=== PATIENT | female | born 1990 | race Caucasian/White ===

== ENCOUNTER 2016-06-27 00:11 | Emergency (ER) | payer OTHER ==
[2016-06-27] MEDS ORDERED: Ketorolac INJ* 30 MG/ML 1 ML VIAL IV ONE (00:33)
[2016-06-27] MEDS ORDERED: Ondansetron INJ* 2 MG/ML VIAL IV ONE (00:33)
[2016-06-27] MEDS ORDERED: NS 0.9% 1000 ML* 2,000 ML IV ONE (00:33)
[2016-06-27 00:55] LABS: ALT 14 U/L (7-52); AST 35 U/L (13-39); Albumin 4.4 g/dL (3.2-5.2); Alkaline Phosphatase 30 U/L (34-104); Anion Gap 7 mmol/L (2-11); BUN/Creatinine Ratio 13.5 (8-20); Blood Urea Nitrogen 12 mg/dL (6-24); C Reactive Protein 19.38 mg/L (< 5.00); CO2 Carbon Dioxide 27 mmol/L (22-32); Calcium 9.4 mg/dL (8.6-10.3); Chloride 103 mmol/L (101-111); EGFR African American 98.6 (>60); EGFR Non-African American 76.7 (>60); Globulin 2.8 g/dL (2-4); Glucose 92 mg/dL (70-100); Potassium 3.6 mmol/L (3.5-5.0); Sodium 137 mmol/L (133-145); Total Protein 7.2 g/dL (6.4-8.9)
[2016-06-27 01:03] LABS: Hematocrit 42 % (35-47); Hemoglobin 14.4 g/dl (12.0-16.0); Mean Corpuscular HGB Conc 34 g/dl (31-36); Mean Corpuscular Hemoglobin 32 pg (27-31); Mean Corpuscular Volume 93 fL (80-97); Mean Platelet Volume 9 um3 (7.4-10.4); Red Blood Count 4.51 10^6/ul (4.0-5.4); Red Cell Distribution Width 13 % (10.5-15); White Blood Count 3.3 10^3/ul (3.5-10.8)
[2016-06-27 01:05] LABS: Comments Flag Yes
[2016-06-27 01:06] LABS: Add Diff/Slide Review? Slide Review Added
[2016-06-27 01:10] LABS: Urine Bacteria Absent (Absent); Urine Bilirubin Negative (Negative); Urine Glucose Negative (Negative); Urine Nitrite Negative (Negative)
[2016-06-27] MEDS ORDERED: Iohexol 300* (CONTRAST) 10 ML SDV IV ONE (01:18)
[2016-06-27] MEDS ORDERED: Ondansetron ODT TAB* 4 MG PO ONE (03:42)
--- NOTE | 2016-06-27 03:48 | ED ---
Tom Montes SooYoung, scribed for Andrea Melchor MD on 06/27/16 at 0040 . Complex/Multi-Sys Presentation - HPI Summary HPI Summary: A 26 y/o F presents to ED with c/o rectal bleeding (5x) onset three hours ago. Associated sx onset a few days include vomiting, fever, midline abd pain described as bloating, melena. She rates the pain as 8 out of 10. Rectal bleeding was "dark red, clotty" and occurred even when she was not having a BM. She is unsure of the amount of blood passed, but says "maybe a teaspoon." Denies dysuria, vaginal bleeding or discharge. She says she has a friend who is also sick currently with vomiting. LNMP: around 06/02/2016. - History Of Current Complaint Chief Complaint: EDNauseaVomitDiarrh Time Seen by Provider: 06/27/16 00:23 Hx Obtained From: Patient Onset/Duration: Lasting Hours, Lasting Days, Still Present Timing: Constant Severity Currently: Moderate Severity Initially: Moderate Associated Signs And Symptoms: Positive: Other - see HPI - Allergies/Home Medications Allergies/Adverse Reactions: Allergies Allergy/AdvReac Type Severity Reaction Status Date / Time Diphenhydramine Allergy Hallucinati Verified 04/20/16 15:18 [From Benadryl] ons PMH/Surg Hx/FS Hx/Imm Hx Previously Healthy: Yes Endocrine/Hematology History: Denies: Hx Diabetes, Hx Thyroid Disease Cardiovascular History: Reports: Other Cardiovascular Problems/Disorders - SVT Denies: Hx Congestive Heart Failure, Hx Hypertension, Hx Pacemaker/ICD Respiratory History: Denies: Hx Asthma, Hx Chronic Obstructive Pulmonary Disease (COPD) GI History: Denies: Hx Ulcer History: Denies: Hx Dialysis, Hx Renal Disease Musculoskeletal History: Reports: Hx Scoliosis Sensory History: Reports: Hx Contacts or Glasses Denies: Hx Hearing Aid Opthamlomology History: Reports: Hx Contacts or Glasses Psychiatric History: Denies: Hx Panic Disorder - Surgical History Surgery Procedure, Year, and Place: tubes in ears - childhood; Infectious Disease History: No Infectious Disease History: Denies: Hx Clostridium Difficile, Hx Hepatitis, Hx Human Immunodeficiency Virus (HIV), Hx of Known/Suspected MRSA, Hx Shingles, Hx Tuberculosis, Hx Known/ Suspected VRE, Hx Known/Suspected VRSA, History Other Infectious Disease, Traveled Outside the [place] in Last 30 Days - Family History Known Family History: Positive: Blood Disorder - Anemia, Other - A Fib, murmur - Social History Occupation: Employed Full-time Lives: With Family Alcohol Use: Weekly Hx Substance Use: No Substance Use Type: Reports: None Hx Tobacco Use: No Smoking Status (MU): Never Smoked Tobacco Review of Systems Positive: Fever Positive: Abdominal Pain, Vomiting, Nausea Positive: other - melena, rectal bleeding without BM. Negative: dysuria, discharge - neg: vag bleeding and discharge All Other Systems Reviewed And Are Negative: Yes Physical Exam Triage Information Reviewed: Yes Vital Signs On Initial Exam: Initial Vitals Temp Pulse Resp BP Pulse Ox 98.8 F 80 18 115/73 100 06/27/16 00:32 06/27/16 00:32 06/27/16 00:32 06/27/16 00:32 06/27/16 00:32 Vital Signs Reviewed: Yes Appearance: Positive: Well-Appearing, Pain Distress - MILD Skin: Positive: Warm, Skin Color Reflects Adequate Perfusion, Dry Head/Face: Positive: Normal Head/Face Inspection Eyes: Positive: EOMI, ESA ENT: Positive: Normal ENT inspection, Other - ORAL MUCOSA MOIST Neck: Positive: Supple, Nontender Respiratory/Lung Sounds: Positive: Clear to Auscultation, Breath Sounds Present Cardiovascular: Positive: RRR Abdomen Description: Positive: Soft, Other: - TENDER IN PERUMBILICAL REGION Bowel Sounds: Positive: Hypoactive Musculoskeletal: Positive: Normal, Strength/ROM Intact Neurological: Positive: Normal, Sensory/Motor Intact, Alert, Oriented to Person Place, Time Psychiatric: Positive: Affect/Mood Appropriate Diagnostics - Vital Signs Vital Signs Temp Pulse Resp BP Pulse Ox 06/27/16 00:32 98.8 F 80 18 115/73 100 - Laboratory Lab Results: Lab Results 06/27/16 06/27/16 06/27/16 Range/Units 00:22 00:22 00:22 WBC 3.3 L (3.5-10.8) 10^3/ul RBC 4.51 (4.0-5.4) 10^6/ul Hgb 14.4 (12.0-16.0) g/dl Hct 42 (35-47) % MCV 93 (80-97) fL MCH 32 H (27-31) pg MCHC 34 (31-36) g/dl RDW 13 (10.5-15) % Plt Count 136 L (150-450) 10^3/ul MPV 9 (7.4-10.4) um3 Neut % (Auto) 58.4 (38-83) % Lymph % (Auto) 26.7 (25-47) % [place] % (Auto) 13.6 H (1-9) % Eos % (Auto) 0.7 (0-6) % Baso % (Auto) 0.6 (0-2) % Absolute Neuts (auto) 1.9 (1.5-7.7) 10^3/ul Absolute Lymphs (auto) 0.9 L (1.0-4.8) 10^3/ul Absolute Monos (auto) 0.4 (0-0.8) 10^3/ul Absolute Eos (auto) 0 (0-0.6) 10^3/ul Absolute Basos (auto) 0 (0-0.2) 10^3/ul Absolute Nucleated RBC 0.01 10^3/ul Nucleated RBC % 0.3 INR (Anticoag Therapy) 1.05 (0.89-1.11) APTT 25.8 L (26.0-36.3) seconds Sodium 137 (133-145) mmol/L Potassium 3.6 (3.5-5.0) mmol/L Chloride 103 (101-111) mmol/L Carbon Dioxide 27 (22-32) mmol/L Anion Gap 7 (2-11) mmol/L BUN 12 (6-24) mg/dL Creatinine 0.89 (0.51-0.95) mg/dL Est GFR ( Amer) 98.6 (>60) Est GFR (Non-Af Amer) 76.7 (>60) BUN/Creatinine Ratio 13.5 (8-20) Glucose 92 (70-100) mg/dL Lactic Acid (0.5-2.0) mmol/L Calcium 9.4 (8.6-10.3) mg/dL Total Bilirubin 0.70 (0.2-1.0) mg/dL AST 35 (13-39) U/L ALT 14 (7-52) U/L Alkaline Phosphatase 30 L (34-104) U/L C-Reactive Protein 19.38 H (< 5.00) mg/L Total Protein 7.2 (6.4-8.9) g/dL Albumin 4.4 (3.2-5.2) g/dL Globulin 2.8 (2-4) g/dL Albumin/Globulin Ratio 1.6 (1-3) Beta HCG, Quant < 0.60 mIU/mL Urine Color Urine Appearance Urine pH (5-9) Ur Specific [place] (1.010-1.030) Urine Protein (Negative) Urine Ketones (Negative) Urine Blood (Negative) Urine Nitrate (Negative) Urine Bilirubin (Negative) Urine Urobilinogen (Negative) Ur Leukocyte Esterase (Negative) Urine WBC (Auto) (Absent) Urine RBC (Auto) (Absent) Ur Squamous Epith Cells (Absent) Urine Bacteria (Absent) Hyaline Casts (Absent) Urine Glucose (Negative) 06/27/16 06/27/16 Range/Units 00:22 00:51 WBC (3.5-10.8) 10^3/ul RBC (4.0-5.4) 10^6/ul Hgb (12.0-16.0) g/dl Hct (35-47) % MCV (80-97) fL MCH (27-31) pg MCHC (31-36) g/dl RDW (10.5-15) % Plt Count (150-450) 10^3/ul MPV (7.4-10.4) um3 Neut % (Auto) (38-83) % Lymph % (Auto) (25-47) % Dickey % (Auto) (1-9) % Eos % (Auto) (0-6) % Baso % (Auto) (0-2) % Absolute Neuts (auto) (1.5-7.7) 10^3/ul Absolute Lymphs (auto) (1.0-4.8) 10^3/ul Absolute Monos (auto) (0-0.8) 10^3/ul Absolute Eos (auto) (0-0.6) 10^3/ul Absolute Basos (auto) (0-0.2) 10^3/ul Absolute Nucleated RBC 10^3/ul Nucleated RBC % INR (Anticoag Therapy) (0.89-1.11) APTT (26.0-36.3) seconds Sodium (133-145) mmol/L Potassium (3.5-5.0) mmol/L Chloride (101-111) mmol/L Carbon Dioxide (22-32) mmol/L Anion Gap (2-11) mmol/L BUN (6-24) mg/dL Creatinine (0.51-0.95) mg/dL Est GFR ( Amer) (>60) Est GFR (Non-Af Amer) (>60) BUN/Creatinine Ratio (8-20) Glucose (70-100) mg/dL Lactic Acid 0.7 (0.5-2.0) mmol/L Calcium (8.6-10.3) mg/dL Total Bilirubin (0.2-1.0) mg/dL AST (13-39) U/L ALT (7-52) U/L Alkaline Phosphatase (34-104) U/L C-Reactive Protein (< 5.00) mg/L Total Protein (6.4-8.9) g/dL Albumin (3.2-5.2) g/dL Globulin (2-4) g/dL Albumin/Globulin Ratio (1-3) Beta HCG, Quant mIU/mL Urine Color Yellow Urine Appearance Cloudy Urine pH 5.0 (5-9) Ur Specific [place] 1.016 (1.010-1.030) Urine Protein Negative (Negative) Urine Ketones Negative (Negative) Urine Blood 2+ H (Negative) Urine Nitrate Negative (Negative) Urine Bilirubin Negative (Negative) Urine Urobilinogen Negative (Negative) Ur Leukocyte Esterase Negative (Negative) Urine WBC (Auto) Trace(0-5/hpf) (Absent) Urine RBC (Auto) 1+(3-5/hpf) H (Absent) Ur Squamous Epith Cells Present H (Absent) Urine Bacteria Absent (Absent) Hyaline Casts Present H (Absent) Urine Glucose Negative (Negative) Result Diagrams: 06/27/16 00:22 06/27/16 00:22 Lab Statement: Any lab studies that have been ordered have been reviewed, and results considered in the medical decision making process. - CT A/P CT with ct CT Interpretation: No Acute Changes - IMPRESSION: No bowel obstructions, colitis , diverticulitis, or free air. Nml appendix. Unremarkable pancreas, kidneys, and gallbladder. Small physiologic free fluid cul-de-sac. CT Interpretation Completed By: Radiologist Re-Evaluation - Re-Evaluation 1 Re-Evaluation Time: 03:42 Change: Improved Comment: Discussing results with pt. Pt states feeling better and desire to go home. Complex Multi-Symp Course/Dx Assessment/Plan: NO STOOL/BRBPR IN ED. FEELS IMPROVED IN ED, WISHES TO GO HOME. DISCHARGE HOME STABLE. - Diagnoses Provider Diagnoses: Dehydration, Vomiting, Abdominal pain, GI bleed Discharge - Discharge Plan Condition: Stable Disposition: HOME Patient Education Materials: Dehydration (ED), Acute Nausea and Vomiting (ED), Acute Abdominal Pain (ED), Gastrointestinal Bleeding (ED) Referrals: Kim Babcock MD [Primary Care Provider] - Additional Instructions: FOLLOW UP WITH YOUR DOCTOR FOR THE BLOOD IN YOUR STOOL. RETURN TO THE EMERGENCY DEPARTMENT FOR ANY WORSENING OF YOUR CONDITION; CONTINUED OR WORSENING RECTAL BLEEDING, DEHYDRATION, YOU FEEL ILL OR QUESTIONS OR CONCERNS. The documentation as recorded by the Tom steen SooYoung accurately reflects the service I personally performed and the decisions made by me, Andrea Melchor MD.
[2016-06-27 04:02] VITALS: BP 148/72
--- NOTE | 2016-06-27 07:58 | RAD ---
INDICATION: Mid abdominal pain and vomiting. COMPARISON: Comparison is made with a prior CT of the abdomen and pelvis from February 06, 2015. TECHNIQUE: A CT scan of the abdomen and pelvis was performed with intravenous and oral contrast following intravenous injection of 81 ml of Omnipaque 300 nonionic contrast. Contiguous axial sections were obtained from the lung bases through the symphysis pubis. Images were reconstructed in the coronal and sagittal planes. FINDINGS: The lung bases are clear. No pleural effusion is present. The liver and spleen are within normal limits in size without significant focal abnormality. No calcified gallstones are seen. The pancreas appears to be within normal limits in size. The kidneys and adrenal glands are normal in size. No hydronephrosis is seen. No significant focal renal abnormality is seen. The aorta is normal in caliber and demonstrates homogeneous contrast opacification. No significant enlarged retroperitoneal lymph nodes are seen. The stomach, small and large bowel appear nondistended. The appendix is within normal limits. There is no evidence for diverticulitis or colitis. The uterus is anteverted and normal in size. There is a trace amount of free intraperitoneal fluid in the cul-de-sac. No free intraperitoneal air is seen. No significant focal osseous abnormality is seen. IMPRESSION: NO EVIDENCE FOR ACUTE FINDING OR CAUSE FOR THE PATIENT'S ABDOMINAL PAIN IS SEEN.
== END 2016-06-27 04:01 | disposition home or self-care (01) ==
LOC: ED 00:11
DX: E86.0 Dehydration (principal); R11.10 Vomiting, unspecified; R10.9 Unspecified abdominal pain; K92.2 Gastrointestinal hemorrhage, unspecified; I47.1 Supraventricular tachycardia
CPT/HCPCS: 36415; 74177; 80053; 81003; 81015; 83605; 84702; 85025; 85610; 85730; 86140; 96360; 96365; 96374; 96375; 99282; A9270-GY; J1885; J2405; Q9967

== ENCOUNTER 2016-08-13 17:07 | Emergency (ER) | payer OTHER ==
--- NOTE | 2016-08-13 18:11 | ED ---
Throat Pain/Nasal Congestion - HPI Summary HPI Summary: 26F presents for pain management of sinus cysts. She states the cyst were found a CT for the brain and recently they have started to cause her symptoms. She can not get into an ENT for a month and a half. She has been using tyenlol, ibuprofen, flonase, migraine medication, amoxicillin without relief. She states the pain has gotten worst and now radiates to her ears especially on the left side. She admits to blurry vision due to pain. - History of Current Complaint Chief Complaint: EDGeneral Time Seen by Provider: 08/13/16 17:18 - Allergies/Home Medications Allergies/Adverse Reactions: Allergies Allergy/AdvReac Type Severity Reaction Status Date / Time Diphenhydramine Allergy Hallucinati Verified 04/20/16 15:18 [From Benadryl] ons PMH/Surg Hx/FS Hx/Imm Hx Endocrine/Hematology History: Denies: Hx Diabetes, Hx Thyroid Disease Cardiovascular History: Reports: Other Cardiovascular Problems/Disorders - SVT Denies: Hx Congestive Heart Failure, Hx Hypertension, Hx Pacemaker/ICD Respiratory History: Denies: Hx Asthma, Hx Chronic Obstructive Pulmonary Disease (COPD) GI History: Denies: Hx Ulcer History: Denies: Hx Dialysis, Hx Renal Disease Musculoskeletal History: Reports: Hx Scoliosis Sensory History: Reports: Hx Contacts or Glasses Denies: Hx Hearing Aid Opthamlomology History: Reports: Hx Contacts or Glasses Psychiatric History: Denies: Hx Panic Disorder - Surgical History Surgery Procedure, Year, and Place: tubes in ears - childhood; Infectious Disease History: No Infectious Disease History: Denies: Hx Clostridium Difficile, Hx Hepatitis, Hx Human Immunodeficiency Virus (HIV), Hx of Known/Suspected MRSA, Hx Shingles, Hx Tuberculosis, Hx Known/ Suspected VRE, Hx Known/Suspected VRSA, History Other Infectious Disease, Traveled Outside the [place] in Last 30 Days - Family History Known Family History: Positive: None, Blood Disorder - Anemia, Other - A Fib, murmur Family History: R & n/C - Social History Alcohol Use: Weekly Hx Substance Use: No Substance Use Type: Reports: None Hx Tobacco Use: No Smoking Status (MU): Never Smoked Tobacco Review of Systems Negative: Fever Positive: Other - sinus pain Negative: Chest Pain Negative: Shortness Of Breath Positive: Headache All Other Systems Reviewed And Are Negative: Yes Physical Exam Triage Information Reviewed: Yes Vital Signs On Initial Exam: Initial Vitals Temp Pulse Resp BP Pulse Ox 99.4 F 92 20 126/85 100 08/13/16 17:10 08/13/16 17:10 08/13/16 17:10 08/13/16 17:10 08/13/16 17:10 Vital Signs Reviewed: Yes Appearance: Positive: Well-Appearing Skin: Positive: Warm, Dry Head/Face: Positive: Normal Head/Face Inspection Eyes: Positive: Normal, Conjunctiva Clear ENT: Positive: Normal ENT inspection, Pharynx normal, TMs normal, Other - nontender over sinuses Respiratory/Lung Sounds: Positive: Clear to Auscultation, Breath Sounds Present Cardiovascular: Positive: Normal, RRR Diagnostics - Vital Signs Vital Signs Temp Pulse Resp BP Pulse Ox 08/13/16 17:10 99.4 F 92 20 126/85 100 - Laboratory Lab Statement: Any lab studies that have been ordered have been reviewed, and results considered in the medical decision making process. EENT Course/Dx - Course Course Of Treatment: 26F presents for pain control of sinus cyst. has tried flonase, antibiotics, sudafed, and different pain medication without relief. does not have a ENT for over a month. normal PE. discussed options could try afrin, narcoctic pain medication, ibuprofen. patient said will try narcoctics for at night to get through pain until sees ENT. patient asked if a repeat CT would be of benefit but discussed that surgery for this is not urgent so it will not change anything. patient understands and agrees with plan - Differential Diagnoses Differential Diagnoses: Allergic Rhinitis, Sinusitis, Other - sinus cyst - Diagnoses Provider Diagnoses: Nasal sinus cyst Discharge - Discharge Plan Condition: Good Disposition: HOME Prescriptions: Ibuprofen TAB* [Motrin TAB* 800 MG] 800 mg PO Q6H #40 tab oxyCODONE/Acetamin 5/325 MG* [Percocet 5/325 TAB*] 1 tab PO Q6H PRN #12 tab MDD 4 PRN Reason: Pain Referrals: Kim Babcock MD [Primary Care Provider] - Additional Instructions: Follow up with ENT Continue Flonase Take ibuprofen every 6 hours for pain and use narcotic for break through pain Increase fiber intake with narcotic use Return to ED if develop any new or worsening symptoms
[2016-08-13 18:27] VITALS: BP 128/76
== END 2016-08-13 18:29 | disposition home or self-care (01) ==
LOC: ED 17:07
DX: J34.1 Cyst and mucocele of nose and nasal sinus (principal); R51 Headache
CPT/HCPCS: 99281

== ENCOUNTER 2016-09-07 20:45 | Emergency (ER) | payer OTHER ==
[2016-09-07 21:04] VITALS: BP 130/73
--- NOTE | 2016-09-07 22:22 | UC ---
Complaint Female HPI - HPI Summary HPI Summary: co mplaint of lower back pain /right flank discomfort white cloudy urine that started today inceased frequency and urgency of urination some mild discomfort with urintion denies fever,chills, abdominal pain LMP menses has been irregular - History Of Current Complaint Chief Complaint: UCBackPain Stated Complaint: BACK PAIN CLOUDY URINE Time Seen by Provider: 09/07/16 22:15 Hx Obtained From: Patient Hx Last Menstrual Period: 3 wks ago - Allergies/Home Medications Allergies/Adverse Reactions: Allergies Allergy/AdvReac Type Severity Reaction Status Date / Time Diphenhydramine Allergy Hallucinati Verified 09/07/16 21:05 [From Benadryl] ons PMH/Surg Hx/FS Hx/Imm Hx Previously Healthy: Yes Endocrine History Of: Denies: Diabetes, Thyroid Disease Cardiovascular History Of: Denies: Cardiac Disorders, Hypertension, Pacemaker/ICD, Congestive Heart Failure Respiratory History Of: Denies: COPD, Asthma GI/ History Of: Denies: Ulcer, Renal Disease - Surgical History Surgical History: Yes Surgery Procedure, Year, and Place: tubes in ears - childhood; - Family History Known Family History: Positive: None, Blood Disorder - Anemia, Other - A Fib, murmur Negative: Hypertension, Diabetes Family History: R & n/C - Social History Occupation: Employed Full-time Lives: With Family Alcohol Use: Occasionally Substance Use Type: None Smoking Status (MU): Never Smoked Tobacco - Immunization History Most Recent Influenza Vaccination: No Most Recent Tetanus Shot: unknown Most Recent Pneumonia Vaccination: never Review of Systems Constitutional: Negative Skin: Negative Eyes: Negative ENT: Negative Respiratory: Negative Cardiovascular: Negative Gastrointestinal: Negative Genitourinary: Dysuria, Hematuria, Frequency, Urgency Motor: Negative Neurovascular: Negative Musculoskeletal: Negative Neurological: Negative Psychological: Negative All Other Systems Reviewed And Are Negative: Yes Physical Exam Triage Information Reviewed: Yes Appearance: No Pain Distress, Well-Nourished Vital Signs: Initial Vital Signs Temp 98.2 F 09/07/16 21:00 Pulse 100 09/07/16 21:00 Resp 18 09/07/16 21:00 BP 130/73 09/07/16 21:00 Pulse Ox 100 09/07/16 21:00 Vital Signs Reviewed: Yes Eyes: Positive: Conjunctiva Clear ENT: Positive: Pharynx normal, TMs normal Neck: Positive: No Lymphadenopathy Respiratory: Positive: Lungs clear, Normal breath sounds, No respiratory distress Cardiovascular: Positive: RRR, No Murmur, Pulses Normal Abdomen Description: Positive: Nontender, Soft. Negative: CVA Tenderness (R), CVA Tenderness (L) Bowel Sounds: Positive: Present Musculoskeletal: Positive: No Edema Neurological: Positive: Alert Psychological Exam: Normal Skin Exam: Normal Complaint Female Dx - Course Course Of Treatment: exam completed. will treat for UTI and discussed possibility of possible kidney stone and when to sek further care - Differential Dx/Diagnosis Differential Diagnosis/HQI/PQRI: Ureteral Stone, Urinary Tract Infection Provider Diagnoses: UTI Discharge - Discharge Plan Condition: Stable Disposition: HOME Prescriptions: Sulfamethox/Trimethoprim DS* [Bactrim DS 800/160 TAB*] 1 tab PO BID #9 tab Patient Education Materials: Urinary Tract Infection in Women (ED), Kidney Stones (ED) Referrals: Kim Babcock MD [Primary Care Provider] - Additional Instructions: Your blood pressure is pre-hypertensive reading. Please contact your primary care provider within 1 day -4 weeks for further evaluation. Please take antibiotic as directed Increase fluids and rest Take acetaminophen or ibuprofen for fever or pain Please review your discharge instructions. If you have an increase in pain please seek care in the Emergency Room for possible kidney stone If your symptoms do not improve please call your primary care provider or return to urgent care.
[2016-09-07] MEDS ORDERED: Sulfamethox/Trimethoprim DS 800/160* TAB PO ONE (22:28)
== END 2016-09-07 22:43 | disposition home or self-care (01) ==
LOC: UCEAST 20:45
DX: N39.0 Urinary tract infection, site not specified (principal); R31.9 Hematuria, unspecified; Z32.02 Encounter for pregnancy test, result negative
CPT/HCPCS: 81003; 84702; 87086; 99212; A9270-GY; G0463

== ENCOUNTER 2016-09-16 11:34 | Emergency (ER) | payer OTHER ==
[2016-09-16 12:35] VITALS: BP 117/72
== END 2016-09-16 13:36 | disposition left against medical advice (07) ==
LOC: ED 11:34
DX: R10.9 Unspecified abdominal pain (principal); R06.02 Shortness of breath; Z53.21 Procedure and treatment not carried out due to patient leaving prior to being seen by health care provider

== ENCOUNTER 2016-10-26 18:46 | Emergency (ER) | payer OTHER ==
[2016-10-26 19:48] VITALS: BP 138/76
--- NOTE | 2016-10-26 19:51 | UC ---
Throat Pain/Nasal [place] HPI - HPI Summary HPI Summary: Sore throat and vomiting today took a nap and awoke with a red and draining left eye---has not had contacts in for over 24 hours - History of Current Complaint Hx Obtained From: Patient Hx Last Menstrual Period: 3 wks ago ?: No Onset/Duration: Sudden Onset, Lasting Days - 1, Still Present Severity: Moderate Pain Intensity: 4 Pain Scale Used: 0-10 Numeric Cough: None <Kaur Navarro - Last Filed: 10/26/16 21:06> <Carol Nuñez - Last Filed: 10/27/16 07:28> - History of Current Complaint Chief Complaint: UCRespiratory Stated Complaint: SORE THROAT, VOMITING, AND EYE IRRIATION Time Seen by Provider: 10/26/16 19:50 - Allergies/Home Medications Allergies/Adverse Reactions: Allergies Allergy/AdvReac Type Severity Reaction Status Date / Time Diphenhydramine Allergy Hallucinati Verified 09/07/16 21:05 [From [place]] ons PMH/Surg Hx/FS Hx/Imm Hx Previously Healthy: Yes Endocrine History Of: Denies: Diabetes, Thyroid Disease Cardiovascular History Of: Denies: Cardiac Disorders, Hypertension, Pacemaker/ICD, Congestive Heart Failure Respiratory History Of: Denies: COPD, Asthma GI/ History Of: Denies: Ulcer, Renal Disease - Surgical History Surgical History: Yes Surgery Procedure, Year, and Place: tubes in ears - childhood; - Family History Known Family History: Positive: None, Blood Disorder - Anemia, Other - A Fib, murmur Negative: Hypertension, Diabetes Family History: R & n/C - Social History 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 Lives: With Family Alcohol Use: Occasionally Substance Use Type: None Smoking Status (MU): Never Smoked Tobacco - Immunization History Most Recent Influenza Vaccination: No Most Recent Tetanus Shot: unknown Most Recent Pneumonia Vaccination: never <Kaur Navarro - Last Filed: 10/26/16 21:06> Review of Systems Constitutional: Fatigue Skin: Negative Eyes: Drainage - left, Eye Redness - left ENT: Sore Throat Respiratory: Negative Cardiovascular: Negative Gastrointestinal: Negative Genitourinary: Negative Motor: Negative Neurovascular: Negative Musculoskeletal: Negative Neurological: Negative Psychological: Negative All Other Systems Reviewed And Are Negative: Yes <Kaur Navarro - Last Filed: 10/26/16 21:06> Physical Exam Triage Information Reviewed: Yes Appearance: Well-Appearing, No Pain Distress, Well-Nourished Vital Signs: Initial Vital Signs Temp 98.5 F 10/26/16 19:44 Pulse 70 10/26/16 19:44 Resp 18 10/26/16 19:44 BP 138/76 10/26/16 19:44 Pulse Ox 100 10/26/16 19:44 Vital Signs Reviewed: Yes Eye Exam: Normal Eyes: Positive: Conjunctiva Inflamed - left, Discharge - left ENT Exam: Normal ENT: Positive: Normal ENT inspection, Hearing grossly normal, Pharynx normal, TMs normal. Negative: Nasal congestion, Nasal drainage, Tonsillar swelling, Tonsillar exudate, Trismus, Muffled/hoarse voice Dental Exam: Normal Neck exam: Normal Neck: Positive: Supple, Nontender, No Lymphadenopathy Respiratory Exam: Normal Respiratory: Positive: Chest non-tender, Lungs clear, Normal breath sounds, No respiratory distress, No accessory muscle use Cardiovascular Exam: Normal Cardiovascular: Positive: RRR, No Murmur, Pulses Normal, Brisk Capillary Refill Abdominal Exam: Normal Abdomen Description: Positive: Nontender, No Organomegaly, Soft Bowel Sounds: Positive: Present Musculoskeletal Exam: Normal Musculoskeletal: Positive: Strength Intact, ROM Intact Neurological Exam: Normal Neurological: Positive: Alert, Muscle Tone Normal Psychological Exam: Normal Psychological: Positive: Normal Response To Family Skin Exam: Normal <Kaur Navarro - Last Filed: 10/26/16 21:06> Vital Signs: Initial Vital Signs Temp 98.5 F 10/26/16 19:44 Pulse 70 10/26/16 19:44 Resp 18 10/26/16 19:44 BP 138/76 10/26/16 19:44 Pulse Ox 100 10/26/16 19:44 <Carol Nuñez - Last Filed: 10/27/16 07:28> Diagnostics - Laboratory Diagnostic Studies Completed/Ordered: RST (-), Upreg (-), Ua WNL <Kaur Navarro - Last Filed: 10/26/16 21:06> Throat Pain/Nasal Course/Dx - Course Assessment/Plan: polytrim opthalmic drops, rest clear liquids and advance diet slowly follow with pcp - Differential Dx/Diagnosis Differential Diagnosis/HQI/PQRI: Laryngitis, Otitis Media, Pharyngitis, URI Provider Diagnoses: OS Conjuctivitis, Acute nausea and vomiting <Kaur Navarro - Last Filed: 10/26/16 21:06> Discharge <Kaur Navarro - Last Filed: 10/26/16 21:06> <Carol Nuñez - Last Filed: 10/27/16 07:28> - Discharge Plan Condition: Stable Disposition: HOME Patient Education Materials: Clear Liquid Diet (ED), How to Use Eye Drops (ED) , Acute Nausea and Vomiting (ED), Conjunctivitis (ED) Forms: *Work Release Referrals: Kim Babcock MD [Primary Care Provider] - If Needed Attestation Statement User Type: Provider - I was available for consult. This patient was seen by the [facility]. The patient was not presented to, seen by, or examined by me. -Juan Daniel <Carol Nuñez - Last Filed: 10/27/16 07:28>
[2016-10-26] MEDS ORDERED: Polymyx/Trimethoprim OPTH* 10 ML BTL LEFT EYE ONE (20:23)
== END 2016-10-26 21:10 | disposition home or self-care (01) ==
LOC: UCEAST 18:46
DX: H10.32 Unspecified acute conjunctivitis, left eye (principal); R11.2 Nausea with vomiting, unspecified; Z32.02 Encounter for pregnancy test, result negative; Z88.8 Allergy status to other drugs, medicaments and biological substances
CPT/HCPCS: 81003; 84702; 87651; 99212; G0463

== ENCOUNTER 2016-11-09 11:13 | Emergency (ER) | payer OTHER ==
[2016-11-09 11:35] VITALS: BP 127/69
[2016-11-09] MEDS ORDERED: Fluorescein Sodium TOPICAL* 1 MG TEST OPHTHALMIC ONE (12:21)
[2016-11-09] MEDS ORDERED: Fluorescein Sodium TOPICAL* 1 MG TEST ONE (12:22)
--- NOTE | 2016-11-09 12:49 | UC ---
Eye Complaint HPI - HPI Summary HPI Summary: L eye red and burning irritation with crusting in the morning starting about 2 days ago. Had R eye conjunctivitis a couple weeks ago that she treated with abx drops and it got better in a week or so. Denies nasal congestion, itching, allergies, or injury. Uses contacts but never sleeps in them and always changes them monthly like she is supposed to. No visual changes. - History of Current Complaint Chief Complaint: UCEye Stated Complaint: EYE ISSUE Time Seen by Provider: 11/09/16 12:20 Hx Obtained From: Patient Hx Last Menstrual Period: 10/31/16 ?: No Onset/Duration: Gradual Onset, Lasting Days Timing: Constant Severity Initially: Mild Severity Currently: Mild Pain Intensity: 1 Pain Scale Used: 0-10 Numeric Location of Injury: Conjunctiva Character: Dull Aggravating Factor(s): Light Alleviating Factor(s): Darkness Associated Signs And Symptoms: Positive: Drainage (Clear) - Risk Factors Penetrating Injury Risk Factor: Negative Globe Rupture Risk Factors: Negative Acute Glaucoma Risk Factors: Negative - Allergies/Home Medications Allergies/Adverse Reactions: Allergies Allergy/AdvReac Type Severity Reaction Status Date / Time Diphenhydramine Allergy Hallucinati Verified 11/09/16 11:17 [From Johnny] ons PMH/Surg Hx/FS Hx/Imm Hx Previously Healthy: Yes - Surgical History Surgical History: Yes Surgery Procedure, Year, and Place: tubes in ears - childhood; - Family History Known Family History: Positive: None, Blood Disorder - Anemia, Other - A Fib, murmur Negative: Hypertension, Diabetes Family History: R & n/C - Social History Alcohol Use: Occasionally Substance Use Type: None Smoking Status (MU): Never Smoked Tobacco - Immunization History Most Recent Influenza Vaccination: No Most Recent Tetanus Shot: unknown Most Recent Pneumonia Vaccination: never Review of Systems Constitutional: Negative Skin: Negative Eyes: Eye Redness ENT: Negative Respiratory: Negative Cardiovascular: Negative Gastrointestinal: Negative Genitourinary: Negative Motor: Negative Neurovascular: Negative Musculoskeletal: Negative Neurological: Negative Psychological: Negative All Other Systems Reviewed And Are Negative: Yes Physical Exam Triage Information Reviewed: Yes Appearance: Well-Appearing, No Pain Distress, Well-Nourished Vital Signs: Initial Vital Signs Temp 98.9 F 11/09/16 11:20 Pulse 87 11/09/16 11:20 Resp 16 11/09/16 11:20 BP 127/69 11/09/16 11:20 Pulse Ox 100 11/09/16 11:20 Vital Signs Reviewed: Yes Eye Exam: Other - PERRL, EOM-I Eyes: Positive: Conjunctiva Inflamed - L, Other: - fluorescein test negative ENT Exam: Normal ENT: Positive: Normal ENT inspection, Hearing grossly normal, Pharynx normal, TMs normal Dental Exam: Normal Neck exam: Normal Respiratory Exam: Normal Respiratory: Positive: Chest non-tender, Lungs clear, Normal breath sounds, No respiratory distress, No accessory muscle use Cardiovascular Exam: Normal Cardiovascular: Positive: RRR, No Murmur Musculoskeletal Exam: Normal Neurological Exam: Normal Neurological: Positive: Alert Psychological Exam: Normal Skin Exam: Normal Eye Complaint Course/Dx - Differential Dx/Diagnosis Provider Diagnoses: L eye conjunctivitis Discharge - Discharge Plan Condition: Stable Disposition: HOME Prescriptions: Ciprofloxacin 0.3% OPTH.SHIRA* [Cipro 0.3% Opth*] 2 drop LEFT EYE QID #5 ml Patient Education Materials: Conjunctivitis (ED) Referrals: Kim Babcock MD [Primary Care Provider] - Alec Beltran MD [Medical Doctor] - Additional Instructions: If you do not have clear improvement over the next [address] Beltran for a follow-up exam.
== END 2016-11-09 12:42 | disposition home or self-care (01) ==
LOC: UCEAST 11:13
DX: H10.9 Unspecified conjunctivitis (principal)
CPT/HCPCS: 99212; A9270-GY; G0463

== ENCOUNTER 2016-11-29 21:31 | Emergency (ER) | payer OTHER ==
[2016-11-29 21:35] VITALS: BP 135/84
--- NOTE | 2016-11-29 23:21 | ED ---
Skin Complaint - HPI Summary HPI Summary: 26 female presents with complaints of a sore throat that began yesterday and rash that has been intermittent over the past 2-3 weeks. Patient states the rash is red on her arms and legs and comes and goes on its own. She also states she has been tired. States she had labwork recently showing that she has an autoimmune disorder however the lab value was really low. Denies known fever/ chills. Denies nausea/vomiting, headache and abdominal pain. Has not tried any medications and denies pruritis. It is non tender. No discharge. No new soaps, lotions, or detergents. No new medications. Has not been in the [place]. No other complaints. No PMHx. - History of Current Complaint Chief Complaint: EDRashSkinAbscess Time Seen by Provider: 11/29/16 22:25 Stated Complaint: LT ARM RASH/THROAT PAIN Hx Obtained From: Patient Hx Last Menstrual Period: 3 wks ago Onset/Duration: Started Weeks Ago, Still Present Skin Exposure Onset/Duration: Weeks Ago Timing: Intermittent Onset Severity: Mild Current Severity: Mild Pain Intensity: 6 Pain Scale Used: 0-10 Numeric - throat Skin Location: Arm, Leg Character: Redness Aggravating Symptom(s): Nothing Alleviating Symptom(s): Nothing Associated Signs & Symptoms: Rash - Additional Pertinent History Primary Care Physician: GERARDO - Allergy/Home Medications Allergies/Adverse Reactions: Allergies Allergy/AdvReac Type Severity Reaction Status Date / Time Diphenhydramine Allergy Hallucinati Verified 11/09/16 11:17 [From Benadryl] ons PMH/Surg Hx/FS Hx/Imm Hx Endocrine/Hematology History: Denies: Hx Diabetes, Hx Thyroid Disease Cardiovascular History: Reports: Other Cardiovascular Problems/Disorders - SVT Denies: Hx Congestive Heart Failure, Hx Hypertension, Hx Pacemaker/ICD Respiratory History: Denies: Hx Asthma, Hx Chronic Obstructive Pulmonary Disease (COPD) GI History: Denies: Hx Ulcer History: Denies: Hx Dialysis, Hx Renal Disease Musculoskeletal History: Reports: Hx Scoliosis Sensory History: Reports: Hx Contacts or Glasses Denies: Hx Hearing Aid Opthamlomology History: Reports: Hx Contacts or Glasses Psychiatric History: Denies: Hx Panic Disorder - Surgical History Surgery Procedure, Year, and Place: tubes in ears - childhood; - Immunization History Immunizations Up to Date: Yes Infectious Disease History: No Infectious Disease History: Denies: Hx Clostridium Difficile, Hx Hepatitis, Hx Human Immunodeficiency Virus (HIV), Hx of Known/Suspected MRSA, Hx Shingles, Hx Tuberculosis, Hx Known/ Suspected VRE, Hx Known/Suspected VRSA, History Other Infectious Disease, Traveled Outside the [place] in Last 30 Days - Family History Known Family History: Positive: None, Blood Disorder - Anemia, Other - A Fib, murmur Negative: Hypertension, Diabetes Family History: R & n/C - Social History Alcohol Use: None Hx Substance Use: No Substance Use Type: Reports: None Hx Tobacco Use: No Smoking Status (MU): Never Smoked Tobacco Review of Systems Positive: Fatigue Eyes: Negative Positive: Sore Throat Cardiovascular: Negative Respiratory: Negative Gastrointestinal: Negative Musculoskeletal: Negative Positive: Rash Neurological: Negative All Other Systems Reviewed And Are Negative: Yes Physical Exam Triage Information Reviewed: Yes Vital Signs On Initial Exam: Initial Vitals Temp Pulse Resp BP Pulse Ox 98.2 F 67 16 135/84 100 11/29/16 21:32 11/29/16 21:32 11/29/16 21:32 11/29/16 21:32 11/29/16 21:32 Vital Signs Reviewed: Yes Appearance: Positive: Well-Appearing - sleeping on bed on arrival, No Pain Distress, Well-Nourished Skin: Positive: Warm, Skin Color Reflects Adequate Perfusion, Dry, Erythema @ - non raised, non tender, no discharge areas over anterior thighs and right forearm. Multiple presentations some on forearm appearing in linear formation like scratches. Anterior thigh red papules, not raised. No specific presentation or pattern. Rest of skin exam normal. Head/Face: Positive: Normal Head/Face Inspection Eyes: Positive: Normal, Conjunctiva Clear ENT: Positive: Hearing grossly normal, Pharynx normal, TMs normal, Tonsillar swelling, Tonsillar exudate. Negative: Trismus, Muffled/hoarse voice Dental: Negative: Cervical Lymphadenopathy Neck: Positive: Supple, Nontender Respiratory/Lung Sounds: Positive: Clear to Auscultation, Breath Sounds Present. Negative: Rales, Rhonchi, Wheezes Cardiovascular: Positive: Normal, RRR, Pulses are Symmetrical in both Upper and Lower Extremities. Negative: Murmur, Rub Abdomen Description: Positive: Nontender, No Organomegaly, Soft Bowel Sounds: Positive: Present Musculoskeletal: Positive: Normal, Strength/ROM Intact Neurological: Positive: Normal, Sensory/Motor Intact, Alert, Oriented to Person Place, Time, NV Bundle Intact Distally, Normal Gait Psychiatric: Positive: Affect/Mood Appropriate AVPU Assessment: Alert Diagnostics - Vital Signs Vital Signs Temp Pulse Resp BP Pulse Ox 11/29/16 21:55 98.2 F 67 16 135/84 98 11/29/16 21:32 98.2 F 67 16 135/84 100 - Laboratory Lab Statement: Any lab studies that have been ordered have been reviewed, and results considered in the medical decision making process. Course/Dx - Course Course Of Treatment: strep culture and mono spot obtained. strep negative. monospot positive however patient has had mono in the past. pending mono EBV results to determine acute infection due to symptoms. told to try hydrocortisone cream and follow up with PCP for further work up as it may also be autoimmune. Does not appear graham, tinea, bacterial, posion melba, eczema, dermatitis or folliculitis like. Aware of worsening signs and symptoms to watch out for. - Differential Diagnoses - Skin Complaint Differential Diagnoses: Cellulitis, Contact Dermatitis, Eczema, Impetigo, Poison Melba, Tinea, Urticaria, Varicella Zoster, Other - mono, scarlet fever, strep - Diagnoses Provider Diagnoses: Rash and nonspecific skin eruption Discharge - Discharge Plan Condition: Stable Disposition: HOME Patient Education Materials: Acute Rash (ED) Referrals: Kim Babcock MD [Primary Care Provider] - Additional Instructions: Try using hydrocortisone to see if it helps with the rash. If worsens or does not improve please seek medical attention. Follow up with PCP for further work up.
[2016-11-29 23:55] LABS: Manual Entry Verification ROB0080; Mono Internal Control QC Line Present
[2016-12-02 14:14] LABS: EBV Capsid Ag IgG Ab Positive (Negative); EBV Capsid Ag IgM Ab Positive (Negative)
== END 2016-11-30 00:33 | disposition home or self-care (01) ==
LOC: ED 21:31
DX: R21 Rash and other nonspecific skin eruption (principal); M41.9 Scoliosis, unspecified
CPT/HCPCS: 36415; 86308; 86664; 86665; 87651; 99282

== ENCOUNTER 2016-12-25 10:14 | Emergency (ER) | payer OTHER ==
--- NOTE | 2016-12-25 11:02 | RAD ---
INDICATION: Chest pain COMPARISON: April 20, 2016 TECHNIQUE: An AP portable view obtained at 1040 hours is submitted. FINDINGS: Bones/Soft Tissues: There are no acute bony findings. Cardiomediastinal: The cardiomediastinal silhouette is normal. Lungs: There are no infiltrates. Pleura: There are no pleural effusions. Other: None IMPRESSION: NO ACTIVE DISEASE.
[2016-12-25 11:09] LABS: Hematocrit 40 % (35-47); Hemoglobin 13.3 g/dl (12.0-16.0); Mean Corpuscular HGB Conc 33 g/dl (31-36); Mean Corpuscular Hemoglobin 31 pg (27-31); Mean Corpuscular Volume 94 fL (80-97); Mean Platelet Volume 8 um3 (7.4-10.4); Red Blood Count 4.28 10^6/ul (4.0-5.4); Red Cell Distribution Width 13 % (10.5-15); White Blood Count 3.6 10^3/ul (3.5-10.8)
[2016-12-25] MEDS ORDERED: Ketorolac INJ* 30 MG/ML 1 ML VIAL IV PUSH ONE (11:15)
[2016-12-25 11:22] LABS: ALT 8 U/L (7-52); AST 14 U/L (13-39); Alkaline Phosphatase 23 U/L (34-104); Anion Gap 4 mmol/L (2-11); BUN/Creatinine Ratio 19.3 (8-20); Blood Urea Nitrogen 17 mg/dL (6-24); CO2 Carbon Dioxide 26 mmol/L (22-32); Calcium 9.1 mg/dL (8.6-10.3); Chloride 108 mmol/L (101-111); EGFR African American 99.9 (>60); EGFR Non-African American 77.7 (>60); Globulin 2.5 g/dL (2-4); Glucose 81 mg/dL (70-100); Sodium 138 mmol/L (133-145); Total Protein 6.5 g/dL (6.4-8.9)
[2016-12-25 11:47] LABS: TSH (Thyroid Stimulating Horm) 1.08 mcIU/mL (0.34-5.60)
[2016-12-25 12:34] VITALS: BP 112/77
--- NOTE | 2016-12-25 13:04 | ED ---
Camilo Montes Alfonso, scribed for Satnam Rice MD on 12/25/16 at 1033 . HPI Chest Pain - HPI Summary HPI Summary: This patient is a 26 year old F presenting to [facility] with a chief complaint of left-sided CP since 399 today. The pain awoke her from sleep. The pain radiates to her upper back and shoulder. The CC is described as a pressure. Pt rates the pain 8/10 in severity. Symptoms aggravated by deep breathing and alleviated by nothing. Pt reports nausea, and SOB. Pt denies vomiting and recent URI. Pt is taking BCP daily. She denies any PMHx and PSHx. FHx of CAD. - History of Current Complaint Chief Complaint: EDChestPainROMI Time Seen by Provider: 12/25/16 10:29 Hx Obtained From: Patient Onset/Duration: Started Hours Ago - 399 today, Still Present Timing: Constant Initial Severity: Severe Current Severity: Severe Pain Intensity: 8 Pain Scale Used: 0-10 Numeric Chest Pain Location: Discrete at: - Left sided chest Chest Pain Radiates: Yes Chest Pain Radiates To:: Back - Upper, Shoulder Character: Pressure/Squeezing Aggravating Factor(s): Deep Breaths Alleviating Factor(s): Nothing Associated Signs and Symptoms: Positive: Other: - Positive nausea, and SOB; negative vomiting and recent URI - Additional Pertinent History Primary Care Physician: GERARDO - Allergy/Home Medications Allergies/Adverse Reactions: Allergies Allergy/AdvReac Type Severity Reaction Status Date / Time Diphenhydramine Allergy Hallucinati Verified 11/09/16 11:17 [From Benadryl] ons PMH/Surg Hx/FS Hx/Imm Hx Endocrine/Hematology History: Denies: Hx Diabetes, Hx Thyroid Disease Cardiovascular History: Reports: Other Cardiovascular Problems/Disorders - SVT Denies: Hx Congestive Heart Failure, Hx Hypertension, Hx Pacemaker/ICD Respiratory History: Denies: Hx Asthma, Hx Chronic Obstructive Pulmonary Disease (COPD) GI History: Denies: Hx Ulcer History: Denies: Hx Dialysis, Hx Renal Disease Musculoskeletal History: Reports: Hx Scoliosis Sensory History: Reports: Hx Contacts or Glasses Denies: Hx Hearing Aid Opthamlomology History: Reports: Hx Contacts or Glasses Psychiatric History: Denies: Hx Panic Disorder - Surgical History Surgery Procedure, Year, and Place: tubes in ears - childhood; Infectious Disease History: Denies: Hx Clostridium Difficile, Hx Hepatitis, Hx Human Immunodeficiency Virus (HIV), Hx of Known/Suspected MRSA, Hx Shingles, Hx Tuberculosis, Hx Known/ Suspected VRE, Hx Known/Suspected VRSA, History Other Infectious Disease, Traveled Outside the [place] in Last 30 Days - Family History Known Family History: Positive: Cardiac Disease, Blood Disorder - Anemia, Other - A Fib, murmur Negative: Hypertension, Diabetes Family History: R & n/C - Social History Alcohol Use: None Hx Substance Use: No Substance Use Type: Reports: None Hx Tobacco Use: No Smoking Status (MU): Never Smoked Tobacco Review of Systems Positive: Other - Negative recent URI Positive: Chest Pain - Left-sided pressure Positive: Shortness Of Breath Positive: Nausea. Negative: Vomiting All Other Systems Reviewed And Are Negative: Yes Physical Exam - Summary Physical Exam Summary: VITAL SIGNS: Reviewed. GENERAL: Patient is a well-developed and nourished female who is lying comfortable in the stretcher. Patient is not in any acute respiratory distress. HEAD AND FACE: No signs of trauma. No ecchymosis, hematomas or skull depressions. No sinus tenderness. EYES: PERRLA, EOMI x 2, No injected conjunctiva, no nystagmus. EARS: Hearing grossly intact. Ear canals and tympanic membranes are within normal limits. MOUTH: Oropharynx within normal limits. NECK: Supple, trachea is midline, no adenopathy, no JVD, no carotid bruit, no c- spine tenderness, neck with full ROM. CHEST: Symmetric. Reproducible CP in left side of the chest. LUNGS: Clear to auscultation bilaterally. No wheezing or crackles. CVS: Regular rate and rhythm, S1 and S2 present, no murmurs or gallops appreciated. ABDOMEN: Soft, non-tender. No signs of distention. No rebound no guarding, and no masses palpated. Bowel sounds are normal. EXTREMITIES: FROM in all major joints, no edema, no cyanosis or clubbing. NEURO: Alert and oriented x 3. No acute neurological deficits. Speech is normal and follows commands. SKIN: Dry and warm Triage Information Reviewed: Yes Vital Signs On Initial Exam: Initial Vitals Temp Pulse Resp BP Pulse Ox 98.6 F 85 20 139/66 99 12/25/16 10:17 12/25/16 10:17 12/25/16 10:17 12/25/16 10:17 12/25/16 10:17 Vital Signs Reviewed: Yes Diagnostics - Vital Signs Vital Signs Temp Pulse Resp BP Pulse Ox 12/25/16 10:17 98.6 F 85 20 139/66 99 - Laboratory Lab Results: Lab Results 12/25/16 12/25/16 12/25/16 Range/Units 10:50 10:50 10:50 WBC 3.6 (3.5-10.8) 10^3/ul RBC 4.28 (4.0-5.4) 10^6/ul Hgb 13.3 (12.0-16.0) g/dl Hct 40 (35-47) % MCV 94 (80-97) fL MCH 31 (27-31) pg MCHC 33 (31-36) g/dl RDW 13 (10.5-15) % Plt Count 160 (150-450) 10^3/ul MPV 8 (7.4-10.4) um3 Neut % (Auto) 58.2 (38-83) % Lymph % (Auto) 30.1 (25-47) % Craig % (Auto) 9.6 H (1-9) % Eos % (Auto) 0.9 (0-6) % Baso % (Auto) 1.2 (0-2) % Absolute Neuts (auto) 2.1 (1.5-7.7) 10^3/ul Absolute Lymphs (auto) 1.1 (1.0-4.8) 10^3/ul Absolute Monos (auto) 0.4 (0-0.8) 10^3/ul Absolute Eos (auto) 0 (0-0.6) 10^3/ul Absolute Basos (auto) 0 (0-0.2) 10^3/ul Absolute Nucleated RBC 0 10^3/ul Nucleated RBC % 0.1 D-Dimer, Quantitative (Less Than 230) ng/mL Sodium 138 (133-145) mmol/L Potassium 4.0 (3.5-5.0) mmol/L Chloride 108 (101-111) mmol/L Carbon Dioxide 26 (22-32) mmol/L Anion Gap 4 (2-11) mmol/L BUN 17 (6-24) mg/dL Creatinine 0.88 (0.51-0.95) mg/dL Est GFR ( Amer) 99.9 (>60) Est GFR (Non-Af Amer) 77.7 (>60) BUN/Creatinine Ratio 19.3 (8-20) Glucose 81 (70-100) mg/dL Lactic Acid 0.9 (0.5-2.0) mmol/L Calcium 9.1 (8.6-10.3) mg/dL Total Bilirubin 0.60 (0.2-1.0) mg/dL AST 14 (13-39) U/L ALT 8 (7-52) U/L Alkaline Phosphatase 23 L (34-104) U/L CK-MB (CK-2) 1.1 (0.6-6.3) ng/mL Troponin I 0.00 (<0.04) ng/mL Total Protein 6.5 (6.4-8.9) g/dL Albumin 4.0 (3.2-5.2) g/dL Globulin 2.5 (2-4) g/dL Albumin/Globulin Ratio 1.6 (1-3) TSH 1.08 (0.34-5.60) mcIU/mL Beta HCG, Quant < 0.60 mIU/mL 12/25/16 Range/Units 10:50 WBC (3.5-10.8) 10^3/ul RBC (4.0-5.4) 10^6/ul Hgb (12.0-16.0) g/dl Hct (35-47) % MCV (80-97) fL MCH (27-31) pg MCHC (31-36) g/dl RDW (10.5-15) % Plt Count (150-450) 10^3/ul MPV (7.4-10.4) um3 Neut % (Auto) (38-83) % Lymph % (Auto) (25-47) % Craig % (Auto) (1-9) % Eos % (Auto) (0-6) % Baso % (Auto) (0-2) % Absolute Neuts (auto) (1.5-7.7) 10^3/ul Absolute Lymphs (auto) (1.0-4.8) 10^3/ul Absolute Monos (auto) (0-0.8) 10^3/ul Absolute Eos (auto) (0-0.6) 10^3/ul Absolute Basos (auto) (0-0.2) 10^3/ul Absolute Nucleated RBC 10^3/ul Nucleated RBC % D-Dimer, Quantitative < 200 (Less Than 230) ng/mL Sodium (133-145) mmol/L Potassium (3.5-5.0) mmol/L Chloride (101-111) mmol/L Carbon Dioxide (22-32) mmol/L Anion Gap (2-11) mmol/L BUN (6-24) mg/dL Creatinine (0.51-0.95) mg/dL Est GFR ( Amer) (>60) Est GFR (Non-Af Amer) (>60) BUN/Creatinine Ratio (8-20) Glucose (70-100) mg/dL Lactic Acid (0.5-2.0) mmol/L Calcium (8.6-10.3) mg/dL Total Bilirubin (0.2-1.0) mg/dL AST (13-39) U/L ALT (7-52) U/L Alkaline Phosphatase (34-104) U/L CK-MB (CK-2) (0.6-6.3) ng/mL Troponin I (<0.04) ng/mL Total Protein (6.4-8.9) g/dL Albumin (3.2-5.2) g/dL Globulin (2-4) g/dL Albumin/Globulin Ratio (1-3) TSH (0.34-5.60) mcIU/mL Beta HCG, Quant mIU/mL Result Diagrams: 12/25/16 10:50 12/25/16 10:50 Lab Statement: Any lab studies that have been ordered have been reviewed, and results considered in the medical decision making process. - Radiology CXR Radiology Interpretation Completed By: Radiologist - No active disease - EKG 1057 Cardiac Rate: NL - BPM 60 EKG Rhythm: Sinus Rhythm EKG Interpretation: No ST elevation. Re-Evaluation - Re-Evaluation 1250 Change: Improved Comment: Pt reports symptoms improved. She is not in any pain. Discussed labs and plan for discharge. She understands and agrees. Chest Pain Course/Dx - Course Course Of Treatment: This patient is a 26 year old F presenting to [facility] with a chief complaint of left-sided CP since 0400 today. The pain awoke her from sleep. The pain radiates to her upper back and shoulder. The CC is described as a pressure. Pt rates the pain 8/10 in severity. Symptoms aggravated by deep breathing and alleviated by nothing. Pt reports nausea, and SOB. Pt denies vomiting and recent URI. Pt is taking BCP daily. She denies any PMHx and PSHx. FHx of CAD. Assessment/Plan: Test without any significant abnormalities. D-dimmer <200. Troponin is 0.00. CXR is read as negative for acute disease. In the ED course patient was given Toradol and her symptoms improved. Therefore, I believe the symptoms are secondary to musculoskeletal pain. I have no suspicion for ACS or PE. At this point, I discussed the findings and results with the patient. She understands and agrees with the discharge plan. Patient is hemodynamically stable and A&Ox3. All questions were answered at patient satisfaction. There were no further complaints or concerns. Lung exam before discharge: CTA B/L. Good air exchange. No wheezing or crackles heard. CVS: S1 and S2 present. No murmurs appreciated. Patient is alert and oriented x 3. Patient is hemodynamically stable. Patient will be discharged home with follow up office support associate in the next 2-3 days - Chest Pain Differential Diagnosis/HQI/PQRI: ACS, Chest Wall, Lower Respiratory Infection - Diagnoses Provider Diagnoses: Atypical chest pain Discharge - Discharge Plan Condition: Stable Disposition: HOME Patient Education Materials: Chest Pain (ED) Referrals: Kim Babcock MD [Primary Care Provider] - 2 Days The documentation as recorded by the Camilo steen Alfonso accurately reflects the service I personally performed and the decisions made by me, Satnam Rice MD.
== END 2016-12-25 13:07 | disposition home or self-care (01) ==
LOC: ED 10:14
DX: R07.89 Other chest pain (principal); R11.0 Nausea; R06.02 Shortness of breath; Z32.02 Encounter for pregnancy test, result negative; M41.9 Scoliosis, unspecified; Z88.8 Allergy status to other drugs, medicaments and biological substances
CPT/HCPCS: 36415; 71010; 80053; 82553; 83605; 84443; 84484; 84702; 85025; 85379; 93005; 96374; 99282; J1885

== ENCOUNTER 2017-03-13 12:00 | Emergency (ER) | payer OTHER ==
[2017-03-13 12:58] VITALS: BP 119/78
--- NOTE | 2017-03-13 14:41 | UC ---
Corky Montes Angela, scribed for Radha Higgins MD on 03/13/17 at 1343 . Eye Complaint HPI - HPI Summary HPI Summary: This pt is a 26 y/o female presenting to [facility] c/o left eye drainage and redness for the past 2 weeks. She describes a yellow-green discharge but denies watery eye. Pt notes a pain in the middle of her eye and change of acuity in her left eye compared to the right. She uses contacts that are disposable every 2 weeks and states she has been using solution all the time. Pt is currently wearing glasses due to left eye redness. Pt was diagnosed with conjunctivitis (at Dr. Beltran's office) in November and was given Ciprofloxacin. Pt notes her conjunctivitis resolved but has returned 2 other times since November. She has used Ciprofloxacin all three times. For this current episode of left eye redness she has used Ciprofloxacin for 1 week, the last time she used it was 2 days ago. She denies STIs, vaginal discharge, vaginal bleeding. Pt was tested for STIs within the last 6 months and all were negative. She has had the same sexual partner for the past 3 years. Pt occasionally gets a sore throat due to enlarged tonsils. She went to [place] and was suggested she should get a tonsillectomy. Pt also c/o tingling in left toes and left side of head x1 week. She additionally notes tenderness in the back of her neck, left sided shoulder blade pain, left sided rib pain, mild left arm pain. Pt notes she loses balance but has one leg shorter than the other. Sometimes her pain will radiate to her chest. Pt has seen Dr. Babcock and was told it was muscular. Pt tried not to eat gluten or dairy. Pt reports she had blood work done by Dr. Babcock that suggested an autoimmune disease. This blood work was done due to rash in arm and fatigue. Lab work was done twice, the last time was 6 months ago and it didn't show progression. PMHx: scoliosis. She has not had an XR of her back in years. Pt was in physical therapy for a while but states it didn't help much. Pt is currently on control. No PMHx of environmental allergies. Allergy: Benadryl (reaction of fast heart beat). Has had several rounds of lab testing with Dr. Babcock and does not want to have more done today. - History of Current Complaint Chief Complaint: UCBackPain Stated Complaint: EYE COMPLAINT Time Seen by Provider: 03/13/17 13:33 Hx Obtained From: Patient Hx Last Menstrual Period: 03/06/17 Onset/Duration: Lasting Weeks Timing: Weeks Aggravating Factor(s): Contact Lens Alleviating Factor(s): Eye Drops - cipro Associated Signs And Symptoms: Positive: Vision Impairment Left. Negative: Fever, Swelling Related History: Diagnosed As: - conjunctivitis in November, Meds/Drops Used: - cipro - Allergies/Home Medications Allergies/Adverse Reactions: Allergies Allergy/AdvReac Type Severity Reaction Status Date / Time Diphenhydramine Allergy Hallucinati Verified 11/09/16 11:17 [From Benadryl] ons PMH/Surg Hx/FS Hx/Imm Hx - Additional Past Medical History Additional PMH: PMHx: conjunctivitis, scoliosis commonly has respiratory illness and has been advised tonsillectomy. 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 Alcohol Use: Occasionally Substance Use Type: Marijuana Substance Use Comment - Amount & Last Used: couple times per week Smoking Status (MU): Never Smoked Tobacco - Immunization History Most Recent Influenza Vaccination: No Most Recent Tetanus Shot: unknown Most Recent Pneumonia Vaccination: never Review of Systems Constitutional: Negative Skin: Negative Eyes: Drainage - left eye, Eye Redness - left, Other - change of acuity in left eye compared to right eye ENT: Sore Throat - occasionally Respiratory: Negative Cardiovascular: Negative Gastrointestinal: Negative Genitourinary: Negative Motor: Negative Neurovascular: Negative Musculoskeletal: Other: - left shoulder blade pain, left rib pain, left arm pain , neck pain Tests positive for autoimmune disease but does not know which testing was positive. Neurological: Paresthesia - left toes/foot and left side of head All Other Systems Reviewed And Are Negative: Yes Physical Exam Triage Information Reviewed: Yes Appearance: Well-Appearing, Thin Vital Signs: Initial Vital Signs Temp 99.1 F 03/13/17 12:47 Pulse 70 03/13/17 12:47 Resp 14 03/13/17 12:47 BP 119/78 03/13/17 12:47 Pulse Ox 100 03/13/17 12:47 Eyes: Positive: Other: - mild left injection without photophobia. No purulent discharge. Lids normal MANISH, normal EOM ENT: Positive: Pharynx normal - tonsils not significantly enlarged. Neck: Positive: Supple, Nontender, No Lymphadenopathy Respiratory: Positive: Lungs clear, Normal breath sounds Cardiovascular: Positive: RRR, No Murmur Abdomen Description: Positive: Nontender, No Organomegaly, Soft Musculoskeletal Exam: Other - upper thoracic scoliosis, with unequal shoulders. Musculoskeletal: Positive: Strength Intact, ROM Limited @ - left SLR limited by hamstring tightness. Neurological: Positive: Alert, Muscle Tone Normal, Other: - DTR's normal. Normal resisted strength in legs. Psychological Exam: Normal Skin Exam: Normal Eye Complaint Course/Dx - Course Course Of Treatment: Pt medications reviewed this visit. Discussed numerous symptoms. Could have allergic conjunctivitis. Patient thinks unlikely sexually related given history and recent negative STI screens. Advised opthalomology. Follow up chronic issues with Dr. Babcock. - Differential Dx/Diagnosis Provider Diagnoses: allergic conjunctivitis. scoliosos. paresthesias NYD Discharge - Discharge Plan Condition: Stable Disposition: HOME Patient Education Materials: Allergies (ED) Referrals: Alec Beltran MD [Medical Doctor] - Kim Babcock MD [Primary Care Provider] - Additional Instructions: Your recurrent eye symptoms could be allergic, or could be chronic inflammation. for the short term, I suggest a trial of loratidine 10mg once daily for possible allergies (this is not sedating), and use of ketorolac eye drops for relief of discomfort. These can be purchased over the counter, the dose is 2 drops twice daily. I suggest follow up withDr. Babcock regarding the tingling, double checking that your last thyroid and B12 checks were normal. I have given you a referral to opthalmology, and suggest [facility], for evaluation of your spine. [facility] There are several sites--gest to call them and work through who does adult scoliosis. The documentation as recorded by the Corky steen Angela accurately reflects the service I personally performed and the decisions made by me, Radha Higgins MD.
== END 2017-03-13 14:22 | disposition home or self-care (01) ==
LOC: UCEAST 12:00
DX: H10.10 Acute atopic conjunctivitis, unspecified eye (principal); Z88.8 Allergy status to other drugs, medicaments and biological substances; M41.9 Scoliosis, unspecified; R20.2 Paresthesia of skin
CPT/HCPCS: 99212; G0463

== ENCOUNTER 2017-05-10 20:38 | Emergency (ER) | payer OTHER ==
[2017-05-10] MEDS ORDERED: Ketorolac INJ* 30 MG/ML 1 ML VIAL IV PUSH ONE (23:59)
[2017-05-10] MEDS ORDERED: Ondansetron INJ* 2 MG/ML VIAL IV ONE (23:59)
--- NOTE | 2017-05-11 00:01 | ED ---
Abdominal Pain/Female - HPI Summary HPI Summary: 26 female presents to ED with complaints of umbilicus/RLQ abdominal pain that began this morning. Patient states over the past few days she has had some nausea and loss of appetite. Denies vomiting, diarrhea, fever/chills, urinary symptoms, vaginal discharge/bleeding, concern for STDs and radiation of pain. Admits to being constipated with LBM a few days ago, states this sometimes is normal for her. States pushing on the area and walking makes pain worse. Describes it as a dull ache that is sometimes sharp and shooting. Admits to having ovarian cysts in the past however states this feels differently. Denies any family history of appendicitis. Has had similar pains in the past but nothing this bad or in the RLQ. Did try taking ibuprofen earlier today however did not have any relief. Denies any other complaints. No PMHx. LMP was Apr 22. Currently takes OCP. Is sexually active with same partner for years. - History of Current Complaint Chief Complaint: EDAbdPain Stated Complaint: ABDOMINAL PAIN Time Seen by Provider: 05/10/17 23:34 Hx Obtained From: Patient Hx Last Menstrual Period: 03/06/17 Onset/Duration: Sudden Onset, Lasting Hours, Still Present Timing: Constant Severity Initially: Mild Severity Currently: Moderate Pain Intensity: 7 Pain Scale Used: 0-10 Numeric Location: Discrete At: RLQ, Umbilical Radiates: No Character: Sharp, Dull Aggravating Factor(s): Other: - pushing on it, walking Alleviating Factor(s): Nothing Associated Signs and Symptoms: Positive: Constipation, Nausea. Negative: Fever , Urinary Symptoms, Vaginal Bleeding Allergies/Adverse Reactions: Allergies Allergy/AdvReac Type Severity Reaction Status Date / Time Diphenhydramine Allergy Hallucinati Verified 04/15/17 15:06 [From Benadryl] ons PMH/Surg Hx/FS Hx/Imm Hx Endocrine/Hematology History: Denies: Hx Diabetes, Hx Thyroid Disease Cardiovascular History: Reports: Other Cardiovascular Problems/Disorders - SVT Denies: Hx Congestive Heart Failure, Hx Hypertension, Hx Pacemaker/ICD Respiratory History: Denies: Hx Asthma, Hx Chronic Obstructive Pulmonary Disease (COPD) GI History: Denies: Hx Ulcer History: Denies: Hx Dialysis, Hx Renal Disease Musculoskeletal History: Reports: Hx Scoliosis Sensory History: Reports: Hx Contacts or Glasses Denies: Hx Hearing Aid Opthamlomology History: Reports: Hx Contacts or Glasses Psychiatric History: Denies: Hx Panic Disorder - Surgical History Surgery Procedure, Year, and Place: tubes in ears - childhood; - Immunization History Immunizations Up to Date: Yes Infectious Disease History: No Infectious Disease History: Denies: Hx Clostridium Difficile, Hx Hepatitis, Hx Human Immunodeficiency Virus (HIV), Hx of Known/Suspected MRSA, Hx Shingles, Hx Tuberculosis, Hx Known/ Suspected VRE, Hx Known/Suspected VRSA, History Other Infectious Disease, Traveled Outside the [place] in Last 30 Days - Family History Known Family History: Positive: None, Cardiac Disease - maternal grandfather, Diabetes - maternal grandfather, Blood Disorder - Anemia, Other - A Fib, murmur mother B12 deficient , possibly secondary to vegan diet Negative: Hypertension Family History: Both parents are living and healthy - Social History Alcohol Use: Occasionally Hx Substance Use: No Substance Use Type: Reports: Marijuana Substance Use Comment - Amount & Last Used: couple times per week Hx Tobacco Use: No Smoking Status (MU): Never Smoked Tobacco Review of Systems Constitutional: Negative Cardiovascular: Negative Respiratory: Negative Positive: Abdominal Pain, Nausea All Other Systems Reviewed And Are Negative: Yes Physical Exam Triage Information Reviewed: Yes Vital Signs On Initial Exam: Initial Vitals Temp Pulse Resp BP Pulse Ox 98.3 F 88 20 133/85 100 05/10/17 20:41 05/10/17 20:41 05/10/17 20:41 05/10/17 20:41 05/10/17 20:41 Vital Signs Reviewed: Yes Appearance: Positive: Well-Appearing, Well-Nourished, Pain Distress - mild Skin: Positive: Warm, Skin Color Reflects Adequate Perfusion, Dry. Negative: Cold, Cyanosis @, Jaundiced, Pale, Erythema @ Head/Face: Positive: Normal Head/Face Inspection Eyes: Positive: Conjunctiva Clear ENT: Positive: Hearing grossly normal, Pharynx normal Neck: Positive: Supple, Nontender Respiratory/Lung Sounds: Positive: Clear to Auscultation, Breath Sounds Present. Negative: Rales, Rhonchi, Wheezes Cardiovascular: Positive: Normal, RRR, Pulses are Symmetrical in both Upper and Lower Extremities. Negative: Murmur, Rub Abdomen Description: Positive: No Organomegaly, Soft, Guarding, McBurney's Point Tenderness, Other: - tender on palpation of RLQ and umbilical region. positive rebound. negative rovsings, psoas and murphys.. Negative: Bruit, CVA Tenderness (R), CVA Tenderness (L), Distended Bowel Sounds: Positive: Present Pelvic Exam: Positive: external exam normal, speculum exam normal, bimanual exam normal, no cerv. motion tender, no masses. Negative: active bleeding, blood, cervicitis, discharge, tender adnexa, tender uterus Musculoskeletal: Positive: Normal, Strength/ROM Intact Neurological: Positive: Normal, Sensory/Motor Intact, Alert, Oriented to Person Place, Time Diagnostics - Vital Signs Vital Signs Temp Pulse Resp BP Pulse Ox 05/10/17 20:41 98.3 F 88 20 133/85 100 - Laboratory Result Diagrams: 05/11/17 00:45 05/11/17 00:45 Lab Statement: Any lab studies that have been ordered have been reviewed, and results considered in the medical decision making process. Abdominal Pain Fem Course/Dx - Course Course Of Treatment: labs otained. negative HCG. given fluids, toradol and zofran, had relief. CT abd/pelvis obtained to rule out ovarian cysts, appey and other etiology due to patient PE findings and symptoms, also no US available. Normal vitals. Did have RLQ tenderness with + rebound tenderness. Vaginal cultures obtained, pending results however normal pelvic exam. Unremarkable urinalysis and labs. patient was signed out to Dr Salmon pending CT results at shift change. - Diagnoses Differential Diagnosis: Positive: Appendicitis, Constipation, Diverticulitis, Ovarian Cyst, Pelvic Inflammatory Disease Provider Diagnoses: RLQ abdominal pain Discharge - Discharge Plan Condition: Stable Disposition: OTHER Discharge Disposition Comment: signed out to Dr Salmon at shift change pending CT results Forms: *Work Release Referrals: Kim Babcock MD [Primary Care Provider] -
[2017-05-11 00:51] LABS: Urine Bilirubin Negative (Negative); Urine Glucose Negative (Negative); Urine Nitrite Negative (Negative)
[2017-05-11 00:59] LABS: Hematocrit 39 % (35-47); Hemoglobin 13.6 g/dl (12.0-16.0); Mean Corpuscular HGB Conc 35 g/dl (31-36); Mean Corpuscular Hemoglobin 32 pg (27-31); Mean Corpuscular Volume 92 fL (80-97); Mean Platelet Volume 8 um3 (7.4-10.4); Red Blood Count 4.26 10^6/ul (4.0-5.4); Red Cell Distribution Width 13 % (10.5-15); White Blood Count 5.9 10^3/ul (3.5-10.8)
[2017-05-11 01:14] LABS: Anion Gap 8 mmol/L (2-11); BUN/Creatinine Ratio 17.5 (8-20); Blood Urea Nitrogen 17 mg/dL (6-24); CO2 Carbon Dioxide 25 mmol/L (22-32); Chloride 104 mmol/L (101-111); EGFR Non-African American 69.4 (>60); Glucose 74 mg/dL (70-100); Potassium 3.4 mmol/L (3.5-5.0); Sodium 137 mmol/L (133-145)
[2017-05-11 01:15] LABS: ALT 10 U/L (7-52); AST 17 U/L (13-39); Albumin 4.2 g/dL (3.2-5.2); Alkaline Phosphatase 27 U/L (34-104); C Reactive Protein < 1.00 mg/L (< 5.00); Calcium 9.5 mg/dL (8.6-10.3); EGFR African American 89.3 (>60); Globulin 2.7 g/dL (2-4); Lipase 10 U/L (11.0-82.0); Total Protein 6.9 g/dL (6.4-8.9)
[2017-05-11] MEDS ORDERED: Iohexol 300* (CONTRAST) 10 ML SDV IV ONE (03:06)
[2017-05-11 04:40] VITALS: BP 112/78
[2017-05-11 07:13] LABS: Trichomonas Source Endocervical (Negative)
--- NOTE | 2017-05-11 08:36 | RAD ---
CLINICAL HISTORY: Right lower quadrant pain with nausea. COMPARISON: Most recent CT examination is dated June 27, 2016 TECHNIQUE: Contrast enhanced CT examination of the abdomen and pelvis from the lung bases through the initial tuberosities. The patient received 85 mL Omnipaque 300 intravenously prior to imaging.The patient received oral contrast as well prior to imaging. FINDINGS: VISUALIZED LUNG BASES: The visualized lung bases are grossly clear. There is no pleural effusion. ABDOMEN AND PELVIS: The liver, spleen, pancreas and adrenal glands are grossly normal in appearance. The gallbladder is normal. The kidneys are normal in appearance without focal mass, calcification or signs of hydronephrosis. The oral contrast as progressed as far as the splenic flexure. The small and large bowel are not distended. The patient's normal appendix is identified in the right lower quadrant with gas and stool in the lumen measuring 4 mm in diameter (axial image 55). There is no gross retroperitoneal or mesenteric lymphadenopathy. The pelvic viscera is normal in appearance. The abdominal aorta and iliac arteries are normal in course and diameter. There are no sinister bone lesions. IMPRESSION: Normal CT examination.
== END 2017-05-11 04:39 | disposition home or self-care (01) ==
LOC: ED 20:38
DX: R10.31 Right lower quadrant pain (principal); K59.00 Constipation, unspecified
CPT/HCPCS: 36415; 74177; 80053; 81003; 83605; 83690; 84702; 85025; 86140; 87480; 87491; 87510; 87591; 87661; 99284; J1885; J2405; Q9967

== ENCOUNTER 2017-05-25 23:12 | Emergency (ER) | payer OTHER ==
[2017-05-26] MEDS ORDERED: Sulfamethox/Trimethoprim DS 800/160* TAB PO ONE (01:02)
--- NOTE | 2017-05-26 01:04 | ED ---
Skin Complaint - HPI Summary HPI Summary: 26F presents with lesion on perineum for 5 days. She states the area whalen. She denies any history of STDs or chances of STD. She denies any anal sex. She denies any diarrhea or constipation. She denies any abdominal pain. She denies any vaginal discharge. She denies any bleeding or discharge from the site. She denies any history of MRSA. She has never had this before. She denies any fever or feeling ill. She denies any spreading redness. She tried heat on the area and it hurts more. she was seen by her primary for this. - History of Current Complaint Chief Complaint: EDRashSkinAbscess Stated Complaint: RASH Hx Last Menstrual Period: 03/06/17 Pain Intensity: 7 - Additional Pertinent History Primary Care Physician: GERARDO - Allergy/Home Medications Allergies/Adverse Reactions: Allergies Allergy/AdvReac Type Severity Reaction Status Date / Time Diphenhydramine Allergy Hallucinati Verified 04/15/17 15:06 [From Benadryl] ons PMH/Surg Hx/FS Hx/Imm Hx Endocrine/Hematology History: Denies: Hx Diabetes, Hx Thyroid Disease Cardiovascular History: Reports: Other Cardiovascular Problems/Disorders - SVT Denies: Hx Congestive Heart Failure, Hx Hypertension, Hx Pacemaker/ICD Respiratory History: Denies: Hx Asthma, Hx Chronic Obstructive Pulmonary Disease (COPD) GI History: Denies: Hx Ulcer History: Denies: Hx Dialysis, Hx Renal Disease Musculoskeletal History: Reports: Hx Scoliosis Sensory History: Reports: Hx Contacts or Glasses Denies: Hx Hearing Aid Opthamlomology History: Reports: Hx Contacts or Glasses Psychiatric History: Denies: Hx Panic Disorder - Surgical History Surgery Procedure, Year, and Place: tubes in ears - childhood; Infectious Disease History: No Infectious Disease History: Denies: Hx Clostridium Difficile, Hx Hepatitis, Hx Human Immunodeficiency Virus (HIV), Hx of Known/Suspected MRSA, Hx Shingles, Hx Tuberculosis, Hx Known/ Suspected VRE, Hx Known/Suspected VRSA, History Other Infectious Disease, Traveled Outside the [place] in Last 30 Days - Family History Known Family History: Positive: None, Cardiac Disease - maternal grandfather, Diabetes - maternal grandfather, Blood Disorder - Anemia, Other - A Fib, murmur mother B12 deficient , possibly secondary to vegan diet Negative: Hypertension Family History: Both parents are living and healthy - Social History Alcohol Use: Occasionally Hx Substance Use: No Substance Use Type: Reports: Marijuana Substance Use Comment - Amount & Last Used: couple times per week Hx Tobacco Use: No Smoking Status (MU): Never Smoked Tobacco Review of Systems Negative: Fever Negative: Chest Pain Negative: Shortness Of Breath Positive: Other - lesion on perineum All Other Systems Reviewed And Are Negative: Yes Physical Exam Triage Information Reviewed: Yes Vital Signs On Initial Exam: Initial Vitals Temp Pulse Resp BP Pulse Ox 98.1 F 84 16 136/82 98 05/25/17 23:21 05/25/17 23:21 05/25/17 23:21 05/25/17 23:21 05/25/17 23:21 Vital Signs Reviewed: Yes Appearance: Positive: Well-Appearing Skin: Positive: Warm, Dry, Other - small loculated lesion between vaginal and anus that is next to anus, no erythema Head/Face: Positive: Normal Head/Face Inspection Eyes: Positive: Normal, Conjunctiva Clear Respiratory/Lung Sounds: Positive: Clear to Auscultation, Breath Sounds Present Cardiovascular: Positive: Normal, RRR Musculoskeletal: Positive: Normal Neurological: Positive: Normal Psychiatric: Positive: Normal - Ryan Coma Scale Coma Scale Total: 15 Diagnostics - Vital Signs Vital Signs Temp Pulse Resp BP Pulse Ox 05/25/17 23:21 98.1 F 84 16 136/82 98 - Laboratory Lab Statement: Any lab studies that have been ordered have been reviewed, and results considered in the medical decision making process. Course/Dx - Course Course Of Treatment: 26F presents with lesion on perineum for 5 days. She states the area whalen. She denies any history of STDs or chances of STD. She denies any anal sex. She denies any diarrhea or constipation. She denies any abdominal pain. She denies any vaginal discharge. She denies any bleeding or discharge from the site. She denies any history of MRSA. She has never had this before. She denies any fever or feeling ill. She denies any spreading redness. She tried heat on the area and it hurts more. she was seen by her primary for this. on exam has lesion on anterior portion of anus towards the vagina. area is tender. no erythema. area on palipation feels like loculated abscess. will place on antibiotics and follow up with surgery if does not improve on antibiotics as is too early to drain at this point. warned of signs to return to ED. patient understand and agrees with plan. - Differential Diagnoses - Skin Complaint Differential Diagnoses: Abscess, Cellulitis, Contact Dermatitis - Diagnoses Provider Diagnoses: Abscess of perineum Discharge - Discharge Plan Condition: Good Disposition: HOME Prescriptions: Benzocaine (Topical) [Anacaine] 10 % TOPICAL TID #1 oin Sulfamethox/Trimethoprim DS* [Bactrim DS 800/160 TAB*] 1 tab PO BID #19 tab Patient Education Materials: Abscess (ED) Referrals: Amanda Wright MD [Medical Doctor] - Kim Babcock MD [Primary Care Provider] - Additional Instructions: Believe that have early abscess there but too early to drain Continue warm soaks on area Take antibiotic twice a day for 10 days, first dose given in ED Take ibuprofen or Tylenol for pain every 6 hours Follow up with surgery if no improvement Return to ED if develop fever, area of redness spreads, or any new or worsening symptoms
[2017-05-26 02:17] VITALS: BP 153/92
== END 2017-05-26 01:50 | disposition home or self-care (01) ==
LOC: ED 23:12
DX: R21 Rash and other nonspecific skin eruption (principal); L02.215 Cutaneous abscess of perineum
CPT/HCPCS: 99282; A9270-GY

== ENCOUNTER 2017-06-15 15:38 | Emergency (ER) | payer BC, OTHER ==
[2017-06-15] MEDS ORDERED: NS 0.9% 1000 ML* 2,000 ML IV ONE (17:48)
[2017-06-15] MEDS ORDERED: Ketorolac INJ* 30 MG/ML 1 ML VIAL IV ONE (17:50)
[2017-06-15 18:23] LABS: Urine Appearance Clear; Urine Blood Negative (Negative); Urine Color Yellow; Urine Ketones Negative (Negative); Urine Protein Negative (Negative); Urine Specific Gravity 1.013 (1.010-1.030); Urine Urobilinogen Negative (Negative)
[2017-06-15 18:25] LABS: ABS Basophils 0 10^3/ul (0-0.2); ABS Eosinophils 0 10^3/ul (0-0.6); ABS Lymphocytes 1.6 10^3/ul (1.0-4.8); ABS Monocytes 0.4 10^3/ul (0-0.8); ABS Neutrophils 2.9 10^3/ul (1.5-7.7); ABS Nucleated RBC 0 10^3/ul; Eosinophil % 0.5 % (0-6); Hematocrit 41 % (35-47); Hemoglobin 14.3 g/dl (12.0-16.0); Lymphocyte % 31.9 % (25-47); Mean Corpuscular HGB Conc 35 g/dl (31-36); Mean Corpuscular Hemoglobin 32 pg (27-31); Mean Corpuscular Volume 92 fL (80-97); Mean Platelet Volume 8 um3 (7.4-10.4); Nucleated Red Blood Cells % 0.1; Platelet Count 171 10^3/ul (150-450); Red Blood Count 4.48 10^6/ul (4.0-5.4); Red Cell Distribution Width 12 % (10.5-15)
[2017-06-15 18:36] LABS: EGFR Non-African American 68.1 (>60)
--- NOTE | 2017-06-15 18:48 | RAD ---
INDICATION: Right upper quadrant pain. COMPARISON: Comparison is made with a prior CT of the abdomen and pelvis from May 11, 2017. TECHNIQUE: Multiple real-time images of the right upper quadrant were obtained. FINDINGS: No gallstones are seen. There is a 6 mm gallbladder wall polyp. No gallbladder wall thickening or pericholecystic fluid is seen. No positive sonographic were resected is present. No intra or extrahepatic ductal distention is present. The common bile duct measured 0.5 cm in diameter. The liver is normal in size without significant focal abnormality. The pancreas is partially obscured by overlying bowel gas. The right kidney is normal in size without evidence for hydronephrosis. IMPRESSION: 1. NO EVIDENCE FOR ACUTE FINDING. 2. 6 MM GALLBLADDER WALL POLYP. RECOMMEND A FOLLOW-UP RIGHT UPPER QUADRANT ULTRASOUND IN 6 MONTHS TIME TO DEMONSTRATE STABILITY.
[2017-06-15] MEDS ORDERED: Sucralfate TAB* 1 GM PO ONE (19:03)
[2017-06-15 21:09] VITALS: BP 111/71
--- NOTE | 2017-06-16 10:16 | ED ---
Souleymane Montes Julia, scribed for Po Washington MD on 06/15/17 at 1932 . Abdominal Pain/Female - HPI Summary HPI Summary: This patient is a 27 year old F presenting to [facility] with a chief complaint of RUQ abdominal pain that radiates to her R flank since this morning. Patient reports nausea, vomiting, and dehydration. Patient denies bowel changes or urinary symptoms. The patient rates the pain 8/10 in severity. Symptoms are aggravated by eating. Patients LNMP was 05/13/17. - History of Current Complaint Chief Complaint: EDAbdPain Stated Complaint: UPPER RIGHT ABD PAIN Time Seen by Provider: 06/15/17 17:16 Hx Obtained From: Patient Hx Last Menstrual Period: 05/13/17 Onset/Duration: Lasting Hours Timing: Constant Pain Intensity: 8 Pain Scale Used: 0-10 Numeric Location: Discrete At: RUQ Radiates to: Flank - R Aggravating Factor(s): Food Alleviating Factor(s): Nothing Associated Signs and Symptoms: Positive: Nausea, Vomiting Allergies/Adverse Reactions: Allergies Allergy/AdvReac Type Severity Reaction Status Date / Time Diphenhydramine Allergy Hallucinati Verified 06/15/17 15:50 [From Benadryl] ons PMH/Surg Hx/FS Hx/Imm Hx Endocrine/Hematology History: Denies: Hx Diabetes, Hx Thyroid Disease Cardiovascular History: Reports: Other Cardiovascular Problems/Disorders - SVT Denies: Hx Congestive Heart Failure, Hx Hypertension, Hx Pacemaker/ICD Respiratory History: Denies: Hx Asthma, Hx Chronic Obstructive Pulmonary Disease (COPD) GI History: Denies: Hx Ulcer History: Denies: Hx Dialysis, Hx Renal Disease Musculoskeletal History: Reports: Hx Scoliosis Sensory History: Reports: Hx Contacts or Glasses Denies: Hx Hearing Aid Opthamlomology History: Reports: Hx Contacts or Glasses Psychiatric History: Denies: Hx Panic Disorder - Surgical History Surgery Procedure, Year, and Place: tubes in ears - childhood; Infectious Disease History: No Infectious Disease History: Denies: Hx Clostridium Difficile, Hx Hepatitis, Hx Human Immunodeficiency Virus (HIV), Hx of Known/Suspected MRSA, Hx Shingles, Hx Tuberculosis, Hx Known/ Suspected VRE, Hx Known/Suspected VRSA, History Other Infectious Disease, Traveled Outside the [place] in Last 30 Days - Family History Known Family History: Positive: Cardiac Disease - maternal grandfather, Diabetes - maternal grandfather, Blood Disorder - Anemia, Other - A Fib, murmur mother B12 deficient , possibly secondary to vegan diet Negative: Hypertension Family History: Both parents are living and healthy - Social History Alcohol Use: Occasionally Hx Substance Use: Yes Substance Use Type: Reports: Marijuana Substance Use Comment - Amount & Last Used: once or twice a month Hx Tobacco Use: No Smoking Status (MU): Never Smoked Tobacco Review of Systems Gastrointestinal: Other - dehydration Positive: Abdominal Pain, Vomiting, Nausea, Other - negative - changes in BM Positive: no symptoms reported All Other Systems Reviewed And Are Negative: Yes Physical Exam - Summary Physical Exam Summary: Appearance: The patient is well-nourished in no acute distress and in no acute pain. Skin: The skin is warm and dry and skin color reflects adequate perfusion. HEENT: The head is normocephalic and atraumatic. The pupils are equal and reactive. The conjunctivae are clear and without drainage. Nares are patent and without drainage. Mouth reveals moist mucous membranes and the throat is without erythema and exudate. The external ears are intact. The ear canals are patent and without drainage. The tympanic membranes are intact. Neck: the neck is supple with full range of motion and non-tender. There are no carotid bruits. There is no neck vein distension. Respiratory: Chest is non-tender. Lungs are clear to auscultation and breath sounds are symmetrical and equal. Cardiovascular: Heart is regular rate and rhythm. There is no murmur or rub auscultated. There is no peripheral edema and pulses are symmetrical and equal. Abdomen: The abdomen is soft with RUQ and epigastric tenderness. There are normal bowel sounds heard in all four quadrants and there is no organomegaly palpated. Musculoskeletal: There is no back tenderness noted. Extremities are non-tender with full range of motion. There is good capillary refill. There is no peripheral edema or calf tenderness elicited. Neurological: Patient is alert and oriented to person, place and time. The patient has symmetrical motor strength in all four extremities. Cranial nerves are grossly intact. Deep tendon reflexes are symmetrical and equal in all four extremities. Psychiatric: The patient has an appropriate affect and does not exhibit any anxiety or depression. Vital Signs On Initial Exam: Initial Vitals Temp Pulse Resp BP Pulse Ox 98.7 F 99 16 126/80 99 06/15/17 15:47 06/15/17 15:47 06/15/17 15:47 06/15/17 15:47 06/15/17 15:47 - Ryan Coma Scale Coma Scale Total: 15 Diagnostics - Vital Signs Vital Signs Temp Pulse Resp BP Pulse Ox 06/15/17 18:12 81 93 06/15/17 15:47 98.7 F 99 16 126/80 99 - Laboratory Lab Results: Lab Results 06/15/17 Range/Units 18:00 Urine Color Yellow Urine Appearance Clear Urine pH 7.0 (5-9) Ur Specific [place] 1.013 (1.010-1.030) Urine Protein Negative (Negative) Urine Ketones Negative (Negative) Urine Blood Negative (Negative) Urine Nitrate Negative (Negative) Urine Bilirubin Negative (Negative) Urine Urobilinogen Negative (Negative) Ur Leukocyte Esterase Negative (Negative) Urine Glucose Negative (Negative) Result Diagrams: 06/15/17 18:00 06/15/17 18:00 Lab Statement: Any lab studies that have been ordered have been reviewed, and results considered in the medical decision making process. - Additional Comments Diagnostic Additional Comments: Abdominal Ultrasound reveals no acute pathology. ED Physician has reviewed this report. Abdominal Pain Fem Course/Dx - Course Course Of Treatment: Ms. Contreras presented with a several day history of epigastric and RUQ pain. Her W/U was negative. She did not improve at all with Sulcrafate. This may just be epigastric but she may need a HIDA. She is D /C'd to F/U with PMD. - Diagnoses Provider Diagnoses: Epigastric abdominal pain Discharge - Discharge Plan Condition: Stable Disposition: HOME Patient Education Materials: Epigastric Pain (ED) Referrals: Kim Babcock MD [Primary Care Provider] - Additional Instructions: Patient is instructed to call Dr. Babcock tomorrow to follow up this week. RETURN TO THE EMERGENCY DEPARTMENT FOR CHANGING OR WORSENING SYMPTOMS. The documentation as recorded by the Souleymane steen Julia accurately reflects the service I personally performed and the decisions made by me, Po Washington MD.
== END 2017-06-15 21:08 | disposition home or self-care (01) ==
LOC: ED 15:38
DX: R10.13 Epigastric pain (principal); R11.2 Nausea with vomiting, unspecified
CPT/HCPCS: 36415; 76705; 80053; 81003; 83605; 83690; 84702; 85025; 86140; 96361; 96374; 99282; A9270-GY; J1885

== ENCOUNTER 2017-06-28 19:20 | Emergency (ER) | payer BC ==
[2017-06-28] MEDS ORDERED: Al Hydrox/Mg Hydrox/Simet LIQ* 30 ML UDC PO ONE (20:52)
[2017-06-28] MEDS ORDERED: Lidocaine 2% VISCOUS* 15 ML UDC PO ONE (20:52)
[2017-06-28] MEDS ORDERED: NS 0.9% 1000 ML* 1,000 ML IV ONE ×2 (20:54→22:28)
[2017-06-28] MEDS ORDERED: Ondansetron INJ* 2 MG/ML VIAL IV ONE (20:54)
--- NOTE | 2017-06-28 21:17 | RAD ---
HISTORY: Recurrent right upper quadrant pain COMPARISONS: June 15, 2017 TECHNIQUE: Multiple transverse and longitudinal ultrasound images were obtained of the right upper quadrant of the abdomen using grayscale and color Doppler imaging. FINDINGS: LIVER: The liver is normal in shape, size, contour, and echogenicity. There are no focal parenchymal masses. There is normal hepatopedal flow of the portal vein on Doppler imaging. BILIARY TREE: There is no intrahepatic or extrahepatic biliary dilatation. The common duct measures 0.3 cm. GALLBLADDER: Again noted is a 0.6 mm polyp of the gallbladder wall. There is no cortical physis, gallbladder wall thickening, pericholecystic fluid, or sonographic Lindquist sign. PANCREAS: The head of the pancreas is unremarkable. The tail of the pancreas is not well visualized secondary to overlying bowel gas. RIGHT KIDNEY: The right kidney is normal in shape, size, contour, and echogenicity. There is no hydronephrosis or nephrolithiasis. The right kidney measures 9.9 x 5.3 x 3.8 cm. AORTA AND IVC: The aorta and IVC are unremarkable. FLUID: There are no pleural effusions. There is no free fluid within the hepatorenal recess. OTHER FINDINGS: None. IMPRESSION: STABLE GALLBLADDER WALL POLYP
[2017-06-28 21:48] LABS: ABS Basophils 0 10^3/ul (0-0.2); ABS Eosinophils 0 10^3/ul (0-0.6); ABS Lymphocytes 2.4 10^3/ul (1.0-4.8); ABS Monocytes 0.5 10^3/ul (0-0.8); ABS Neutrophils 3.5 10^3/ul (1.5-7.7); ABS Nucleated RBC 0 10^3/ul; Eosinophil % 0.6 % (0-6); Hematocrit 40 % (35-47); Hemoglobin 13.9 g/dl (12.0-16.0); Lymphocyte % 37.3 % (25-47); Mean Corpuscular HGB Conc 35 g/dl (31-36); Mean Corpuscular Hemoglobin 32 pg (27-31); Mean Corpuscular Volume 92 fL (80-97); Mean Platelet Volume 8 um3 (7.4-10.4); Nucleated Red Blood Cells % 0.1; Platelet Count 198 10^3/ul (150-450); Red Blood Count 4.36 10^6/ul (4.0-5.4); Red Cell Distribution Width 13 % (10.5-15); White Blood Count 6.4 10^3/ul (3.5-10.8)
[2017-06-28 21:58] LABS: Urine Appearance Clear; Urine Blood 2+ (Negative); Urine Color Yellow; Urine Ketones Trace (Negative); Urine Protein Negative (Negative); Urine Specific Gravity 1.013 (1.010-1.030); Urine Urobilinogen Negative (Negative)
[2017-06-28 22:01] LABS: EGFR Non-African American 66.5 (>60)
[2017-06-28] MEDS ORDERED: Ondansetron ODT TAB* 4 MG PO ONE (22:28)
[2017-06-28] MEDS ORDERED: O ndansetron ODT 4MG 2TAB PRPK 4 MG PAK PO ONE (22:58)
[2017-06-28 23:58] VITALS: BP 120/70
--- NOTE | 2017-06-29 00:17 | ED ---
Melanie Montes Emily, scribed for Bret Azevedo MD on 06/28/17 at 2048 . Abdominal Pain/Female - HPI Summary HPI Summary: This patient is a 27 year old F presenting to [facility] accompanied by family with a chief complaint of RUQ abd pain that began two and a half weeks ago. Pt reports symptoms worsening on week ago. The patient rates the pain 9/10 in severity. Symptoms aggravated by eating. Symptoms alleviated by nothing. Patient reports vomiting, nausea, diaphoresis, diarrhea, dark stool, and RLE weakness. Patient denies fever, dysuria, increased urinary frequency, and hematuria. Pt was seen at [facility] on 06/15/2017 and was diagnosed epigastric abdominal pain. - History of Current Complaint Chief Complaint: EDAbdPain Stated Complaint: ABD PAIN, N/V Hx Obtained From: Patient Hx Last Menstrual Period: 06/21/17 ?: No Onset/Duration: Sudden Onset, Lasting Weeks, Still Present, Worse Since - 1 week ago Timing: Constant Severity Initially: Severe Severity Currently: Severe Pain Intensity: 9 Pain Scale Used: 0-10 Numeric Location: Discrete At: RUQ Aggravating Factor(s): Food Alleviating Factor(s): Nothing Associated Signs and Symptoms: Positive: Other: - Positive RLE weakness, vomiting, nausea, diaphoresis, diarrhea, and dark stool. Negative fever, dysuria , increased urinary frequency, and hematuria. Allergies/Adverse Reactions: Allergies Allergy/AdvReac Type Severity Reaction Status Date / Time Diphenhydramine Allergy Hallucinati Verified 06/15/17 15:50 [From Benadryl] ons PMH/Surg Hx/FS Hx/Imm Hx Previously Healthy: No Endocrine/Hematology History: Denies: Hx Diabetes, Hx Thyroid Disease Cardiovascular History: Reports: Other Cardiovascular Problems/Disorders - SVT Denies: Hx Congestive Heart Failure, Hx Hypertension, Hx Pacemaker/ICD Respiratory History: Denies: Hx Asthma, Hx Chronic Obstructive Pulmonary Disease (COPD) GI History: Denies: Hx Ulcer History: Denies: Hx Dialysis, Hx Renal Disease Musculoskeletal History: Reports: Hx Scoliosis Sensory History: Reports: Hx Contacts or Glasses Denies: Hx Hearing Aid Opthamlomology History: Reports: Hx Contacts or Glasses Psychiatric History: Denies: Hx Panic Disorder - Surgical History Surgery Procedure, Year, and Place: tubes in ears - childhood; Infectious Disease History: No Infectious Disease History: Denies: Hx Clostridium Difficile, Hx Hepatitis, Hx Human Immunodeficiency Virus (HIV), Hx of Known/Suspected MRSA, Hx Shingles, Hx Tuberculosis, Hx Known/ Suspected VRE, Hx Known/Suspected VRSA, History Other Infectious Disease, Traveled Outside the [place] in Last 30 Days - Family History Known Family History: Positive: Cardiac Disease - maternal grandfather, Diabetes - maternal grandfather, Blood Disorder - Anemia, Other - A Fib, murmur mother B12 deficient , possibly secondary to vegan diet Negative: Hypertension Family History: Both parents are living and healthy - Social History Occupation: Employed Full-time Lives: Alone Alcohol Use: Occasionally Hx Substance Use: Yes Substance Use Type: Reports: Marijuana Substance Use Comment - Amount & Last Used: once or twice a month Hx Tobacco Use: No Smoking Status (MU): Never Smoked Tobacco Review of Systems Positive: Skin Diaphoresis. Negative: Fever, Chills Negative: Erythema Negative: Sore Throat Negative: Chest Pain Negative: Shortness Of Breath, Cough Positive: Abdominal Pain, Vomiting, Diarrhea, Nausea, Other - Positive dark stool Negative: dysuria, frequency, hematuria Negative: Myalgia, Edema Negative: Rash Neurological: Other - Positive RLE weakness. Negative dizziness All Other Systems Reviewed And Are Negative: Yes Physical Exam - Summary Physical Exam Summary: Constitutional: Well-developed, Well-nourished, Alert. (-) Distressed Skin: Warm, Dry HENT: Normocephalic; Atraumatic Eyes: Conjunctiva normal Neck: Musculoskeletal ROM normal neck. (-) JVD, (-) Stridor, (-) Tracheal deviation Cardio: Rhythm regular, rate normal, Heart sounds normal; Intact distal pulses; The pedal pulses are 2+ and symmetric. Radial pulses are 2+ and symmetric. (-) Murmur Pulmonary/Chest wall: Effort normal. (-) Respiratory distress, (-) Wheezes, (-) Rales Abd: Soft, (+) Mild RUQ tenderness, (-) Distension, (-) Guarding, (-) Rebound Musculoskeletal: (-) Edema Lymph: (-) Cervical adenopathy Neuro: Alert, Oriented x3 Psych: Mood and affect Normal Triage Information Reviewed: Yes Vital Signs On Initial Exam: Initial Vitals Temp Pulse Resp BP Pulse Ox 98.9 F 80 18 135/100 100 06/28/17 19:27 01/20/18 19:27 06/28/17 19:27 06/28/17 19:27 06/28/17 19:27 Vital Signs Reviewed: Yes Diagnostics - Vital Signs Vital Signs Temp Pulse Resp BP Pulse Ox 06/28/17 19:27 98.9 F 80 18 135/100 100 - Laboratory Result Diagrams: 06/28/17 21:31 06/28/17 21:31 Lab Statement: Any lab studies that have been ordered have been reviewed, and results considered in the medical decision making process. - Additional Comments Diagnostic Additional Comments: Gallbladder US reveals, per radiologist, stable gallbladder wall polyp. ED physician has reviewed this radiology report. Re-Evaluation - Re-Evaluation First Eval Re-Evaluation Time: 22:20 Change: Improved Comment: Pt reports not having a bowel movement in several days. Pt reports having tried laxatives previously. She said she trying to get insurance approval of HIDA exam. Discussed importance of fluid tolerance. Pt can be fully nourished with fluids until GI appointment. Contact GI to get appointment moved up. Pt reports that she is on a cancellation list. Discussed peptic ulcer disease versus biliary colic disease. Abdominal Pain Fem Course/Dx - Course Course Of Treatment: GALLBLADDER US NEGATIVE. WILL HAVE A HIDA SCAN AN OUTPATIENT. NON TOXIC APPEARING. TOLERATING PO - Diagnoses Provider Diagnoses: Biliary colic Discharge - Discharge Plan Condition: Stable Disposition: HOME Prescriptions: Docusate CAP* [Colace Cap*] 100 mg PO BID #60 cap Ondansetron ODT TAB* [Zofran 4 MG Odt TAB*] 4 mg PO Q8H PRN #10 tab.odt PRN Reason: Nausea/Vomiting Pantoprazole TAB (NF) [Protonix TAB (NF)] 40 mg PO DAILY #14 tab Patient Education Materials: Biliary Colic (ED) Referrals: Kim Babcock MD [Primary Care Provider] - Chris Dennis MD [Medical Doctor] - 3 Days Additional Instructions: RETURN TO THE EMERGENCY DEPARTMENT FOR NEW OR CHANGING SYMPTOMS The documentation as recorded by the Melanie steen Emily accurately reflects the service I personally performed and the decisions made by me, Bret Azevedo MD.
== END 2017-06-28 23:54 | disposition home or self-care (01) ==
LOC: ED 19:20
DX: K80.50 Calculus of bile duct without cholangitis or cholecystitis without obstruction (principal)
CPT/HCPCS: 36415; 76705; 80053; 81003; 81015; 83605; 83690; 84702; 85025; 86140; 96361; 96374; 99284; A9270-GY; J2405

== ENCOUNTER 2017-07-21 20:21 | Emergency (ER) | payer BC ==
[2017-07-21 20:54] VITALS: BP 137/79
--- NOTE | 2017-07-21 21:19 | UC ---
Throat Pain/Nasal [place] HPI - HPI Summary HPI Summary: 27 y/o female presents to the urgent care c/o sore throat and swollen tonsils since yesterday. Pain w/ swallowing is 8/10. Pt has taking Dayquill to alleviate symptoms. Pt. rodriguez Hx of recurrent Tonsillitis. Pt denies, SOB, cough, chest pain, RODRIGUEZ, abdominal pain, N/V/D - History of Current Complaint Chief Complaint: EDThroatPain Stated Complaint: SORE THROAT Time Seen by Provider: 07/21/17 21:17 Hx Obtained From: Patient Hx Last Menstrual Period: on control Onset/Duration: Gradual Onset, Lasting Days - 1 day, Still Present, Worse Since - today Severity: Moderate Pain Intensity: 8 Pain Scale Used: 0-10 Numeric Cough: None Associated Signs & Symptoms: Positive: Dysphagia. Negative: Sinus Discomfort, Nasal Discharge, Fever - Epiglottits Risk Factors Epiglottis Risk Factors: Negative - Allergies/Home Medications Allergies/Adverse Reactions: Allergies Allergy/AdvReac Type Severity Reaction Status Date / Time diphenhydramine Allergy Hallucinati Verified 07/21/17 20:54 ons PMH/Surg Hx/FS Hx/Imm Hx Previously Healthy: Yes - Pt denies PMHX - Surgical History Surgical History: Yes Surgery Procedure, Year, and Place: tubes in ears - childhood; - Family History Known Family History: Positive: None, Cardiac Disease - maternal grandfather, Diabetes - maternal grandfather, Blood Disorder - Anemia, Other - A Fib, murmur mother B12 deficient , possibly secondary to vegan diet Negative: Hypertension Family History: Both parents are living and healthy - Social History Occupation: Employed Full-time Lives: With Family Alcohol Use: Rare Substance Use Type: None Substance Use Comment - Amount & Last Used: once or twice a month Smoking Status (MU): Never Smoked Tobacco - Immunization History Most Recent Influenza Vaccination: No Most Recent Tetanus Shot: unknown Most Recent Pneumonia Vaccination: never Review of Systems Constitutional: Negative Skin: Negative Eyes: Negative ENT: Sore Throat, Other - swolen tonsils Respiratory: Negative Cardiovascular: Negative Gastrointestinal: Negative Genitourinary: Negative Motor: Negative Neurovascular: Negative Musculoskeletal: Negative Neurological: Negative Psychological: Negative Is Patient Immunocompromised?: No All Other Systems Reviewed And Are Negative: Yes Physical Exam Triage Information Reviewed: Yes Vital Signs: Initial Vital Signs Temp 98.1 F 07/21/17 20:48 Pulse 61 07/21/17 20:48 Resp 16 07/21/17 20:48 BP 137/79 07/21/17 20:48 Pulse Ox 100 07/21/17 20:48 - Additional Comments VITAL SIGNS: Reviewed. GENERAL: Patient is a well developed and nourished female who is sitting comfortable in the examining table. Patient is not in any acute respiratory distress. HEAD AND FACE: No signs of trauma. No ecchymosis, hematomas or skull depressions. No sinus tenderness. EYES: PERRLA, EOMI x 2, No injected conjunctiva, no nystagmus. No photophobia. EARS: Hearing grossly intact. Ear canals and tympanic membranes are within normal limits. MOUTH: Positive pharynx with erythema, no exudates, palatal petechiae. B/L tonsillar enlargement with no exudate. Uvula in midline. NECK: Supple, trachea is midline, Positive anterior cervical lymphadenopathy, no JVD, no carotid bruit, no c-spine tenderness, neck with full ROM. No meningeal signs, no Kernig's or brudzinskis signs. CHEST: Symmetric, no tenderness at palpation LUNGS: Clear to auscultation bilaterally. No wheezing or crackles. CVS: Regular rate and rhythm, S1 and S2 present, no murmurs or gallops appreciated. ABDOMEN: Soft, non-tender. No signs of distention. No rebound no guarding, and no masses palpated. Bowel sounds are normal. EXTREMITIES: FROM in all major joints, no edema, no cyanosis or clubbing. NEURO: Alert and oriented x 3. No acute neurological deficits. Speech is normal and follows commands. SKIN: Dry and warm Throat Pain/Nasal Course/Dx - Course Course Of Treatment: 27 y/o female presents to the urgent care c/o sore throat and swollen tonsils since yesterday. Pain w/ swallowing is 8/10. Pt has taking Dayquill to alleviate symptoms. Pt. rodriguez Hx of recurrent Tonsillitis. Pt denies, SOB, cough, chest pain, RODRIGUEZ, abdominal pain, N/V/D. Hx obtained. Pt w/ pharyngitis and tonsillitis on examination. Rapid strep ordered, result: negative. Viral pharyngitis.Pt Rx ibuprofen PO and Prednisone PO to alleviates symptoms of pain and swelling. First dose of Ibuprofen given at the clinic tonight. Pt Advised on hand washing to avoid spreading. Pt advised to rest, eat well and avoid strenuous exercise. If symptoms do not improve or worsen advised to return to the urgent care or f/u with her PCP for further evaluation and treatment. Pt understood and agreed - Differential Dx/Diagnosis Differential Diagnosis/HQI/PQRI: Laryngitis, Mononucleosis, Pharyngitis, Tonsillitis Provider Diagnoses: 1-Pharyngitis. 2-Tosillitis Discharge - Discharge Plan Condition: Stable Disposition: HOME Prescriptions: Ibuprofen TAB* [Motrin TAB* 800 MG] 800 mg PO Q6H PRN #20 tab PRN Reason: Sore Throat predniSONE TAB* [Deltasone TAB*] 20 mg PO DAILY #11 tab Patient Education Materials: Pharyngitis (ED), Tonsillitis (ED) Forms: *Work Release Referrals: Kim Babcock MD [Primary Care Provider] - 3 Days Additional Instructions: 1-Please take ibuprofen PO q6-8hrs prn as instructed after meals to alleviate pain and swelling. Take Prednisone PO as directed to decrease swelling. Increase fluid intake, eat well, rest and avoid strenuous exercise 2-If symptoms do not improve or worsen please return to the urgent care or f/u with your PCP for further evaluation and treatment.
[2017-07-21] MEDS ORDERED: Ibuprofen TAB* 400 MG PO ONE (21:29)
== END 2017-07-21 21:45 | disposition home or self-care (01) ==
LOC: UCEAST 20:21
DX: J02.9 Acute pharyngitis, unspecified (principal); J03.90 Acute tonsillitis, unspecified
CPT/HCPCS: 87651; 99212; A9270-GY; G0463

== ENCOUNTER 2017-10-20 17:53 | Emergency (ER) | payer BC ==
[2017-10-20 19:21] LABS: ABS Basophils 0 10^3/ul (0-0.2); ABS Eosinophils 0 10^3/ul (0-0.6); ABS Lymphocytes 1.2 10^3/ul (1.0-4.8); ABS Monocytes 0.6 10^3/ul (0-0.8); ABS Neutrophils 4.7 10^3/ul (1.5-7.7); ABS Nucleated RBC 0 10^3/ul; Eosinophil % 0.5 % (0-6); Hematocrit 40 % (35-47); Lymphocyte % 18.6 % (25-47); Mean Corpuscular HGB Conc 35 g/dl (31-36); Mean Corpuscular Hemoglobin 32 pg (27-31); Mean Corpuscular Volume 92 fL (80-97); Mean Platelet Volume 7.5 um3 (7.4-10.4); Nucleated Red Blood Cells % 0; Platelet Count 157 10^3/ul (150-450); Red Blood Count 4.35 10^6/ul (4.0-5.4); Red Cell Distribution Width 12 % (10.5-15); White Blood Count 6.5 10^3/ul (3.5-10.8)
[2017-10-20 19:38] LABS: EGFR Non-African American 79.2 (>60)
[2017-10-20] MEDS ORDERED: methylPREDNISolone SOD 40 MG* 1 ML VIAL IV ONE (19:45)
[2017-10-20] MEDS ORDERED: Ketorolac INJ* 30 MG/ML 1 ML VIAL IV PUSH ONE (19:45)
--- NOTE | 2017-10-20 19:53 | RAD ---
INDICATION: Short of breath COMPARISON: None TECHNIQUE: PA and lateral dual-energy views were obtained. FINDINGS: Bones/Soft Tissues: There are no acute bony findings. Cardiomediastinal: The cardiomediastinal silhouette is normal. Lungs: There are no infiltrates. Pleura: There are no pleural effusions. Other: None IMPRESSION: NO ACTIVE DISEASE.
[2017-10-20] MEDS ORDERED: NS 0.9% 1000 ML* 1,000 ML IV ONE (19:55)
--- NOTE | 2017-10-20 20:47 | ED ---
Throat Pain/Nasal Congestion - HPI Summary HPI Summary: 27-year-old female presents to shortness of breath for the past day. She states she had a tonsillectomy at [facility] on Friday. She denies any bleeding. She states the pain has gradually increased over the past day. She said been taking oxycodone for pain. She admits to occasional chest pain. She states the whole area feels swollen. She denies any known fevers. She denies any nausea vomiting. She denies any bowel pain. She denies any rash. She denies any chills or fatigue. She states she has been able to keep hydrated. She denies any palpitations. She admits to occasional cough. - History of Current Complaint Chief Complaint: EDShortnessOfBreath Time Seen by Provider: 10/20/17 19:05 - Allergies/Home Medications Allergies/Adverse Reactions: Allergies Allergy/AdvReac Type Severity Reaction Status Date / Time diphenhydramine Allergy Hallucinati Verified 10/20/17 17:56 ons Home Medications: Home Medications Amoxicillin PO (*) [Amoxicillin 400 MG/5 ML SUSP*] 10 ml PO BID 10/20/17 [ History Confirmed 10/20/17] HYDROcodone/ACET. 7.5/325 LIQ* [Lortab Elixir 7.5/325 per 15 ml *] 10 ml PO Q6H PRN 10/20/17 [History Confirmed 10/20/17] Multivitamins/Minerals TAB* [Theragran/minerals TAB*] 1 tab PO DAILY 10/20/17 [ History Confirmed 10/20/17] l-Norgest/E.estradiol-E.estrad [Ashlyna 0.15-0.03 &0.01 mg] 1 tab PO DAILY 10/20 [History Confirmed 10/20/17] PMH/Surg Hx/FS Hx/Imm Hx Endocrine/Hematology History: Denies: Hx Diabetes, Hx Thyroid Disease Cardiovascular History: Reports: Other Cardiovascular Problems/Disorders - SVT Denies: Hx Congestive Heart Failure, Hx Hypertension, Hx Pacemaker/ICD Respiratory History: Denies: Hx Asthma, Hx Chronic Obstructive Pulmonary Disease (COPD) GI History: Denies: Hx Ulcer History: Denies: Hx Dialysis, Hx Renal Disease Musculoskeletal History: Reports: Hx Scoliosis Sensory History: Reports: Hx Contacts or Glasses Denies: Hx Hearing Aid Opthamlomology History: Reports: Hx Contacts or Glasses Psychiatric History: Denies: Hx Panic Disorder - Surgical History Surgery Procedure, Year, and Place: tubes in ears - childhood; Infectious Disease History: No Infectious Disease History: Denies: Hx Clostridium Difficile, Hx Hepatitis, Hx Human Immunodeficiency Virus (HIV), Hx of Known/Suspected MRSA, Hx Shingles, Hx Tuberculosis, Hx Known/ Suspected VRE, Hx Known/Suspected VRSA, History Other Infectious Disease, Traveled Outside the [place] in Last 30 Days - Family History Known Family History: Positive: None, Cardiac Disease - maternal grandfather, Diabetes - maternal grandfather, Blood Disorder - Anemia, Other - A Fib, murmur mother B12 deficient , possibly secondary to vegan diet Negative: Hypertension Family History: Both parents are living and healthy - Social History Alcohol Use: Rare Hx Substance Use: Yes Substance Use Type: Reports: None Substance Use Comment - Amount & Last Used: once or twice a month Hx Tobacco Use: No Smoking Status (MU): Never Smoked Tobacco Review of Systems Negative: Fever Positive: Sore Throat Positive: Chest Pain Positive: Shortness Of Breath. Negative: Cough All Other Systems Reviewed And Are Negative: Yes Physical Exam Triage Information Reviewed: Yes Vital Signs On Initial Exam: Initial Vitals Temp Pulse Resp BP Pulse Ox 99.1 F 111 20 146/87 100 10/20/17 17:56 10/20/17 17:56 10/20/17 17:56 10/20/17 17:56 10/20/17 17:56 Vital Signs Reviewed: Yes Appearance: Positive: Well-Appearing Skin: Positive: Warm, Dry Head/Face: Positive: Normal Head/Face Inspection Eyes: Positive: Normal, EOMI, ESA, Conjunctiva Clear ENT: Positive: TMs normal, Other - Uvula midline, white eschar tissue present tonsils Neck: Positive: Supple, Nontender, No Lymphadenopathy Respiratory/Lung Sounds: Positive: Clear to Auscultation, Breath Sounds Present , Other - nonreproducible chest pain Cardiovascular: Positive: Normal, RRR Abdomen Description: Positive: Nontender, Soft Bowel Sounds: Positive: Present Musculoskeletal: Positive: Normal Neurological: Positive: Normal Psychiatric: Positive: Normal Diagnostics - Vital Signs Vital Signs Temp Pulse Resp BP Pulse Ox 10/20/17 19:25 121/85 10/20/17 19:00 90 13 95 10/20/17 18:58 90 10 116/69 96 10/20/17 18:56 13 10/20/17 17:56 99.1 F 111 20 146/87 100 - Laboratory Lab Results: Lab Results 10/20/17 10/20/17 10/20/17 Range/Units 19:13 19:13 19:13 WBC 6.5 (3.5-10.8) 10^3/ul RBC 4.35 (4.0-5.4) 10^6/ul Hgb 14.0 (12.0-16.0) g/dl Hct 40 (35-47) % MCV 92 (80-97) fL MCH 32 H (27-31) pg MCHC 35 (31-36) g/dl RDW 12 (10.5-15) % Plt Count 157 (150-450) 10^3/ul MPV 7.5 (7.4-10.4) um3 Neut % (Auto) 71.6 (38-83) % Lymph % (Auto) 18.6 L (25-47) % [place] % (Auto) 9.0 H (0-7) % Eos % (Auto) 0.5 (0-6) % Baso % (Auto) 0.3 (0-2) % Absolute Neuts (auto) 4.7 (1.5-7.7) 10^3/ul Absolute Lymphs (auto) 1.2 (1.0-4.8) 10^3/ul Absolute Monos (auto) 0.6 (0-0.8) 10^3/ul Absolute Eos (auto) 0 (0-0.6) 10^3/ul Absolute Basos (auto) 0 (0-0.2) 10^3/ul Absolute Nucleated RBC 0 10^3/ul Nucleated RBC % 0 D-Dimer, Quantitative < 200 (Less Than 230) ng/mL Sodium 138 L (139-145) mmol/L Potassium 3.9 (3.5-5.0) mmol/L Chloride 102 (101-111) mmol/L Carbon Dioxide 30 (22-32) mmol/L Anion Gap 6 (2-11) mmol/L BUN 9 (6-24) mg/dL Creatinine 0.86 (0.51-0.95) mg/dL Est GFR ( Amer) 101.8 (>60) Est GFR (Non-Af Amer) 79.2 (>60) BUN/Creatinine Ratio 10.5 (8-20) Glucose 93 (70-100) mg/dL Calcium 9.6 (8.6-10.3) mg/dL Total Bilirubin 0.60 (0.2-1.0) mg/dL AST 13 (13-39) U/L ALT 8 (7-52) U/L Alkaline Phosphatase 36 (34-104) U/L Troponin I 0.00 (<0.04) ng/mL C-React Prot High Sens 103.65 mg/L Total Protein 7.2 (6.4-8.9) g/dL Albumin 4.1 (3.2-5.2) g/dL Globulin 3.1 (2-4) g/dL Albumin/Globulin Ratio 1.3 (1-3) TSH 0.64 (0.34-5.60) mcIU/mL Beta HCG, Quant < 0.60 mIU/mL Result Diagrams: 10/20/17 19:13 10/20/17 19:13 Lab Statement: Any lab studies that have been ordered have been reviewed, and results considered in the medical decision making process. - Radiology chest Xray Interpretation: No Acute Changes Radiology Interpretation Completed By: Radiologist - EKG No standard instances Cardiac Rate: NL EKG Rhythm: Sinus Rhythm EKG Interpretation: sinus rhythm EENT Course/Dx - Course Course Of Treatment: 27-year-old female presents to shortness of breath for the past day. She states she had a tonsillectomy at [facility] on Friday. She denies any bleeding. She states the pain has gradually increased over the past day. She said been taking oxycodone for pain. She admits to occasional chest pain. She states the whole area feels swollen. She denies any known fevers. She denies any nausea vomiting. She denies any bowel pain. She denies any rash. She denies any chills or fatigue. She states she has been able to keep hydrated. She denies any palpitations. She admits to occasional cough. On exam uvula is midline. We'll any eschar tissue present on the tonsils. No active bleeding noted. Lungs clear to auscultation. No acute respiratory distress. Heart regular rhythm. EKG normal. Chest x-ray normal. Labs within normal limits. D-dimer negative. Gave prednisone and feeling a little bit better. We'll prescribe Decadron. We'll have follow-up with ENT. Patient understands agrees with plan. - Differential Diagnoses Differential Diagnoses: Other - bleeding tonsil, abscess, PE - Diagnoses Provider Diagnoses: Shortness of breath, Post-tonsillectomy pain Discharge - Sign-Out/Discharge Documenting (check all that apply): Discharge/Admit/Transfer - Discharge Plan Condition: Good Disposition: HOME Prescriptions: Dexamethasone Oral Solution* [Decadron Oral Solution*] 4 mg PO DAILY #1 bottle Patient Education Materials: Tonsillectomy (DC) Referrals: Kim Babcock MD [Primary Care Provider] - Additional Instructions: Continue soft diet as told by doctor Avoid strenuous activity Ask ENT when able to start ibuprofen Take decadron 4ml daily for 4 days Follow up with ENT Return to ED if develop any new or worsening symptoms - Billing Disposition and Condition Condition: GOOD Disposition: HOME
[2017-10-20 21:31] VITALS: BP 115/65
== END 2017-10-20 21:56 | disposition home or self-care (01) ==
LOC: ED 17:53
DX: R06.02 Shortness of breath (principal); G89.18 Other acute postprocedural pain
CPT/HCPCS: 36415; 71046; 80053; 84443; 84484; 84702; 85025; 85379; 86141; 93005; 96361; 96374; 96375; 99283; J1885; J2920

== ENCOUNTER 2017-11-22 20:15 | Emergency (ER) | payer SELFPAY ==
[2017-11-22 23:52] VITALS: BP 127/84
--- NOTE | 2017-11-23 08:00 | RAD ---
HISTORY: vaginal discharge/endometrial biopsy COMPARISONS: None relevant available at the time of dictation. TECHNIQUE: Multiple transverse and longitudinal ultrasound images were obtained of the pelvis using grayscale and color Doppler imaging using the endovaginal transducer. FINDINGS: UTERUS: The uterus measures 8.3 x 3.6 x 4.9 cm. The uterus is normal in shape, size, contour, and echotexture. ENDOMETRIUM: The endometrial stripe is smooth. The endometrium measures 0.5 cm in thickness. There is simple fluid noted within the endometrial and endocervical canal. CUL-DE-SAC: There is no free fluid within the cul-de-sac. RIGHT OVARY: The right ovary measures 1.9 x 1.2 x 2.8 cm. Normal arterial and venous waveforms are identifiable within the ovary on spectral Doppler imaging. LEFT OVARY: The left ovary measures 3.5 x 2.7 x 2.4 cm. Normal arterial and venous waveforms are identifiable within the ovary on spectral Doppler imaging. There is a 1.8 cm follicular cyst. BLADDER: The bladder is not well visualized. OTHER: None IMPRESSION: SMALL AMOUNT OF SIMPLE FLUID WITHIN THE ENDOMETRIAL AND ENDOCERVICAL CANAL.
--- NOTE | 2017-12-09 11:18 | ED ---
Mayra Montes Gabriel, scribed for Zbigniew Boyd MD on 11/22/17 at 2149 . GI/ HPI - HPI Summary HPI Summary: This patient is a 27 year old F presenting to [facility] c/o one episode where she discharged vaginal tissue that occurred earlier today. The patient rates the pain 0/10 in severity. Pt had endometrial biopsy on the 11 of this month secondary to abnormal vaginal bleeding. She has not bleed since she passed the tissue earlier today. Patient denies pain and abnormal bleeding currently. - History of Current Complaint Chief Complaint: EDGeneral Time Seen by Provider: 11/22/17 21:33 Stated Complaint: GENERAL ILLNESS Hx Obtained From: Patient Hx Last Menstrual Period: on control Onset/Duration: Still Present Timing: Constant Severity: Moderate Current Severity: None Vaginal Bleeding Description: Clots Pain Intensity: 0 Location of Pain: None Associated Signs and Symptoms: Positive: Negative - pain - Additional Pertinent History Primary Care Physician: GERARDO - Allergy/Home Medications Allergies/Adverse Reactions: Allergies Allergy/AdvReac Type Severity Reaction Status Date / Time diphenhydramine Allergy Hallucinati Verified 11/22/17 20:21 ons Home Medications: Home Medications NK [No Home Medications Reported] 11/22/17 [History Confirmed 11/22/17] PMH/Surg Hx/FS Hx/Imm Hx Endocrine/Hematology History: Denies: Hx Diabetes, Hx Thyroid Disease Cardiovascular History: Reports: Other Cardiovascular Problems/Disorders - SVT Denies: Hx Congestive Heart Failure, Hx Hypertension, Hx Pacemaker/ICD Respiratory History: Denies: Hx Asthma, Hx Chronic Obstructive Pulmonary Disease (COPD) GI History: Denies: Hx Ulcer History: Denies: Hx Dialysis, Hx Renal Disease Musculoskeletal History: Reports: Hx Scoliosis Sensory History: Reports: Hx Contacts or Glasses Denies: Hx Hearing Aid Opthamlomology History: Reports: Hx Contacts or Glasses Psychiatric History: Denies: Hx Panic Disorder - Surgical History Surgery Procedure, Year, and Place: tubes in ears - childhood; Infectious Disease History: No Infectious Disease History: Denies: Hx Clostridium Difficile, Hx Hepatitis, Hx Human Immunodeficiency Virus (HIV), Hx of Known/Suspected MRSA, Hx Shingles, Hx Tuberculosis, Hx Known/ Suspected VRE, Hx Known/Suspected VRSA, History Other Infectious Disease, Traveled Outside the [place] in Last 30 Days - Family History Known Family History: Positive: Cardiac Disease - maternal grandfather, Diabetes - maternal grandfather, Blood Disorder - Anemia, Other - A Fib, murmur mother B12 deficient , possibly secondary to vegan diet Negative: Hypertension Family History: Both parents are living and healthy - Social History Alcohol Use: Rare Hx Substance Use: Yes Substance Use Type: Reports: None Substance Use Comment - Amount & Last Used: once or twice a month Hx Tobacco Use: No Smoking Status (MU): Never Smoked Tobacco Review of Systems Positive: discharge Musculoskeletal: Negative - pain All Other Systems Reviewed And Are Negative: Yes Physical Exam - Summary Physical Exam Summary: Appearance: Well-appearing, no distress, Well-nourished Skin: Warm, color reflects adequate perfusion Head: Normal Head/Face inspection Eyes: Conjunctiva clear ENT: Normal inspection Neck: Supple, no nodes, no JVD. Respiratory: Lungs clear, Normal breath sounds, no respiratory distress Cardio: RRR, No murmur, pulses normal, brisk capillary refill Abdomen: soft, nontender, no guarding, no rebound Bowel sounds: present Musculoskeletal: Strength Intact/ ROM intact. No calf tenderness. No edema. Neuro: Alert, muscle tone normal, facial symmetry, speech normal, sensory/motor intact Psychological: Normal Triage Information Reviewed: Yes Vital Signs On Initial Exam: Initial Vitals Temp Pulse Resp BP Pulse Ox 98.7 F 81 14 131/81 100 11/22/17 20:17 11/22/17 20:17 11/22/17 20:17 11/22/17 20:17 11/22/17 20:17 Vital Signs Reviewed: Yes Diagnostics - Vital Signs Vital Signs Temp Pulse Resp BP Pulse Ox 11/22/17 20:17 98.7 F 81 14 131/81 100 - Laboratory Lab Statement: Any lab studies that have been ordered have been reviewed, and results considered in the medical decision making process. - Additional Comments Diagnostic Additional Comments: Pelvic US reveals, per radiologist, There is some fluid in the endometrial canal. This could the result of endometrial biopsy. There is also some free fluid in the endocervical canal. Endometrial thickness is 4.6mm. normal right ovary with positive doppler blood flow. Normal left ovary with 1.9cm dominant follicular cyst, Positive doppler flow to the left ovary ED physician has reviewed this radiology report. Re-Evaluation - Re-Evaluation First Eval Re-Evaluation Time: 23:42 Change: Improved Comment: pt with abnormal bleeding or abdominal discomfort in the ED. Plan for f /u with her PCP for further evaluation and treatment. GIGU Course/Dx - Diagnoses Provider Diagnoses: Abnormal vaginal fluids Discharge - Sign-Out/Discharge Documenting (check all that apply): Discharge/Admit/Transfer - Discharge Plan Condition: Improved Disposition: HOME Patient Education Materials: Endometrial Biopsy (DC) Referrals: Kim Babcock MD [Primary Care Provider] - As Soon As Possible - Billing Disposition and Condition Condition: IMPROVED Disposition: Home The documentation as recorded by the Mayra steen Gabriel accurately reflects the service I personally performed and the decisions made by , Zbigniew Boyd MD.
== END 2017-11-22 23:51 | disposition home or self-care (01) ==
LOC: ED 20:15
DX: N89.8 Other specified noninflammatory disorders of vagina (principal); Z98.890 Other specified postprocedural states; I47.1 Supraventricular tachycardia
CPT/HCPCS: 76830; 99282

== ENCOUNTER 2018-01-11 10:51 | Emergency (ER) | payer BC ==
[2018-01-11 12:19] VITALS: BP 116/78
--- NOTE | 2018-01-11 13:02 | UC ---
Knee Pain HPI - HPI Summary HPI Summary: she was putting on her pants 2 weeks ago and tripped over on the carpeted floor of her house, possibly falling forward but does not recall exactly. She dismissed it initially but pain has been increasing and she has occasionally taken ibuprofen at work once or twice, now it bothers her to walk. LMD now - History of Current Complaint Chief Complaint: UCLowerExtremity Stated Complaint: KNEE INJURY Time Seen by Provider: 01/11/18 12:29 Hx Obtained From: Patient Hx Last Menstrual Period: 01/11/2018 ?: No Onset/Duration: Sudden Onset Severity Initially: Mild Severity Currently: Severe Pain Intensity: 7 Character: Dull, Aching Aggravating Factor(s): Movement, Weight Bearing Alleviating Factor(s): Rest, Position, OTC Meds Associated Signs And Symptoms: Positive: Negative Able to Bear Weight: Yes - Risk Factors Septic Arthritis Risk Factor: Negative Gout Risk Factor: Negative - Allergies/Home Medications Allergies/Adverse Reactions: Allergies Allergy/AdvReac Type Severity Reaction Status Date / Time diphenhydramine Allergy Hallucinati Verified 11/22/17 20:21 ons PMH/Surg Hx/FS Hx/Imm Hx Previously Healthy: Yes - Surgical History Surgical History: None Surgery Procedure, Year, and Place: tubes in ears - childhood; - Family History Known Family History: Positive: None, Cardiac Disease - maternal grandfather, Diabetes - maternal grandfather, Blood Disorder - Anemia, Other - A Fib, murmur mother B12 deficient , possibly secondary to vegan diet Negative: Hypertension Family History: Both parents are living and healthy - Social History Alcohol Use: Weekly Substance Use Type: None Substance Use Comment - Amount & Last Used: once or twice a month Smoking Status (MU): Never Smoked Tobacco - Immunization History Most Recent Influenza Vaccination: No Most Recent Tetanus Shot: unknown Most Recent Pneumonia Vaccination: never Review of Systems Constitutional: Negative Musculoskeletal: Arthralgia, Myalgia All Other Systems Reviewed And Are Negative: Yes Physical Exam Triage Information Reviewed: Yes Appearance: Well-Appearing, No Pain Distress, Well-Nourished Vital Signs: Initial Vital Signs Temp 98.4 F 01/11/18 12:14 Pulse 50 01/11/18 12:14 Resp 16 01/11/18 12:14 BP 116/78 01/11/18 12:14 Pulse Ox 100 01/11/18 12:14 Vital Signs Reviewed: Yes Eyes: Positive: Conjunctiva Clear ENT: Positive: Hearing grossly normal Neck: Positive: Supple Respiratory: Positive: Chest non-tender Cardiovascular: Positive: Pulses Normal, Brisk Capillary Refill Musculoskeletal Exam: Other - tender on right patellar movilization, no effusion , valgus/varus negative, ADT/PDT negative, minimal distal edema along tibial surface, no ankle edema. Antialgic gait Knee Pain Course/Dx - Course Course Of Treatment: patellar bursitis of right knee, elevate knee, start NSAID and use knee brace as needed. F/u with PCP , increase ROM as pain is controlled , stretching exercises for hamstrings. Referral to PT - Differential Dx/Diagnosis Provider Diagnoses: patellar bursitis Discharge - Sign-Out/Discharge Documenting (check all that apply): Patient Departure - Discharge Plan Condition: Good Disposition: HOME Prescriptions: Ibuprofen TAB* [Motrin TAB* 600 MG] 600 mg PO Q6H PRN #30 tab PRN Reason: Pain Patient Education Materials: Ibuprofen (By mouth), Tendinitis (ED) Referrals: Kim Babcock MD [Primary Care Provider] - - Billing Disposition and Condition Condition: GOOD Disposition: Home
== END 2018-01-11 13:04 | disposition home or self-care (01) ==
LOC: UCEAST 10:51
DX: M70.41 Prepatellar bursitis, right knee (principal); Y93.9 Activity, unspecified; Z88.8 Allergy status to other drugs, medicaments and biological substances
CPT/HCPCS: 99213; G0463

== ENCOUNTER 2018-03-19 16:33 | Emergency (ER) | payer BC ==
[2018-03-19 17:44] VITALS: BP 125/84
--- NOTE | 2018-03-19 17:48 | UC ---
Skin Complaint HPI - HPI Summary HPI Summary: Pt with erythema, warmth, and mild tenderness left breast. Pt states went to PCP - given Rx Augmentin. Pt filled Rx yesterday ( I confirmed [facility] pharmacist. ) pt concerned note improved - pt leaving town tomorrow and wanted to get it checked. Pt denies fevers, chills. Pt concerned enlarged LN n left axikllary. Not No h/o CA for pt or family Never had breast exam no analgesia taken pt's medications reviewed this visit - History of Current Complaint Chief Complaint: UCSkin Time Seen by Provider: 03/19/18 17:47 Stated Complaint: BREAST COMPLAINT Hx Obtained From: Patient, Other: - pharmacist Hx Last Menstrual Period: 3 WEEKS AGO Pain Intensity: 7 - Allergy/Home Medications Allergies/Adverse Reactions: Allergies Allergy/AdvReac Type Severity Reaction Status Date / Time diphenhydramine Allergy Hallucinati Verified 03/19/18 17:43 ons Home Medications: Home Medications Amoxicillin/Clavulanate TAB* [Augmentin TAB 875*] 875 mg PO BID 03/19/18 [ History Confirmed 03/19/18] Control Pill* 1 tab PO DAILY 03/19/18 [History Confirmed 03/19/18] Review of Systems Constitutional: Negative Skin: Other - left breast All Other Systems Reviewed And Are Negative: Yes PMH/Surg Hx/FS Hx/Imm Hx Previously Healthy: Yes - Surgical History Surgical History: Yes Surgery Procedure, Year, and Place: tubes in ears - childhood, LAPAROSCOPIC SURGERY FOR ENDOMETRIOSIS, TONSILLECTOMY - Family History Known Family History: Positive: Cardiac Disease - maternal grandfather, Diabetes - maternal grandfather, Blood Disorder - Anemia, Other - A Fib, murmur mother B12 deficient , possibly secondary to vegan diet Negative: Hypertension Family History: Both parents are living and healthy - Social History Alcohol Use: Occasionally Substance Use Type: None Substance Use Comment - Amount & Last Used: once or twice a month Smoking Status (MU): Never Smoked Tobacco - Immunization History Most Recent Influenza Vaccination: No Most Recent Tetanus Shot: unknown Most Recent Pneumonia Vaccination: never Physical Exam - Summary Physical Exam Summary: Vital Signs Reviewed: Yes A+Ox3, no distress Eyes: Conjunctiva Clear, ESA. EOM intact and full ENT: Hearing grossly normal TM x 2 clear, mmoist, uvula midline, no exudate, no erythema Neck: Positive: Supple Respiratory: Positive: No respiratory distress, No accessory muscle use + CTA throughout no w/r Breast: pt with mild warmth and faint erythema upper, inner quadarant. no fluctuance, no inderation. No pain in axillla, no LA no warmth, no masses, nipple symmetric, no puckering, no discharge Cardiovascular: RRR nl s1, s2 no m/r CBT <2 sec abd soft + BS nt/nd no guarding, no distension Musculoskeletal Exam: FITZPATRICK x 4 without difficulty Strength Intact, ROM Intact Neurological: Positive: Alert, + sensation throughout Psychological: Positive: Normal Response To Family Skin: Positive: no rash, no ecchymosisa Triage Information Reviewed: Yes Vital Signs: Initial Vital Signs Temp 97.8 F 03/19/18 17:38 Pulse 75 03/19/18 17:38 Resp 16 03/19/18 17:38 BP 125/84 03/19/18 17:38 Pulse Ox 98 03/19/18 17:38 Course/Dx - Course Course Of Treatment: Pt presents for eval of left breast. Pt states was started on abx by PCP for /cellulitis. Pt concerned not improving (took 2 doses abx). Pt with mild warmth and erythema left upper, inner breast. recommend continued abx. return precautions. schedule f/u with PCP upon return from vacation 1 week. Comfrot and agreement with plan - Diagnoses Provider Diagnoses: left breast cellulitis Discharge - Sign-Out/Discharge Documenting (check all that apply): Patient Departure All imaging exams completed and their final reports reviewed: No Studies - Discharge Plan Condition: Stable Disposition: HOME Prescriptions: Fluconazole [Diflucan 150 MG (NF)] 150 mg PO ONCE PRN #1 tab PRN Reason: vaginal yeast infection Patient Education Materials: Cellulitis (ED) Referrals: Kim Babcock MD [Primary Care Provider] - Additional Instructions: - Complete antibiotics as prescribed until gone - Okay to take immodium to help with diarrhea from antibiotics - You have been given a 1 time dose for yeast infection resulting from antibiotics -take as needed - stay well hydrated - Okay to take Tylenol or ibuprofen (Motrin, Advil) as needed for discomfort - contact your doctor tomorrow to schedule a follow-up appointment for when you return. If your symptoms persist or you have other concerns you should seek medication care - Billing Disposition and Condition Condition: STABLE Disposition: Home
== END 2018-03-19 18:36 | disposition home or self-care (01) ==
LOC: UCEAST 16:33
DX: N61.0 Mastitis without abscess (principal); Z88.8 Allergy status to other drugs, medicaments and biological substances
CPT/HCPCS: 99212; G0463

== ENCOUNTER 2018-06-16 16:57 | Emergency (ER) | payer BC ==
--- NOTE | 2018-06-16 17:04 | UC ---
Abdominal Pain Female HPI - HPI Summary HPI Summary: 28 yo female presents with LUQ "spleen" pain for 1-1.5 months. She tells me that back in March 2018 she had fevers and fatigue and was eventually dx'd with mono. About 2-3 weeks after recovering from this she developed this plain. She has seen her PCP for this who told her it was stomach pain and gave her omeprazole and advised her to see a GI doctor. Pt has been taking omeprazole with no relief. Denies fever, chills, body aches, SOB, chest pain, n/v/d/c, dysuria. - History of Current Complaint Stated Complaint: ABDOMINAL PAIN Time Seen by Provider: 06/16/18 17:04 Hx Obtained From: Patient Hx Last Menstrual Period: 3 WEEKS AGO Onset/Duration: Gradual Onset Severity Initially: Mild Severity Currently: Mild Pain Intensity: 3 Pain Scale Used: 0-10 Numeric Allergies/Adverse Reactions: Allergies Allergy/AdvReac Type Severity Reaction Status Date / Time diphenhydramine Allergy Hallucinati Verified 06/16/18 17:19 ons Home Medications: Home Medications l-Norgest/E.estradiol-E.estrad [Seasonique] 1 tab PO DAILY 06/16/18 [History Confirmed 06/16/18] PMH/Surg Hx/FS Hx/Imm Hx - Additional Past Medical History Additional PMH: None - Surgical History Surgical History: Yes Surgery Procedure, Year, and Place: tubes in ears - childhood, LAPAROSCOPIC SURGERY FOR ENDOMETRIOSIS, TONSILLECTOMY - Family History Known Family History: Positive: Cardiac Disease - maternal grandfather, Diabetes - maternal grandfather, Blood Disorder - Anemia, Other - A Fib, murmur mother B12 deficient , possibly secondary to vegan diet Negative: Hypertension Family History: Both parents are living and healthy - Social History Occupation: Employed Full-time Lives: With Family Alcohol Use: Occasionally Substance Use Type: None Substance Use Comment - Amount & Last Used: once or twice a month Smoking Status (MU): Never Smoked Tobacco - Immunization History Most Recent Influenza Vaccination: No Most Recent Tetanus Shot: unknown Most Recent Pneumonia Vaccination: never Review of Systems All Other Systems Reviewed And Are Negative: Yes Constitutional: Positive: Negative Skin: Positive: Negative Respiratory: Positive: Negative Cardiovascular: Positive: Negative Gastrointestinal: Positive: Abdominal Pain Genitourinary: Positive: Negative Neurovascular: Positive: Negative Neurological: Positive: Negative Psychological: Positive: Negative Physical Exam - Summary Physical Exam Summary: GENERAL: NAD. WDWN. No pain distress. SKIN: No rashes, sores, lesions, or open wounds. NECK: Supple. Nontender. No lymphadenopathy. CHEST: CTAB. No r/r/w. No accessory muscle use. Breathing comfortably and in no distress. CV: RRR. Without m/r/g. Pulses intact. Cap refill <2seconds ABDOMEN: Mild TTP overlying spleen. No splenomegaly appreciated. No ecchymosis. Soft. No distention or guarding. No CVA tenderness. Bowel sounds present NEURO: Alert. PSYCH: Age appropriate behavior. Triage Information Reviewed: Yes Vital Signs: Vital Signs: Temp Pulse Resp BP Pulse Ox 99.2 F 77 18 125/75 97 06/16/18 17:17 06/16/18 17:17 06/16/18 17:17 06/16/18 17:17 06/16/18 17:17 Laboratory Tests 06/16/18 17:26 POC Urine Color Yellow POC Urine Clarity Clear POC Urine pH 7.0 POC Ur Specif [place] 1.010 POC Urine Protein Negative POC Ur Glucose (UA) Negative POC Urine Ketones Negative POC Urine Blood Negative POC Urine Nitrite Negative POC Urine Bilirubin Negative POC Urine Urobilinogen 0.2 POC U Leukocyte Esteras Negative Vital Signs Reviewed: Yes Abd Pain Female Course/Dx - Course Course Of Treatment: I suspect she is still having splenic pain from her previous mono. Discussed with pt and recommended she f/u with PCP for further evaluation - potential US or GI referral. Will draw for labs today and forward results to PCP. - Differential Dx/Diagnosis Provider Diagnosis: LUQ pain, Mononucleosis Discharge - Sign-Out/Discharge Documenting (check all that apply): Patient Departure All imaging exams completed and their final reports reviewed: No Studies - Discharge Plan Condition: Stable Disposition: HOME Patient Education Materials: Mononucleosis (ED) Referrals: Kim Babcock MD [Primary Care Provider] - 1 Week Additional Instructions: If you develop a fever, shortness of breath, chest pain, new or worsening symptoms - please call your PCP or go to the ED. Please schedule a follow up appointment with your Primary Doctor regarding your pain around your spleen. - Billing Disposition and Condition Condition: STABLE Disposition: Home - Attestation Statements Provider Attestation: Per institutional requirements, I have reviewed the chart, however, I was not consulted specifically or made aware of this patient by the midlevel provider. I did not personally evaluate, interact with , or disposition this patient.
[2018-06-16 17:24] VITALS: BP 125/75
[2018-06-17 10:57] LABS: ABS Basophils 0 10^3/ul (0-0.2); ABS Eosinophils 0 10^3/ul (0-0.6); ABS Lymphocytes 1.6 10^3/ul (1.0-4.8); ABS Monocytes 0.5 10^3/ul (0-0.8); ABS Neutrophils 2.2 10^3/ul (1.5-7.7); ABS Nucleated RBC 0 10^3/ul; Eosinophil % 0.8 %; Hematocrit 41 % (35-47); Lymphocyte % 36.9 %; Mean Corpuscular HGB Conc 34 g/dl (31-36); Mean Corpuscular Hemoglobin 32 pg (27-31); Mean Corpuscular Volume 93 fL (80-97); Mean Platelet Volume 8.5 fL (7.4-10.4); Nucleated Red Blood Cells % 0.1; Platelet Count 194 10^3/ul (150-450); Red Blood Count 4.43 10^6/ul (4.00-5.40); Red Cell Distribution Width 13 % (10.5-15); White Blood Count 4.4 10^3/ul (3.5-10.8)
[2018-06-17 11:00] LABS: Albumin 4.2 g/dL (3.2-5.2); Calcium 8.6 mg/dL (8.6-10.3); Potassium 3.8 mmol/L (3.5-5.0); Total Bilirubin 0.4 mg/dL (0.2-1.0)
[2018-06-17 11:06] LABS: Albumin/Globulin Ratio 1.7 (1-3); BUN/Creatinine Ratio 15.7 (8-20); EGFR Non-African American 81.9 (>60); Globulin 2.5 g/dL (2-4); Total Protein 6.7 g/dL (6.4-8.9)
--- NOTE | 2018-06-17 16:43 | UC ---
- Progress Note Progress Note: 06/17/2018 CBC:WNL, CMP WNl except alkaline phosphatase: 30 border line low. Please call back patient and inform her of blood results. Advised Pt to f/u w/ her PCP for further evaluation on her splenic pain Thank you Steffi Weller PA-C Course/Dx - Diagnoses Provider Diagnoses: LUQ pain, Mononucleosis Discharge - Sign-Out/Discharge Documenting (check all that apply): Patient Departure - d/c home All imaging exams completed and their final reports reviewed: No Studies - Discharge Plan Condition: Stable Disposition: HOME Patient Education Materials: Mononucleosis (ED) Referrals: Kim Babcock MD [Primary Care Provider] - 1 Week Additional Instructions: If you develop a fever, shortness of breath, chest pain, new or worsening symptoms - please call your PCP or go to the ED. Please schedule a follow up appointment with your Primary Doctor regarding your pain around your spleen. - Billing Disposition and Condition Condition: STABLE Disposition: Home
[2018-06-18 14:09] LABS: Cytomegalovirus IgG Antibody Negative (Negative); EBV Capsid Ag IgG Ab Positive (Negative); EBV Capsid Ag IgM Ab Positive (Negative); Epstein-Barr Nuclear Antigen Positive (Negative)
== END 2018-06-16 17:42 | disposition home or self-care (01) ==
LOC: UCEAST 16:57
DX: R10.32 Left lower quadrant pain (principal); B27.90 Infectious mononucleosis, unspecified without complication; Z88.8 Allergy status to other drugs, medicaments and biological substances
CPT/HCPCS: 36415; 80053; 81003; 85025; 86644; 86645; 86664; 86665; 99211; G0463

== ENCOUNTER 2018-07-15 17:48 | Emergency (ER) | payer BC ==
[2018-07-15 18:22] VITALS: BP 120/87
--- NOTE | 2018-07-15 20:21 | UC ---
Hand/Wrist HPI - HPI Summary HPI Summary: Patient fell on the ice today and landed on her left wrist. Has pain and swelling at the base of her thumb and wrist. - History Of Current Complaint Chief Complaint: UCUpperExtremity Stated Complaint: WRIST INJURY Time Seen by Provider: 07/15/18 19:00 Hx Obtained From: Patient Hx Last Menstrual Period: none Onset/Duration: Sudden Onset, Lasting Hours, Still Present Severity Initially: Moderate Severity Currently: Moderate Pain Intensity: 0 Pain Scale Used: 0-10 Numeric Character Of Pain: Sharp Aggravating Factor(s): Movement Alleviating Factor(s): Rest Associated Signs And Symptoms: Positive: Swelling, Bruising, Numbness/Tingling Related History: Dominant Hand Right - Allergies/Home Medications Allergies/Adverse Reactions: Allergies Allergy/AdvReac Type Severity Reaction Status Date / Time diphenhydramine Allergy Hallucinati Verified 07/15/18 18:22 ons Home Medications: Home Medications Multivit-Min/Iron Fum/Folic AC [Multi Vitamin and Mineral] 1 tab PO DAILY [History Confirmed 07/15/18] PMH/Surg Hx/FS Hx/Imm Hx - Additional Past Medical History Additional PMH: ENDOMETRIOSIS - Surgical History Surgical History: Yes Surgery Procedure, Year, and Place: tubes in ears - childhood, LAPAROSCOPIC SURGERY FOR ENDOMETRIOSIS, TONSILLECTOMY - Family History Known Family History: Positive: Cardiac Disease - maternal grandfather, Diabetes - maternal grandfather, Blood Disorder - Anemia, Other - A Fib, murmur mother B12 deficient , possibly secondary to vegan diet Negative: Hypertension Family History: Both parents are living and healthy - Social History Alcohol Use: Weekly Alcohol Amount: 3-4 Substance Use Type: Marijuana Substance Use Comment - Amount & Last Used: once or twice a month Smoking Status (MU): Never Smoked Tobacco - Immunization History Most Recent Influenza Vaccination: No Most Recent Tetanus Shot: unknown Most Recent Pneumonia Vaccination: never Review of Systems All Other Systems Reviewed And Are Negative: Yes Constitutional: Positive: Negative Skin: Positive: Bruising Respiratory: Positive: Negative Cardiovascular: Positive: Negative Gastrointestinal: Positive: Negative Musculoskeletal: Positive: Arthralgia, Decreased ROM, Edema Physical Exam Triage Information Reviewed: Yes Appearance: Well-Appearing, No Pain Distress, Well-Nourished Vital Signs: Initial Vital Signs Temp 99.3 F 07/15/18 18:16 Pulse 65 07/15/18 18:16 Resp 16 07/15/18 18:16 BP 120/87 07/15/18 18:16 Pulse Ox 100 07/15/18 18:16 Vital Signs Reviewed: Yes Eyes: Positive: Conjunctiva Clear ENT: Positive: Hearing grossly normal Neck: Positive: Supple Respiratory: Positive: No respiratory distress, No accessory muscle use Cardiovascular: Positive: Pulses Normal Abdomen Description: Positive: Soft Musculoskeletal: Positive: ROM Limited @ - LEFT WRIST AND THUMB, Edema @ - LEFT THENAR EMINENCE, Other: - TTP LEFT WRIST AND 1ST METACARPAL. NO SNUFFBOX TENDERNESS Neurological: Positive: Alert Psychological: Positive: Age Appropriate Behavior Skin: Positive: Other - BRUISING LEFT THENAR EMINENCE Diagnostics - Radiology LEFT WRIST XRAY Radiology Interpretation Completed By: ED Physician Summary of Radiographic Findings: NARROWING OF SCAPHO-LUNATE JUNCTION. NO FRACTURE Hand/Wrist Course/Dx - Course Course Of Treatment: CONCERN FOR NARROWING THE SCAPHOLUNATE JUNCTION ON X-RAY TODAY. NO CLEAR FRACTURE. RADIOLOGY READ PENDING. WILL PLACE IN THUMB SPICA SPLINT AND HAVE PATIENT CALL ORTHOPEDICS FIRST THING IN THE MORNING FOR A FOLLOW -UP APPOINTMENT. - Differential Dx/Diagnosis Provider Diagnosis: Left wrist injury Discharge - Sign-Out/Discharge Documenting (check all that apply): Patient Departure All imaging exams completed and their final reports reviewed: No - Discharge Plan Condition: Stable Disposition: HOME Patient Education Materials: Wrist Injury (ED) Referrals: Camacho Maharaj MD [Medical Doctor] - 2 Days Kim Babcock MD [Primary Care Provider] - If Needed Additional Instructions: I'M CONCERNED THERE MAY BE NARROWING BETWEEN THE BONES OF YOUR WRIST SEEN ON X- RAY TODAY. WE WILL CALL YOU TOMORROW WITH THE OFFICIAL RADIOLOGY READ. KEEP THE SPLINT ON UNTIL SEEN BY ORTHOPEDICS. CALL ORTHOPEDICS FIRST THING IN THE MORNING TO SCHEDULE A FOLLOW-UP APPOINTMENT THIS WEEK. OTC MEDS NEEDED FOR DISCOMFORT. - Billing Disposition and Condition Condition: STABLE Disposition: Home
== END 2018-07-15 19:55 | disposition home or self-care (01) ==
LOC: UCEAST 17:48
DX: S60.912A Unspecified superficial injury of left wrist, initial encounter (principal); M79.646 Pain in unspecified finger(s); Z88.8 Allergy status to other drugs, medicaments and biological substances; W19.XXXA Unspecified fall, initial encounter; Y92.9 Unspecified place or not applicable
CPT/HCPCS: 99212; G0463

== ENCOUNTER 2018-10-06 10:03 | Emergency (ER) | payer BC ==
[2018-10-06 10:58] VITALS: BP 137/83
--- NOTE | 2018-10-06 12:41 | UC ---
Throat Pain/Nasal [place] HPI - HPI Summary HPI Summary: sore throat x 2 weeks + fatigue , weakness no nasal congestion , no cough + swollen neck glands, and swelling of the left arm no fever, + chills - History of Current Complaint Chief Complaint: UCGeneralIllness Stated Complaint: MONO SYMPTOMS Time Seen by Provider: 10/06/18 10:54 Hx Obtained From: Patient Hx Last Menstrual Period: IS ON CONTINOUS BCP, DOES NOT HAVE PERIODS ?: No Onset/Duration: Gradual Onset, Lasting Weeks - 2, Still Present Severity: Moderate Pain Intensity: 2 Pain Scale Used: 0-10 Numeric Cough: None Associated Signs & Symptoms: Negative: Dysphagia, FB Sensation, Drooling, Wheezing, Hoarseness, Sinus Discomfort, Nasal Discharge, Fever, Vomiting, Rash - Allergies/Home Medications Allergies/Adverse Reactions: Allergies Allergy/AdvReac Type Severity Reaction Status Date / Time ANTIHISTAMINES Allergy Unknown ANXIETY, Uncoded 10/06/18 10:49 HEART RACES Home Medications: Home Medications Ibuprofen TAB* [Advil TAB*] 200 mg PO Q6H PRN 10/06/18 [History Confirmed ] l-Norgest/E.estradiol-E.estrad [Seasonique] 1 tab PO DAILY 10/06/18 [History Confirmed 10/06/18] PMH/Surg Hx/FS Hx/Imm Hx - Additional Past Medical History Additional PMH: MONO- TWICE ENDOMETRIOSIS - Surgical History Surgical History: Yes Surgery Procedure, Year, and Place: TONSILLECTOMY. LAPROSCOPY FOR ENDOMETREOSIS - Family History Known Family History: Negative: Diabetes - Social History Alcohol Use: Occasionally Substance Use Type: None Smoking Status (MU): Never Smoked Tobacco Review of Systems All Other Systems Reviewed And Are Negative: Yes Constitutional: Positive: Negative Skin: Positive: Negative Eyes: Positive: Negative ENT: Positive: Sore Throat Respiratory: Positive: Negative Musculoskeletal: Negative: Calf Tenderness Neurological: Positive: Weakness Is Patient Immunocompromised?: No Physical Exam Triage Information Reviewed: Yes Appearance: Well-Appearing, No Pain Distress, Well-Nourished Vital Signs: Initial Vital Signs Temp 99 F 10/06/18 10:51 Pulse 99 10/06/18 10:51 Resp 22 10/06/18 10:51 BP 137/83 10/06/18 10:51 Pulse Ox 100 10/06/18 10:51 Vital Signs Reviewed: Yes Eye Exam: Normal Eyes: Positive: Conjunctiva Clear ENT: Positive: Normal ENT inspection, Hearing grossly normal, Pharyngeal erythema, TMs normal Neck: Positive: Supple, Nontender, No Lymphadenopathy. Negative: Enlarged Nodes @ Respiratory: Positive: Chest non-tender, Lungs clear, Normal breath sounds Cardiovascular: Positive: RRR, No Murmur, Pulses Normal Musculoskeletal: Positive: Other: - left arm : + swelling / tenderness left anterior elbow ulnar side , no erythema Diagnostics - Radiology No standard instances Radiology Interpretation Completed By: Radiologist Summary of Radiographic Findings: IMPRESSION: NO LEFT UPPER EXTREMITY DEEP VEIN THROMBOSIS Throat Pain/Nasal Course/Dx - Differential Dx/Diagnosis Provider Diagnosis: Pharyngitis, Left arm swelling Discharge - Sign-Out/Discharge Documenting (check all that apply): Patient Departure All imaging exams completed and their final reports reviewed: Yes - Discharge Plan Condition: Stable Disposition: HOME Patient Education Materials: Pharyngitis (ED) Referrals: Kim Babcock MD [Primary Care Provider] - 7 Days Additional Instructions: will check for Crook call the office in one day for the results cont. with rest, increase fluid, take Ibuprofen as needed for pain - Billing Disposition and Condition Condition: STABLE Disposition: Home
[2018-10-08 14:46] LABS: EBV Capsid Ag IgG Ab Positive (Negative); EBV Capsid Ag IgM Ab Positive (Negative); Epstein-Barr Nuclear Antigen Positive (Negative)
== END 2018-10-06 12:28 | disposition home or self-care (01) ==
LOC: UCCORT 10:03 → MERGE 10:03 → UCCORT 12:28
DX: J02.9 Acute pharyngitis, unspecified (principal); M79.89 Other specified soft tissue disorders; R53.83 Other fatigue; N80.9 Endometriosis, unspecified; Z88.8 Allergy status to other drugs, medicaments and biological substances
CPT/HCPCS: 36415; 86308; 86664; 86665; 99201; G0463

== ENCOUNTER 2018-10-18 08:45 | Emergency (ER) | payer BC ==
--- OUTSIDE RECORDS SUMMARY | 2018-10-18 08:52 | XMS REPORT | Continuity of Care Document ---
:1990 External Reference #:[id number] Author Name Tessa Washington Care Team Providers Name Role Phone Kim Babcock MD Primary Care Physician Unavailable Payers Date Identification Numbers Payment Provider Subscriber Policy Number: [id number] [employer] Dacia Contreras PayID: [id number] [address] [address] [place] [address] Advance Directives Description No Information Available Problems Active Problems Provider Date Chronic tonsillitis Josemanuel Zarate M.D. Onset: 08/25/2017 Other somatoform disorders Josemanuel Zarate M.D. 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 Tobacco Use Start: Unknown Never Smoked Cigarettes Tobacco Use Start: Unknown Never Smoked Cigars Tobacco Use Start: Unknown Never Smoked A Pipe Smoking Status Reviewed: 10/07/18 Never Smoked A Pipe Smokeless Tobacco Never Used Smokeless Tobacco ETOH Use consumes 3-4 beers per week Tobacco Use Start: Unknown Patient has never smoked Recreational Drug Use Denies Drug Use Exercise Type/Frequency Exercises sporadically Allergies, Adverse Reactions, Alerts Active Allergies Reaction Severity Comments Date Diphenhydramine Hallucinations 04/01/2016 Prozac 08/25/2017 Zoloft 08/25/2017 Medications Active Medications SIG Qnty Indications Ordering Provider Date Control Unknown History Medications Multivitamin Adult 1 by mouth every Unknown - Tablets day 08/24/2017 Ashlyna 1 by mouth as Gurvinder Mcclelland MD - Unknown 0.15-0.03&0.01mg needed Tablets Triamcinolone Acetonide uses prn Beverley Hayes, - Unknown 0.1% [employer] Cream Ibuprofen 1 by mouth as Unknown - Unknown 800mg Tablets needed. Ondansetron 1 by mouth as Bret Azevedo, - Unknown 4mg Tablets Dispers needed M.D. Prednisone 2 tab by mouth 5 Unknown - 20mg Tablets days 07/19/2018 Biotin 1 tablet every Unknown - Tablets other day 07/19/2018 Benzonatate Unknown - Unknown 100mg Capsules Immunizations Description No Information Available Vital Signs Date Vital Result Comment 10/07/2018 1:15pm Heart Rate 76 /min BP Systolic 120 mmHg BP Diastolic 80 mmHg Respiratory Rate 16 /min Body Temperature 97.2 F 08/12/2018 10:21am Height 69.75 inches 5'9.75" Heart Rate 77 /min BP Systolic 122 mmHg BP Diastolic 80 mmHg Respiratory Rate 16 /min Body Temperature 98.1 F Pain Level 3 07/29/2018 10:46am Height 69.75 inches 5'9.75" Heart Rate 80 /min BP Systolic 126 mmHg BP Diastolic 78 mmHg Body Temperature 97.9 F Pain Level 6 07/20/2018 8:41am Height 69.75 inches 5'9.75" Weight 163.00 lb Heart Rate 52 /min BP Systolic 110 mmHg BP Diastolic 72 mmHg Respiratory Rate 12 /min Pain Level 6 BMI (Body Mass Index) 23.6 kg/m2 04/14/2018 9:47am Height 70 inches 5'10" Weight 150.00 lb Heart Rate 68 /min BP Systolic 122 mmHg BP Diastolic 76 mmHg Respiratory Rate 16 /min Body Temperature 97.1 F BMI (Body Mass Index) 21.5 kg/m2 08/25/2017 3:26pm Height 67.75 inches 5'7.75" Weight 155.00 lb Heart Rate 85 /min BP Systolic 122 mmHg BP Diastolic 90 mmHg Respiratory Rate 20 /min Pain Level 99 BMI (Body Mass Index) 23.7 kg/m2 04/09/2016 9:56am Height 67.50 inches 5'7.50" Weight 136.00 lb w/o shoes Heart Rate 76 /min BP Systolic 120 mmHg Ra reg cuff BP Diastolic 80 mmHg Ra reg cuff BP Systolic Sitting 120 mmHg La reg cuff BP Diastolic Sitting 82 mmHg La reg cuff BP Systolic Standing 116 mmHg La reg cuff BP Diastolic Standing 76 mmHg La reg cuff Respiratory Rate 16 /min BMI (Body Mass Index) 21.0 kg/m2 Results Description No Information Available Procedures Date Code Description Status 04/14/2016 44696 Mobile Cardiovascular Telemetry Over 24 HR Up To 30 Days Completed 04/09/2016 64278 EKG Tracing & Interpretation Completed Encounters Type Date Location Provider Dx Diagnosis Office Visit 08/12/2018 Orthopedic Evelina Davalos, M25.532 Pain in left 10:00a [facility] wrist S63.502A Unspecified sprain of left wrist, initial encounter Office Visit 07/29/2018 Orthopedic Araseli M25.532 Pain in left 10:30a [facility] Mcc[facility] wrist C.M.A. Office Visit 07/20/2018 Orthopedic Araseli M25.532 Pain in left 8:30a [facility] wrist C.M.A. Office Visit 04/14/2018 Surgical Laurie Brumfield MD N64.59 Other signs and 9:45a [facility] in Assistant Research Scientist breast Office Visit 08/25/2017 [facility] J35.01 Chronic 3:15p C.M.A. AT [facility] Zarate tonsillitis [place] F45.8 Other somatoform disorders Office Visit 04/09/2016 10:40a [facility] Carols Sterling, R00.2 Palpitations Of Assistant Research Scientist DO FACC R42 Dizziness and giddiness Office Visit 02/07/2015 [facility] 530.81 Esophageal 9:07a Assoc,pc Julisa, MALA Reflux Hospital[facility] 780.4 Dizziness & Giddiness 789.00 Pain Abdominal Unspec Site 787.02 Nausea Alone Office Visit 02/06/2015 2:57p [facility] 789.00 Pain Abdominal Assoc,pc EDDIE Batista Unspec Site Hospitalists 288.60 Leukocytosis, Unspecified 287.5 Thrombocytopenia Unspec 784.2 Swelling In Head & Neck Office Visit 02/06/2015 9:06a [facility] 789.00 Pain Abdominal Assoc,juliane Egan, MALA Unspec Site Hospitalists 530.81 Esophageal Reflux 787.02 Nausea Alone 780.4 Dizziness & Giddiness Plan of Treatment 10/07/2018 - Laurie Brumfield MDN63.20 Unspecified lump in the left breast, unspecified quadrantFollow up:Please obtain left breast ultrasound. I will call you with the results of the ultrasound. If necessary I will ask you to come back to the office for further discussion. Otherwise she should continueyour self breast exams and return to the office for any new symptoms or findings. In order to help reduce your breast pain you can try warm compresses , ibuprofen or Tylenol, reducing caffeine intake or trying Brutus oil or vitamin E tablets.
[2018-10-18 08:54] VITALS: BP 118/76
--- NOTE | 2018-10-18 09:27 | UC ---
Throat Pain/Nasal [place] HPI - HPI Summary HPI Summary: Sore throat for 2 days. - History of Current Complaint Chief Complaint: UCGeneralIllness Stated Complaint: SORE THROAT Time Seen by Provider: 10/18/18 09:03 Hx Obtained From: Patient Hx Last Menstrual Period: none ?: No Onset/Duration: Gradual Onset Severity: Moderate Pain Intensity: 9 Cough: None Associated Signs & Symptoms: Positive: Negative - Epiglottits Risk Factors Epiglottis Risk Factors: Negative - Allergies/Home Medications Allergies/Adverse Reactions: Allergies Allergy/AdvReac Type Severity Reaction Status Date / Time diphenhydramine Allergy Hallucinati Verified 10/18/18 08:54 ons ANTIHISTAMINES Allergy Unknown ANXIETY, Uncoded 10/18/18 08:54 HEART RACES Home Medications: Home Medications Magnesium Oxide [Magnesium] 250 mg PO DAILY WITH MEAL 10/18/18 [History Confirmed 10/18/18] PMH/Surg Hx/FS Hx/Imm Hx Previously Healthy: Yes - Surgical History Surgical History: Yes Surgery Procedure, Year, and Place: tubes in ears - childhood, LAPAROSCOPIC SURGERY FOR ENDOMETRIOSIS, TONSILLECTOMY - Family History Known Family History: Positive: Cardiac Disease - maternal grandfather, Diabetes - maternal grandfather, Blood Disorder - Anemia, Other - A Fib, murmur mother B12 deficient , possibly secondary to vegan diet Negative: Hypertension Family History: Both parents are living and healthy - Social History Alcohol Use: Occasionally Alcohol Amount: 3-4 Substance Use Type: None Substance Use Comment - Amount & Last Used: once or twice a month Smoking Status (MU): Never Smoked Tobacco - Immunization History Most Recent Influenza Vaccination: No Most Recent Tetanus Shot: unknown Most Recent Pneumonia Vaccination: never Review of Systems All Other Systems Reviewed And Are Negative: Yes ENT: Positive: Sore Throat Is Patient Immunocompromised?: No Physical Exam Triage Information Reviewed: Yes Appearance: Well-Appearing, No Pain Distress, Well-Nourished Vital Signs: Initial Vital Signs Temp 98.9 F 10/18/18 08:50 Pulse 99 10/18/18 08:50 Resp 18 10/18/18 08:50 BP 118/76 10/18/18 08:50 Pulse Ox 100 10/18/18 08:50 Vital Signs Reviewed: Yes Eye Exam: Normal ENT: Positive: Pharyngeal erythema - Minimal erythema uvula and posterior pharynx., TMs normal, Uvula midline. Negative: Muffled voice, Hoarse voice Neck: Positive: Supple, Nontender, No Lymphadenopathy Respiratory: Positive: Lungs clear, Normal breath sounds, No respiratory distress, No accessory muscle use Cardiovascular: Positive: RRR, No Murmur, Pulses Normal, Brisk Capillary Refill Abdomen Description: Positive: Nontender, No Organomegaly, Soft Bowel Sounds: Positive: Present Throat Pain/Nasal Course/Dx - Course Course Of Treatment: Rapid strep test was negative. - Differential Dx/Diagnosis Provider Diagnosis: Pharyngitis Discharge - Sign-Out/Discharge Documenting (check all that apply): Patient Departure All imaging exams completed and their final reports reviewed: No Studies - Discharge Plan Condition: Fair Disposition: HOME Prescriptions: Magic Mouth Was-GISSELLE/MAAL/LIDO* 5 ml SWISH SPIT QID 6 Days #120 ml Patient Education Materials: Pharyngitis (ED) Forms: *Work Release Referrals: Kim Babcock MD [Primary Care Provider] - Additional Instructions: Increase fluids, rest, take Motrin 600 mg every 8 hours with food as needed for pain. Definite follow up with your primary care provider in 3 or 4 days if no improvement. - Billing Disposition and Condition Condition: FAIR Disposition: Home - Attestation Statements Provider Attestation: I was available for consult. This patient was seen by the PRERNA. The patient was not presented to, seen by, or examined by me. -Juan Daniel
== END 2018-10-18 09:29 | disposition home or self-care (01) ==
LOC: UCEAST 08:45
DX: J02.9 Acute pharyngitis, unspecified (principal); Z88.8 Allergy status to other drugs, medicaments and biological substances
CPT/HCPCS: 87651; 99212; G0463

== ENCOUNTER 2018-11-11 11:59 | Emergency (ER) | payer BC ==
--- OUTSIDE RECORDS SUMMARY | 2018-11-11 12:05 | XMS REPORT | Continuity of Care Document ---
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 Ondansetron 1 by mouth as Bret Azevedo, - Unknown 4mg Tablets Dispers needed M.D. Prednisone 2 tab by mouth 5 Unknown - 20mg Tablets days 07/19/2018 Biotin 1 tablet every Unknown - Tablets other day 07/19/2018 Benzonatate Unknown - Unknown 100mg Capsules Vital Signs Date Vital Result Comment 10/26/2018 11:30am Heart Rate 68 /min Respiratory Rate 16 /min Body Temperature 97.1 F 10/07/2018 1:15pm Heart Rate 76 /min BP [...] /min BMI (Body Mass Index) 21.0 kg/m2 Procedures Date Code Description Status 04/14/2016 23108 Mobile Cardiovascular Telemetry Over 24 HR Up To 30 Days Completed 04/09/2016 98766 EKG Tracing & Interpretation Completed Encounters Type Date Location Provider Dx Diagnosis Office Visit 10/07/2018 Surgical Laurie Brumfield MD N63.20 Unspecified lump 1:15p [facility] in the left breast, unspecified quadrant Office Visit 08/12/2018 Orthopedic Evelina Davalos M25.532 Pain in left wrist 10:00a [facility] S63.502A Unspecified sprain of left wrist, initial encounter Office Visit 07/29/2018 Orthopedic Araseli M25.532 Pain in left 10:30a [facility] wrist C.M.A. Office Visit 07/20/2018 Orthopedic Araseli M25.532 Pain in left 8:30a [facility] wrist C.M.A. Office Visit 04/14/2018 Surgical Laurie Brumfield MD N64.59 Other signs and 9:45a [facility] [place] breast Office Visit 08/25/2017 [facility] Jose[facility] Bush35.01 Chronic 3:15p C.M.A. 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 Office Visit 04/09/2016 10:40a [facility] Carlos Sterling, R00.2 Pal[facility] Of [facility] DO FACC R42 Dizziness and giddiness Office Visit 02/07/2015 [facility] Meryl 530.81 Esophageal 9:07a Assoc,pc Julisa, [facility] Hospitalists 780.4 Dizziness & Giddiness 789.00 Pain Abdominal Unspec Site 787.02 Nausea Alone Office Visit 02/06/2015 2:57p [facility] Sunni 789.00 Pain Abdominal Assoc,EDDIE Purcell Unspec Site Hospitalists 288.60 Leukocytosis, Unspecified 287.5 Thrombocytopenia Unspec 784.2 Swelling In Head & Neck Office Visit 02/06/2015 9:06a [facility] Meryl 789.00 Pain Abdominal Assoc,juliane Egan NP Unspec Site Hospitalists 530.81 Esophageal Reflux 787.02 Nausea Alone 780.4 Dizziness & Giddiness Plan of Treatment 10/07/2018 - JAIDA Freeman63.20 Unspecified lump in the left breast, unspecified [...] or Tylenol, reducing caffeine intake or trying [place] oil or vitamin E tablets.
[2018-11-11 12:43] VITALS: BP 119/79
--- NOTE | 2018-11-11 13:01 | UC ---
Lower Extremity/Ankle HPI - HPI Summary HPI Summary: 3-4 DAYS OF LEFT CALF TENDERNESS AND POSTERIOR KNEE PAIN. NO INJURY OR TRAUMA. PAIN IS WORSE AT NIGHT WHEN SHE TRIES TO GO TO SLEEP. IBUPROFEN AND ICE NOT HELPFUL. TAKES COMBINED OCPS FOR CONTRACEPTION. NO RECENT TRAVEL. NO FAMILY HISTORY OF CLOTTING DISORDER. NONSMOKER. - History of Current Complaint Chief Complaint: UCLowerExtremity Stated Complaint: LEG PAIN Time Seen by Provider: 11/11/18 12:24 Hx Obtained From: Patient Hx Last Menstrual Period: states no period with bc Onset/Duration: Gradual Onset, Lasting Days, Still Present Severity Initially: Moderate Severity Currently: Moderate Pain Intensity: 8 Pain Scale Used: 0-10 Numeric Aggravating Factor(s): Nothing Alleviating Factor(s): Rest Able to Bear Weight: Yes - Allergies/Home Medications Allergies/Adverse Reactions: Allergies Allergy/AdvReac Type Severity Reaction Status Date / Time diphenhydramine Allergy Hallucinati Verified 11/11/18 12:36 ons ANTIHISTAMINES Allergy Unknown ANXIETY, Uncoded 11/11/18 12:36 HEART RACES PMH/Surg Hx/FS Hx/Imm Hx Previously Healthy: Yes - Surgical History Surgical History: Yes Surgery Procedure, Year, and Place: tubes in ears - childhood, LAPAROSCOPIC SURGERY FOR ENDOMETRIOSIS 2018, TONSILLECTOMY 2018 - Family History Known Family History: Positive: Cardiac Disease - maternal grandfather, Diabetes - maternal grandfather, Blood Disorder - Anemia, Other - A Fib, murmur mother B12 deficient , possibly secondary to vegan diet Negative: Hypertension Family History: Both parents are living and healthy - Social History Alcohol Use: Occasionally Alcohol Amount: 3-4 Substance Use Type: Marijuana Substance Use Comment - Amount & Last Used: occasional Smoking Status (MU): Never Smoked Tobacco - Immunization History Most Recent Influenza Vaccination: No Most Recent Tetanus Shot: unknown Most Recent Pneumonia Vaccination: never Review of Systems All Other Systems Reviewed And Are Negative: Yes Constitutional: Positive: Negative Skin: Positive: Negative Respiratory: Positive: Negative Cardiovascular: Positive: Negative Gastrointestinal: Positive: Negative Musculoskeletal: Positive: Calf Tenderness - LEFT Physical Exam Triage Information Reviewed: Yes Appearance: Well-Appearing, No Pain Distress, Well-Nourished Vital Signs: Initial Vital Signs Temp 98.7 F 11/11/18 12:37 Pulse 94 11/11/18 12:37 Resp 18 11/11/18 12:37 BP 119/79 11/11/18 12:37 Pulse Ox 99 11/11/18 12:37 Vital Signs Reviewed: Yes Eyes: Positive: Conjunctiva Clear ENT: Positive: Hearing grossly normal Neck: Positive: Supple Respiratory: Positive: No respiratory distress, No accessory muscle use Cardiovascular: Positive: Pulses Normal Abdomen Description: Positive: Soft Musculoskeletal: Positive: ROM Intact, No Edema, Other: - LEFT CALF TENDERNESS. LEFT POSTERIOR KNEE TENDERNESS. ACHILLES INTACT. CALF CIRCUMFERENCE LEFT 37CM, RIGHT 36CM Neurological: Positive: Alert Psychological: Positive: Age Appropriate Behavior Skin: Negative: Rashes Diagnostics - Radiology LLE US Radiology Interpretation Completed By: Radiologist Summary of Radiographic Findings: NO EVIDENCE FOR DEEP VENOUS THROMBOSIS. Lower Extremity Course/Dx - Course Course Of Treatment: UNCLEAR ETIOLOGY OF SYMPTOMS TODAY. ULTRASOUND NEGATIVE FOR DVT. ADVISED REST , STRETCHING, HYDRATION, MASSAGE, HEAT. FOLLOW-UP PCP. TO THE ER IF SYMPTOMS WORSEN. - Differential Dx/Diagnosis Provider Diagnosis: Pain of left calf Discharge - Sign-Out/Discharge Documenting (check all that apply): Patient Departure All imaging exams completed and their final reports reviewed: Yes - Discharge Plan Condition: Stable Disposition: HOME Patient Education Materials: Leg Pain (ED) Referrals: Kim Babcock MD [Primary Care Provider] - 1 Week Additional Instructions: Leg pain, non-specific: We did not find a specific cause for your leg pain. But there's no sign of a serious problem at this time. Often the cause of the pain becomes obvious with time, or the pain simply goes away. The most common causes of unexplained leg pain are: Muscle irritation. Muscle fatigue, overuse, pressure on the muscle from sitting or lying in one position, or immune reaction to muscle tissue can cause pain. Cholesterol-lowering drugs (statins) can inflame muscles. Dehydration or mineral deficits: Low levels of potassium, salt, calcium, or magnesium can cause cramps or leg muscle pain. Diuretics (water pills) can cause this. Subtle injury. Strains or bruises that were so minor they weren't noticed can cause pain a day or two later. A "stress fracture" of a leg bone can be caused by overuse. "Bird splints" is pain in the front of the lower leg caused by overuse or hard running. Nerve pain. Leg pain can be caused by disc disease in the back (sciatica or "pinched nerve") or by damage to nerves by diabetes, alcohol abuse, smoking, or vitamin deficiency. A bruise or pressure on a nerve can cause pain. Tendonitis. Inflammation of a tendon can cause leg pain. Sometimes it's not obvious which tendon is responsible. Varicose veins and post-phlebitic syndrome. Abnormal veins sometimes cause widespread leg aching, particularly after being up on your feet all day. Arthritis. Sometimes the pain of an inflamed joint is felt through a wide area. Restless legs. This is an uncomfortable tightness that builds in the legs, making you want to move them. Sometimes it's caused by medication. Blood clots. We found no sign of blood clots during your evaluation today. Clots in tiny veins may cause pain but be non-detectable. Vascular disease. Narrowed arteries can make your muscles run short of oxygen, causing pain with walking. Other serious causes but more rare causes of leg pain include infection, tumors, and bone degeneration. Rest as much as possible. Elevate your leg while resting. Gently stretch your leg muscles four times a day. Use [id number] pain medicine like acetaminophen or ibuprofen. Gentle compression like support hose or elastic bandages might help. Warm up your leg muscles before physical activity. Carefully control any underlying health problems such as diabetes, high blood pressure, heart failure, gout, or arthritis. Eliminate alcohol and tobacco. See the doctor if you have significant changes, such as swelling, redness, fever, increasing pain, numbness, or discoloration. ULTRASOUND TODAY UNREMARKABLE. FOLLOW-UP WITH YOUR PCP IF YOUR SYMPTOMS PERSIST. GO TO THE ER WITHOUT FAIL IF YOUR SYMPTOMS WORSEN. - Billing Disposition and Condition Condition: STABLE Disposition: Home
== END 2018-11-11 14:35 | disposition home or self-care (01) ==
LOC: UCEAST 11:59
DX: M79.662 Pain in left lower leg (principal)
CPT/HCPCS: 99211; G0463

== ENCOUNTER 2019-01-20 09:22 | Emergency (ER) | payer BC ==
[2019-01-20 09:32] VITALS: BP 136/94
--- NOTE | 2019-01-20 09:49 | UC ---
Lower Extremity/Ankle HPI - HPI Summary HPI Summary: 28 yo female with the onset of left 2nd toe redness and swelling that started about 12 hours after a pedicure no trauma no fever no hx mrsa - History of Current Complaint Chief Complaint: UCLowerExtremity Stated Complaint: RED PAINFUL TOE Time Seen by Provider: 01/20/19 09:44 Hx Obtained From: Patient Hx Last Menstrual Period: states no period with bc Onset/Duration: Gradual Onset, Lasting Hours Severity Initially: Mild Severity Currently: Moderate Pain Intensity: 6 Pain Scale Used: 0-10 Numeric Aggravating Factor(s): Ambulation Alleviating Factor(s): Rest, Elevation Able to Bear Weight: Yes Feet (Multiple View): 1 - red/swollen - Allergies/Home Medications Allergies/Adverse Reactions: Allergies Allergy/AdvReac Type Severity Reaction Status Date / Time diphenhydramine Allergy Hallucinati Verified 01/20/19 09:32 ons ANTIHISTAMINES Allergy Unknown ANXIETY, Uncoded 01/20/19 09:32 HEART RACES PMH/Surg Hx/FS Hx/Imm Hx Previously Healthy: Yes - Surgical History Surgical History: Yes Surgery Procedure, Year, and Place: tubes in ears - childhood, LAPAROSCOPIC SURGERY FOR ENDOMETRIOSIS 2018, TONSILLECTOMY 2018 - Family History Known Family History: Positive: Cardiac Disease - maternal grandfather, Diabetes - maternal grandfather, Blood Disorder - Anemia, Other - A Fib, murmur mother B12 deficient , possibly secondary to vegan diet Negative: Hypertension Family History: Both parents are living and healthy - Social History Alcohol Use: Occasionally Alcohol Amount: 3-4 Substance Use Type: Marijuana Substance Use Comment - Amount & Last Used: occasional Smoking Status (MU): Never Smoked Tobacco - Immunization History Most Recent Influenza Vaccination: No Most Recent Tetanus Shot: unknown Most Recent Pneumonia Vaccination: never Review of Systems All Other Systems Reviewed And Are Negative: Yes Constitutional: Positive: Negative Skin: Positive: Negative Eyes: Positive: Negative ENT: Positive: Negative Respiratory: Positive: Negative Cardiovascular: Positive: Negative Gastrointestinal: Positive: Negative Genitourinary: Positive: Negative Motor: Positive: Negative Neurovascular: Positive: Negative Musculoskeletal: Positive: Negative Neurological: Positive: Negative Psychological: Positive: Negative Physical Exam Triage Information Reviewed: Yes Appearance: Well-Appearing, No Pain Distress, Well-Nourished Vital Signs: Initial Vital Signs Temp 98.0 F 01/20/19 09:28 Pulse 78 01/20/19 09:28 Resp 20 01/20/19 09:28 BP 136/94 01/20/19 09:28 Pulse Ox 100 01/20/19 09:28 Vital Signs Reviewed: Yes Eyes: Positive: Conjunctiva Clear ENT: Positive: Hearing grossly normal. Negative: Nasal congestion, Nasal drainage, Trismus, Muffled voice, Hoarse voice Neck: Positive: Supple, Nontender Respiratory: Positive: Lungs clear, Normal breath sounds, No respiratory distress, No accessory muscle use Cardiovascular: Positive: RRR, No Murmur Musculoskeletal: Positive: Other: - see image Neurological Exam: Normal Psychological Exam: Normal Skin Exam: Other - see image Lower Extremity Course/Dx - Differential Dx/Diagnosis Provider Diagnosis: Cellulitis of second toe, left, Elevated BP without diagnosis of hypertension Discharge - Sign-Out/Discharge Documenting (check all that apply): Patient Departure All imaging exams completed and their final reports reviewed: No Studies - Discharge Plan Condition: Stable Disposition: HOME Prescriptions: Cephalexin CAP* [Keflex CAP*] 500 mg PO QID #28 cap Patient Education Materials: Cellulitis (ED) Forms: *Work Release Referrals: Kim Babcock MD [Primary Care Provider] - 2 Weeks (recheck BP in 2-12 weeks) Additional Instructions: reheck in 2-3 days if toe not improving warm epsom salt soaks 2-4 x day until better rest elevate tylenol or advil if needed - Billing Disposition and Condition Condition: STABLE Disposition: Home
--- OUTSIDE RECORDS SUMMARY | 2019-01-20 17:53 | XMS REPORT | Summary of Care ---
:1990 Author Organization [facility] Address [address] [place] [address] Care Team Providers Name Role Phone Kim Babcock MD Primary Care Provider Reason for Visit Reason Comments Pelvic Pain discomfort after eating and intercourse. 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 BIOTIN PO Take by mouth. 0 Active albuterol HFA Take 2 Puffs by 1 Inhaler 0 04/03/2018 Active (VENTOLIN) 108 (90 inhalation EVERY Base) MCG/ACT FOUR HOURS Inhalation Aero Soln NEEDED (SOB). Levonorgest-Eth Take 1 Tab by mouth 91 Tab 3 08/19/2018 Active Estrad 91-Day DAILY. (SEASONIQUE) 0.15-0.03 &0.01 MG Oral Tab documented as of this encounter (statuses as of 01/14/2019) Active Problems Problem Noted Date Thrush of mouth and esophagus 10/12/2018 Abnormal uterine bleeding (AUB) 01/01/2018 Overview: Added automatically from request for surgery [id number] Chronic tonsillar hypertrophy 10/07/2016 Deviated nasal septum 10/07/2016 Hypertrophy, nasal, turbinate 10/07/2016 Idiopathic scoliosis 10/04/2016 Scoliosis 11/14/2010 documented as of this encounter (statuses as of 01/14/2019) Immunizations Name Administration Dates Next Due DTAP Vaccine 09/11/1994, 10/27/1991, 1990, 1990, 1990 HIB 10/27/1991, 1990, 1990, 1990 Hepatitis A Vaccine Peds 09/08/2008 Hepatitis B Vaccine 07/07/2001, 09/11/1994, 06/13/1994 Human Papillomavirus 09/08/2008, 03/06/2006 MENINGOCOCCAL CONJUGATE VACCINE 09/08/2008 MMR VACCINE 09/11/1994, 11/02/1991 Polio - Inactivated Vaccine 09/11/1994, 11/02/1991, 1990, 1990 TDAP Vaccine 03/06/2006 TETANUS & DIPHTHERIA TOXOID (OVER 7 06/06/2004 YRS) documented as of this encounter Social History Tobacco Use Types Packs/Day Years Used Date Never Smoker Smokeless Tobacco: Never Used Alcohol Use Drinks/Week oz/Week Comments Yes 2 Cans of beer 2.0 occasionally Sex Assigned at Date Recorded Not on file Job Start Date Occupation Industry Not on file Not on file Not on file Travel History Travel Start Travel End No recent travel history available. documented as of this encounter Last Filed Vital Signs Vital Sign Reading Time Taken Comments Blood Pressure 128/72 01/14/2019 4:18 PM EDT Pulse - - Temperature - - Respiratory Rate - - Oxygen Saturation - - Inhaled Oxygen Concentration - - Weight 70.6 kg (155 lb 9.6 oz) 01/14/2019 4:18 PM EDT Height 177.8 cm (5' 10") 01/14/2019 4:18 PM EDT Body Mass Index 22.33 01/14/2019 4:18 PM EDT documented in this encounter Progress Notes Octaviano Rajput MD - 01/14/2019 4:20 PM EDT PATIENT: Dacia Contreras : 1990 DATE OF SERVICE: 01/14/2019 Chief Complaint Patient presents with Pelvic Pain discomfort after eating and intercourse. last pap was 10/04/16 WNL SUBJECTIVE: OB History Para Term AB Living 0 0 0 0 0 0 SAB TAB Ectopic Multiple 0 0 0 0 LMP Dates from Last 1 Encounters: LMP: 01/10/2018 Dacia Contreras is a 28-y.o. female Seen today with vaginal bleeding and left sided pelvic pain. She has been taking continuous oral contraceptive pills for endometriosis Had 1 day of heavy break through bleeding 2 days ago which has since resolved CBC ( within normal limits) and HCG ( negative) 2 days ago For past 2 weeks has noted dull ache on left side, constant, non radiating, worse with activity No urinary symptoms, no GI symptoms, no fevers or chills Past Medical History: Diagnosis Date Acne Cardiac dysrhythmia Headache disorder Otitis media Pharyngitis Sinusitis, chronic Thrush of mouth and esophagus (HCC) 10/12/2018 Past Surgical History: Procedure Laterality Date MYRINGOTOMY WITH TUBES, BILATERAL Bilateral As a child times once DC LAP,DIAGNOSTIC ABDOMEN N/A 01/23/2018 Procedure: LAPAROSCOPY DIAGNOSTIC; Hysteroscopy; D&C; Peritoneal biopsy; Chromotubation; Surgeon: Octaviano Rajput MD; Location: [facility] MAIN OR DC REMOVE TONSILS/ADENOIDS,12+ Y/O tonsils Allergies Allergen Reactions Benadryl 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 BIOTIN PO Take by mouth. Levonorgest-Eth Estrad -Day (SEASONIQUE) 0.15-0.03 &0.01 MG Oral Tab Take 1 Tab by mouth DAILY. MULTIPLE VITAMIN PO Take 1 Tab by mouth DAILY. No current facility-administered medications for this visit. Social History Tobacco Use Smoking status: Never Smoker Smokeless tobacco: Never Used Substance Use Topics Alcohol use: Yes Alcohol/week: 2.0 standard drinks Types: 2 Cans of beer per week Comment: occasionally Social History Substance and Sexual Activity Sexual Activity Yes Partners: Male control/protection: Pill Comment: Pt now has an IUD REVIEW OF SYSTEMS: Pertinent items are noted in history of present illness. PHYSICAL EXAMINATION: VITALS: Blood pressure 128/72, height 5' 10" (1.778 m), weight 155 lb 9.6 oz ( 70.6 kg), not currently . General appearance - alert, well appearing, and in no distress Mental status - alert, oriented to person, place, and time Abdomen - possible inguinal hernia on left- tender to palpation Pelvic - VULVA: normal appearing vulva with no masses, tenderness or lesions, VAGINA: normal appearing vagina with normal color and discharge, no lesions, CERVIX: normal appearing cervix without discharge or lesions, UTERUS: uterus is normal size, shape, consistency and nontender, ADNEXA: normal adnexa in size, nontender and no masses TV sonogram today- unremarkable ASSESSMENT\\ PLAN: ICD-9-CM ICD-10-CM 1. Pelvic pain [id number] R10.2 PELVIC US NON OB TRANSVAGINAL Dacia Contreras is a 28-y.o. female with left lower quadrant pain. Pelvic exam and sonogram unremarkable. Possible hernia palpated on abdominal exam. If still symptomatic in 2 weeks, will refer to general surgery. More than 50% of the physician/patient encounter was spent with counseling regarding diagnoses, treatment and coordination of care. The total visit time was 30 minutes. Author: Octaviano Rajput MD, 01/14/2019, 17:13 documented in this encounter Plan of Treatment Health Maintenance Due Date Last Done Comments HPV IMMUNIZATION SERIES (3 - 12/01/2008 09/08/2008, Female 3-dose series) 03/06/2006 DEPRESSION SCREENING 07/29/2018 07/29/2017 INFLUENZA VACCINE (#1) 2019 MENINGOCOCCAL VACCINE IMM Completed 09/08/2008 PNEUMOCOCCAL 0-64 YRS Aged Out No longer eligible based on patient's age to complete this topic documented as of this encounter Procedures Procedure Name Priority Date/Time Associated Comments Diagnosis PELVIC US NON OB Routine 01/14/2019 4:20 Pelvic pain Results for this TRANSVAGINAL PM EDT procedure are in the results section. documented in this encounter Results PELVIC US NON OB TRANSVAGINAL (01/14/2019 4:20 PM EDT) Specimen Narrative Performed At Octaviano Rajput MD [facility] POCT 01/14/2019 5:13 PM PELVIC US NON OB TRANSVAGINAL Date/Time: 01/14/2019 5:11 PM Performed by: Octaviano Rajput MD Authorized by: Octaviano Rajput MD Comments: Name:Dacia Contreras : 1990 DOS: 01/14/2019 Reason for visit : Pelvic pain- left sided LMP 2 days ago Uterus: Length 7.4 cm Height 307 cm Width 4.6 cm Endo thickness 2 mm Left ovary: 20 mm x 11 mm Right ovary 15 mm x 9 mm Impression: unremarkable pelvic sonogram Octaviano Rajput MD 01/14/2019 17:11 Performing Organization Address [place] [place] Number [facility] [address] [facility] [place] [id number] documented in this encounter Visit Diagnoses Diagnosis Pelvic pain - Primary documented in this encounter Insurance Payer Benefit Plan / Subscriber ID Effective Dates Phone Address Type Group [employer] xxxxxxxxxxxx 2018-Present [employer] Guarantor Name Account Type Relation to Date of Phone Billing Patient Address Dacia Contreras Personal/Family 1990 [address] (Home) [place] [phone] [place] [address] (Work) documented as of this encounter
== END 2019-01-20 10:00 | disposition home or self-care (01) ==
LOC: UCEAST 09:22
DX: L03.032 Cellulitis of left toe (principal); R03.0 Elevated blood-pressure reading, without diagnosis of hypertension
CPT/HCPCS: 99212; G0463

== ENCOUNTER 2019-01-22 15:18 | Emergency (ER) | payer BC ==
[2019-01-22 15:31] VITALS: BP 126/81
--- NOTE | 2019-01-22 16:30 | UC ---
Lower Extremity/Ankle HPI - HPI Summary HPI Summary: 28-year-old woman comes in with a chief complaint of left second toe pain and erythema. 2 days ago she was started on Keflex for a cellulitis of the toe after pedicure. The redness has decreased and now there is some darker color looking more like ecchymosis. Toe continues to be painful primarily with palpation. There is no streaking no drainage. No fevers or chills. - History of Current Complaint Chief Complaint: UCLowerExtremity Stated Complaint: CELLULITIS IN TOE Time Seen by Provider: 01/22/19 16:01 Hx Last Menstrual Period: control Pain Intensity: 7 - Allergies/Home Medications Allergies/Adverse Reactions: Allergies Allergy/AdvReac Type Severity Reaction Status Date / Time diphenhydramine Allergy Hallucinati Verified 01/20/19 09:32 ons ANTIHISTAMINES Allergy Unknown ANXIETY, Uncoded 01/20/19 09:32 HEART RACES Home Medications: Home Medications Ibuprofen [Advil Migraine] 200 mg PO 01/22/19 [History] PMH/Surg Hx/FS Hx/Imm Hx Previously Healthy: Yes - Surgical History Surgical History: Yes Surgery Procedure, Year, and Place: tubes in ears - childhood, LAPAROSCOPIC SURGERY FOR ENDOMETRIOSIS 2018, TONSILLECTOMY 2018 - Family History Known Family History: Positive: Cardiac Disease - maternal grandfather, Diabetes - maternal grandfather, Blood Disorder - Anemia, Other - A Fib, murmur mother B12 deficient , possibly secondary to vegan diet Negative: Hypertension Family History: Both parents are living and healthy - Social History Alcohol Use: Weekly Alcohol Amount: 3-4 Substance Use Type: Marijuana Substance Use Comment - Amount & Last Used: occasional Smoking Status (MU): Never Smoked Tobacco - Immunization History Most Recent Influenza Vaccination: No Most Recent Tetanus Shot: unknown Most Recent Pneumonia Vaccination: never Review of Systems All Other Systems Reviewed And Are Negative: Yes Constitutional: Positive: Negative Skin: Positive: Other - SEE HPI Eyes: Positive: Negative ENT: Positive: Negative Respiratory: Positive: Negative Cardiovascular: Positive: Negative Gastrointestinal: Positive: Negative Motor: Positive: Negative Neurovascular: Positive: Negative Musculoskeletal: Positive: Negative Neurological: Positive: Negative Psychological: Positive: Negative Is Patient Immunocompromised?: No Physical Exam Triage Information Reviewed: Yes Appearance: Well-Appearing, No Pain Distress, Well-Nourished Vital Signs: Initial Vital Signs Temp 99.2 F 01/22/19 15:26 Pulse 94 01/22/19 15:26 Resp 16 01/22/19 15:26 BP 126/81 01/22/19 15:26 Pulse Ox 100 01/22/19 15:26 Vital Signs Reviewed: Yes Eye Exam: Normal Eyes: Positive: Conjunctiva Clear Neck: Positive: Supple Respiratory: Positive: No respiratory distress Musculoskeletal: Positive: Strength Intact, ROM Intact Neurological: Positive: Alert Psychological: Positive: Age Appropriate Behavior Skin: Positive: Other - Left second toe has some erythema in the distal aspect. There is no drainage. Is mildly tender to palpation. No streaking. The proximal aspect of the second toe has some blanching ecchymosis. Lower Extremity Course/Dx - Course Course Of Treatment: Patient Name: JENNIFFER STONE Medical Record#: [id number] Ordering Physician: Andrea Melchor MD Acct.#: [id number] : 1990 Age: 28 Sex: F Location: [facility] Exam Date: 01/22/191611 ADM Status: REG ER Order Information: TOE LEFT 2ND Accession Number: [id number] CPT: 64736 Indication: LEFT second toe pain/burning sensation. Recent cellulitis. Comparison: No relevant prior exams available on the [facility] PACS for comparison. Technique: 3 views LEFT second toe. Report: #. Negative for fracture or malalignment. Preserved joint spaces. #. Negative for osteolysis or periosteal reaction. #. Unremarkable soft tissue contours. IMPRESSION: #. Negative radiographic exam of the LEFT second toe. <Electronically signed by Satnam Vizcaino MD in OV> 01/22/191634 Discussed the x-rays with the patient. At this time the saline as appears to be improving. I believe the ecchymosis is a transitional state back to normal. Reevaluation if worse or any questions or concerns. - Differential Dx/Diagnosis Provider Diagnosis: Cellulitis of second toe, left Discharge - Sign-Out/Discharge Documenting (check all that apply): Patient Departure All imaging exams completed and their final reports reviewed: Yes - Discharge Plan Condition: Stable Disposition: HOME Patient Education Materials: Cellulitis (ED) Referrals: Kim Babcock MD [Primary Care Provider] - Additional Instructions: FOLLOW UP WITH YOUR DOCTOR IF NOT COMPLETELY IMPROVED. GET RECHECKED SOONER IF YOUR CONDITION WORSENS OR ANY QUESTIONS OR CONCERNS. - Billing Disposition and Condition Condition: STABLE Disposition: Home
== END 2019-01-22 17:01 | disposition home or self-care (01) ==
LOC: UCEAST 15:18
DX: L03.032 Cellulitis of left toe (principal)
CPT/HCPCS: 99211; G0463

== ENCOUNTER 2019-05-23 12:30 | Emergency (ER) | payer BC ==
--- OUTSIDE RECORDS SUMMARY | 2019-05-23 12:36 | XMS REPORT | Summary of Care ---
:1990 Author Organization [facility] Address [address] [place] [address] Care Team Providers Name Role Phone Kim Babcock Primary Care Provider Reason for Referral Evaluate and Establish Treatment Plan (Routine) Status Reason Specialty Diagnoses / Referred By Referred To Procedures Contact Contact Authorized FAMILY PRACTICE / Diagnoses Depression, unspecified depression type Beverley Hayes [facility] [address] [place] [address] Reason for Visit Reason Comments Depression Encounter Details Date Type Department Care Team Description 04/12/2019 Office Visit [facility] Beverley Hayes, Depression, unspecified depression type (Primary Dx); Practice [facility] Anxiety [address] [facility] [address] [place] [address] [phone] Allergies Active Allergy Reactions Severity Noted Date Comments Benadryl Allergy BRASS CUTTER Reaction 01/26/2016 Hallucinations, rapid heart rate, after IV benadryl Fluoxetine Rash 11/18/2016 Zoloft GI Reaction 11/07/2016 documented as of this encounter (statuses as of 04/12/2019) Medications Medication Sig Dispensed Refills Start Date End Date Status MULTIPLE VITAMIN PO Take 1 Tab by mouth 0 03/25/2016 Active DAILY. BIOTIN PO Take by mouth. 0 Active albuterol HFA Take 2 Puffs by 1 Inhaler 0 04/03/2018 Active (VENTOLIN) 108 (90 inhalation EVERY Base) MCG/ACT FOUR HOURS Inhalation Aero Soln NEEDED (SOB). Levonorgest-Eth Take 1 Tab by mouth 91 Tab 3 02/05/2019 Active Estrad 91-Day DAILY. (SEASONIQUE) 0.15-0.03 &0.01 MG Oral Tab citalopram (CELEXA) Take 1 Tab by mouth 30 Tab 1 04/12/2019 Active 10 MG Oral DAILY. TabIndications: Depression, unspecified depression type, Anxiety documented as of this encounter (statuses as of 04/12/2019) Active Problems Problem Noted Date Thrush of mouth and esophagus 10/12/2018 Abnormal uterine bleeding (AUB) 01/01/2018 Overview: Added automatically from request for surgery [id number] Chronic tonsillar hypertrophy 10/07/2016 Deviated nasal septum 10/07/2016 Hypertrophy, nasal, turbinate 10/07/2016 Idiopathic scoliosis 10/04/2016 Scoliosis 11/14/2010 documented as of this encounter (statuses as of 04/12/2019) Immunizations Name Administration Dates Next Due DTAP [...] Sign Reading Time Taken Comments Blood Pressure - - Pulse 63 04/12/2019 9:59 AM EST Temperature 36.7 04/12/2019 9:59 AM EST C (98.1 F) Respiratory Rate - - Oxygen Saturation 98% 04/12/2019 9:59 AM EST Inhaled Oxygen Concentration - - Weight 72.1 kg (159 lb) 04/12/2019 9:59 AM EST Height 177.8 cm (5' 10") 04/12/2019 9:59 AM EST Body Mass Index 22.81 04/12/2019 9:59 AM EST documented in this encounter Patient Instructions Patient InstructionsBeverley Hayes FNP - 04/12/2019 10:00 AM ESTStart Celexa - 1/2 tab initially then go to whole tab after 8 days Counseling - referral done Follow up 1 month - call if any issues before that documented in this encounter Progress Notes Beverley Hayes FNP - 04/12/2019 10:00 AM EST PATIENT: Dacia Contreras : 1990 DATE OF SERVICE: 04/12/2019 CHIEF COMPLAINT: Chief Complaint Patient presents with Depression Subjective HISTORY OF PRESENT ILLNESS: Dacia Contreras is a 28-y.o. female. HPI Persistent depression with anxiety - has tried several medications in the past - does not recall adverse effect of them but stopped meds. Past Medical History: Diagnosis Date Acne Cardiac dysrhythmia Headache disorder Otitis media Pharyngitis Sinusitis, chronic Thrush of mouth and esophagus (HCC) 10/12/2018 Family History Problem Relation Age of Onset Allergies Mother Diabetes Maternal Grandmother Diabetes Maternal Grandfather Heart Maternal Grandfather Current Outpatient Medications Medication Sig albuterol HFA (VENTOLIN) 108 (90 Base) MCG/ACT Inhalation Aero Soln Take 2 Puffs by inhalation EVERY FOUR HOURS NEEDED (SOB). BIOTIN PO Take by mouth. citalopram (CELEXA) 10 MG Oral Tab Take 1 Tab by mouth DAILY. Levonorgest-Eth Estrad 91-Day (SEASONIQUE) 0.15-0.03 &0.01 MG Oral Tab Take 1 Tab by mouth DAILY. MULTIPLE VITAMIN PO Take 1 Tab by mouth DAILY. No current facility-administered medications for this visit. Allergies Allergen Reactions Benadryl Allergy BRASS CUTTER Reaction Hallucinations, rapid heart rate, after IV benadryl Prozac [Fluoxetine] Rash Zoloft GI Reaction Social History Socioeconomic History Marital status: Single Spouse name: Not on file Number of children: Not on file Years of education: Not on file Highest education level: Not on file Occupational History Not on file Social Needs Financial resource strain: Not on file Food insecurity: Worry: Not on file Inability: Not on file Transportation needs: Medical: Not on file Non-medical: Not on file Tobacco Use Smoking status: Never Smoker Smokeless tobacco: Never Used Substance and Sexual Activity Alcohol use: Yes Alcohol/week: 2.0 standard drinks Types: 2 Cans of beer per week Comment: occasionally Drug use: Yes Types: Marijuana Comment: occasionally Sexual activity: Yes Partners: Male control/protection: Pill Comment: Pt now has an IUD Lifestyle Physical activity: Days per week: Not on file Minutes per session: Not on file Stress: Not on file Relationships Social connections: Talks on phone: Not on file Gets together: Not on file Attends mormon service: Not on file Active member of club or organization: Not on file Attends meetings of clubs or organizations: Not on file Relationship status: Not on file Intimate partner violence: Fear of current or ex partner: Not on file Emotionally abused: Not on file Physically abused: Not on file Forced sexual activity: Not on file Other Topics Concern Back Care Not Asked Bike Helmet Not Asked Blood Transfusions Not Asked Caffeine Concern Not Asked Exercise Not Asked Hobby Hazards Not Asked International Travel Not Asked Service Not Asked Occupational Exposure Not Asked Seat Belt Not Asked Self-Exams Not Asked Sleep Concern Not Asked Special Diet Not Asked Stress Concern Not Asked Weight Concern Not Asked Social History Kenn Works at [employer]; 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 Over the last 2 weeks, have you been feeling down, depressed, anxious, or hopeless?: 3 Over the past 2 weeks, have you felt little interest or pleasure in doing things ?: 3 Trouble falling or staying asleep, or sleeping too much?: 3 Feeling tired or having little energy?: 3 Poor appetite or overeating?: 3 Feeling bad about yourself or that you are a failure or have let yourself or your family down?: 3 Trouble concentrating on things, such as reading the newspaper or watching TV?: 3 Moving or speaking so slowly that other people notice OR being fidgety and restless?: 3 Thoughts that you would be better off or of hurting yourself in some way?: 3 PHQ-9 TOTAL SCORE: 27 How difficult have these problems made it for you to do your work, take care of things at home or get along with people?: Somewhat difficult In the past 2 years, have you felt depressed or sad most days, even if you felt ok?: Yes REVIEW OF SYSTEMS: Review of Systems Constitutional: Positive for malaise/fatigue. Psychiatric/Behavioral: Positive for depression. Negative for hallucinations, substance abuse and suicidal ideas. The patient is nervous/anxious. The patient does not have insomnia. Objective PHYSICAL EXAM: VITALS: Pulse 63 | Temp 98.1 F (36.7 C) (Tympanic) | Ht 5' 10" ( 1.778 m) | Wt 159 lb (72.1 kg) | SpO2 98% | BMI 22.81 kg/m Body mass index is 22.81 kg/m. Physical Exam Constitutional: Appearance: Normal appearance. Skin: General: Skin is warm and dry. Neurological: Mental Status: She is alert and oriented to person, place, and time. Psychiatric: Mood and Affect: Mood normal. Speech: Speech normal. Behavior: Behavior is cooperative. Thought Content: Thought content is not delusional. Thought content does not include homicidal orsuicidal plan. Cognition and Memory: Cognition normal. Judgment: Judgment normal. Comments: PHQ-9 score 27. Lack of motivation, wants to stay in bed all the time. Has had sx off and on for years - denies SI or HI - tried Prozac, Zoloft - caused GI issues. Currently attending [employer]. No recent medications - last was 2 years ago. Has GI issues so very sensitive to meds. Also interested in counseling. Discussed medications - can try ivana low dose Celexa to start and see if tolerated - use and side effects reviewed with pt. Referral done for counseling as well ASSESSMENT / IMPRESSION: ICD-9-CM ICD-10-CM 1. Depression, unspecified depression type 311 F32.9 citalopram (CELEXA) 10 MG Oral Tab REFER TO COUNSELING 2. Anxiety 300.00 F41.9 citalopram (CELEXA) 10 MG Oral Tab Plan Start Celexa - 1/2 tab initially then go to whole tab after 8 days Counseling - referral done Follow up 1 month - call if any issues before that 25 minutes spent with patient, greater than 50% of time in [id number] counseling and discussion ofsx, medications and follow up Author: [place] 04/12/2019 12:09 documented in this encounter Plan of Treatment Name Type Priority Associated Diagnoses Order Schedule REFER TO COUNSELING Referral Routine Depression, unspecified Expected: 09/2018, depression type Expires: 04/12/2020 Health Maintenance Due Date Last Done Comments HPV IMMUNIZATION SERIES (3 - 12/01/2008 09/08/2008, Female 3-dose series) 03/06/2006 INFLUENZA VACCINE (#1) 2019 DEPRESSION SCREENING 04/12/2020 04/12/2019, 04/12/2019 MENINGOCOCCAL VACCINE IMM Completed 09/08/2008 PNEUMOCOCCAL 0-64 YRS Aged Out No longer eligible based on patient's age to complete this topic documented as of this encounter Results Not on filedocumented in this encounter Visit Diagnoses Diagnosis Depression, unspecified depression type - Primary Anxiety Anxiety state, unspecified documented in this encounter Insurance Payer Benefit Plan / Subscriber ID Effective Dates Phone Address Type Group [employer] xxxxxxxxxxxx 2018-Present [employer] Guarant[employer] Name Account Type Relation to Date of Phone Billing Patient Address Dacia Contreras Personal/Family 1990 [address] (Home) [place] [phone] [place] [address] (Work) documented as of this encounter
[2019-05-23 12:37] VITALS: BP 133/95
--- NOTE | 2019-05-23 12:47 | UC ---
Throat Pain/Nasal [place] HPI - HPI Summary HPI Summary: worsening pain and sinus congestion for 2 weeks - History of Current Complaint Chief Complaint: UCRespiratory Stated Complaint: SINUS COMPLAINT Time Seen by Provider: 05/23/19 12:36 Hx Obtained From: Patient Hx Last Menstrual Period: on control ?: No Onset/Duration: Sudden Onset, Gradual Onset, Lasting Weeks Pain Intensity: 5 Pain Scale Used: 0-10 Numeric Cough: None Associated Signs & Symptoms: Positive: Sinus Discomfort, Nasal Discharge, Fever - Allergies/Home Medications Allergies/Adverse Reactions: Allergies Allergy/AdvReac Type Severity Reaction Status Date / Time diphenhydramine Allergy Hallucinati Verified 05/23/19 12:37 ons ANTIHISTAMINES Allergy Unknown ANXIETY, Uncoded 05/23/19 12:37 HEART RACES Home Medications: Home Medications Control* 1 tab PO DAILY 05/23/19 [History Confirmed 05/23/19] PMH/Surg Hx/FS Hx/Imm Hx Previously Healthy: Yes - Surgical History Surgical History: Yes Surgery Procedure, Year, and Place: tubes in ears - childhood, LAPAROSCOPIC SURGERY FOR ENDOMETRIOSIS 2018, TONSILLECTOMY 2018 - Family History Known Family History: Positive: Cardiac Disease - maternal grandfather, Diabetes - maternal grandfather, Blood Disorder - Anemia, Other - A Fib, murmur mother B12 deficient , possibly secondary to vegan diet Negative: Hypertension Family History: Both parents are living and healthy - Social History Occupation: Employed Full-time Lives: With Family Alcohol Use: Occasionally Alcohol Amount: 3-4 Substance Use Type: None Substance Use Comment - Amount & Last Used: occasional Smoking Status (MU): Never Smoked Tobacco - Immunization History Most Recent Influenza Vaccination: No Most Recent Tetanus Shot: unknown Most Recent Pneumonia Vaccination: never Review of Systems All Other Systems Reviewed And Are Negative: Yes Constitutional: Positive: Fever, Chills, Fatigue Skin: Positive: Negative Eyes: Positive: Negative ENT: Positive: Nasal Discharge, Sinus Congestion, Sinus Pain/Tenderness Respiratory: Positive: Negative Cardiovascular: Positive: Negative Gastrointestinal: Positive: Negative Genitourinary: Positive: Negative Motor: Positive: Negative Neurovascular: Positive: Negative Musculoskeletal: Positive: Negative Neurological: Positive: Negative Psychological: Positive: Negative Is Patient Immunocompromised?: No Physical Exam Triage Information Reviewed: Yes Appearance: Well-Appearing, No Pain Distress, Well-Nourished Vital Signs: Initial Vital Signs Temp 98.4 F 05/23/19 12:33 Pulse 79 05/23/19 12:33 Resp 16 05/23/19 12:33 BP 133/95 05/23/19 12:33 Pulse Ox 100 05/23/19 12:33 Vital Signs Reviewed: Yes Eye Exam: Normal Eyes: Positive: Conjunctiva Clear ENT Exam: Normal ENT: Positive: Normal ENT inspection, Hearing grossly normal, Pharynx normal, Nasal congestion, TMs normal, Sinus tenderness, Uvula midline. Negative: Nasal drainage, Trismus, Muffled voice, Hoarse voice, Dental tenderness Dental Exam: Normal Neck exam: Normal Neck: Positive: Supple, Nontender Respiratory Exam: Normal Respiratory: Positive: Chest non-tender, Lungs clear, Normal breath sounds, No respiratory distress, No accessory muscle use Cardiovascular Exam: Normal Cardiovascular: Positive: RRR, No Murmur, Pulses Normal, Brisk Capillary Refill Musculoskeletal Exam: Normal Musculoskeletal: Positive: Strength Intact, ROM Intact, No Edema Neurological Exam: Normal Neurological: Positive: Alert, Muscle Tone Normal Psychological Exam: Normal Skin Exam: Normal Throat Pain/Nasal Course/Dx - Course Course Of Treatment: flonase, Augmentin increase fluids follow with pcp prn - Differential Dx/Diagnosis Provider Diagnosis: Sinusitis Discharge ED - Sign-Out/Discharge Documenting (check all that apply): Patient Departure All imaging exams completed and their final reports reviewed: No Studies - Discharge Plan Condition: Stable Disposition: HOME Prescriptions: Amoxicillin/Clavulanate TAB* [Augmentin TAB 875*] 875 mg PO BID #20 tab Fluconazole 150 MG TAB* [Diflucan 150 MG TAB*] 150 mg PO ONCE #1 tablet Fluticasone NASAL SPRAY 50MCG* [Flonase NASAL SPRAY 50MCG*] 2 spray BOTH NARES DAILY #1 btl Patient Education Materials: Sinusitis (ED), How to Use Nasal [place] (ED) Referrals: Kim Babcock MD [Primary Care Provider] - If Needed - Billing Disposition and Condition Condition: STABLE Disposition: Home - Attestation Statements Provider Attestation: I was available for consult. This patient was seen by the PRERNA. The patient was not presented to , seen by or examined by sc -Татьяна Cantrell MD
== END 2019-05-23 12:53 | disposition home or self-care (01) ==
LOC: UCEAST 12:30
DX: J32.9 Chronic sinusitis, unspecified (principal); Z88.8 Allergy status to other drugs, medicaments and biological substances
CPT/HCPCS: 99212; G0463

== ENCOUNTER 2019-07-28 11:26 | Emergency (ER) | payer BC ==
--- OUTSIDE RECORDS SUMMARY | 2019-07-28 11:34 | XMS REPORT | Summary of Care ---
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 BIOTIN PO Take by mouth. 0 Active albuterol HFA Take 2 Puffs by 1 Inhaler 0 04/03/2018 Active (VENTOLIN) 108 (90 inhalation EVERY Base) MCG/ACT FOUR HOURS Inhalation Aero Soln NEEDED (SOB). SIMPESSE 0.15-0.03 TAKE ONE TABLET BY 91 Tab 0 05/03/2019 Active &0.01 MG Oral Tab MOUTH EVERY DAY citalopram (CELEXA) TAKE ONE TABLET BY 30 Tab 5 06/07/2019 Active 10 MG Oral MOUTH EVERY DAY TabIndications: Depression, unspecified depression type, Anxiety montelukast Take 1 Tab by mouth 30 Tab 1 07/21/2019 Active (SINGULAIR) 10 MG DAILY. Oral Tab documented as of this encounter (statuses as of 07/27/2019) Active Problems Problem Noted Date Thrush of mouth and esophagus 10/12/2018 Abnormal uterine bleeding (AUB) 01/01/2018 Overview: Added automatically from request for surgery [id number] Chronic tonsillar hypertrophy 10/07/2016 Deviated nasal septum 10/07/2016 Hypertrophy, nasal, turbinate 10/07/2016 Idiopathic scoliosis 10/04/2016 Scoliosis 11/14/2010 documented as of this encounter (statuses as of 07/27/2019) Immunizations Name Administration Dates Next Due DTAP [...] Assigned at Date Recorded Not on file documented as of this encounter Last Filed Vital Signs Vital Sign Reading Time Taken Comments Blood Pressure 120/64 07/27/2019 1:41 PM EST Pulse 94 07/27/2019 1:41 PM EST Temperature 37.7 07/27/2019 1:41 PM EST C (99.8 F) Respiratory Rate - - Oxygen Saturation 97% 07/27/2019 1:41 PM EST Inhaled Oxygen Concentration - - Weight 74.4 kg (164 lb) 07/27/2019 1:41 PM EST Height 177.8 cm (5' 10") 07/27/2019 1:41 PM EST Body Mass Index 23.53 07/27/2019 1:41 PM EST documented in this encounter Patient Instructions Patient InstructionsBeverley Hayes FNP - 07/27/2019 1:40 PM ESTRest Fluids Steam may help loosen congestion Mucinex thins mucus salt water gargle as needed for sore/scratchy throat Call if symptoms fail to resolve or worsen Ibuprofen 800 mg 3 times a day with 2 tylenol Call Friday if no improvementElectronically signed by Beverley Hayes FNP at 1:57 PM EST documented in this encounter Progress Notes Beverley Hayes FNP - 07/27/2019 1:40 PM EST PATIENT: Dacia Contreras : 1990 DATE OF SERVICE: 07/27/2019 CHIEF COMPLAINT: Chief Complaint Patient presents with ? Ear Problem left ear, pain behind the ear x5 days, unsure of swelling, extremely tender Subjective HISTORY OF PRESENT ILLNESS: Dacia Contreras is a 29-y.o. female. HPI Pain left ear area x 5 days - Ibuprofen not helping Past Medical History: Diagnosis Date ? Acne ? Cardiac dysrhythmia ? Headache disorder ? Otitis media ? Pharyngitis ? Sinusitis, chronic ? Thrush of mouth and esophagus (HCC) 10/12/2018 Family History Problem Relation Age of Onset ? Allergies Mother ? Diabetes Maternal Grandmother ? Diabetes Maternal Grandfather ? Heart Maternal Grandfather Current Outpatient Medications Medication Sig ? albuterol HFA (VENTOLIN) 108 (90 Base) MCG/ACT Inhalation Aero Soln Take 2 Puffs by inhalation EVERY FOUR HOURS NEEDED (SOB). ? BIOTIN PO Take by mouth. ? citalopram (CELEXA) 10 MG Oral Tab TAKE ONE TABLET BY MOUTH EVERY DAY ? montelukast (SINGULAIR) 10 MG Oral Tab Take 1 Tab by mouth DAILY. ? MULTIPLE VITAMIN PO Take 1 Tab by mouth DAILY. ? SIMPESSE 0.15-0.03 &0.01 MG Oral Tab TAKE ONE TABLET BY MOUTH EVERY DAY No current facility-administered medications for this visit. Allergies Allergen Reactions ? Benadryl Allergy CLINICAL STAFF ANESTHESIOLOGIST Reaction Hallucinations, rapid heart rate, after IV benadryl ? Prozac [Fluoxetine] Rash ? Zoloft GI Reaction Social History Socioeconomic History ? Marital status: Single Spouse name: Not on file ? Number of children: Not on file ? Years of education: Not on file ? Highest education level: Not on file Occupational History ? Not on file Social Needs ? Financial resource strain: Not on file ? Food insecurity Worry: Not on file Inability: Not on file ? Transportation needs Medical: Not on file Non-medical: Not on file Tobacco Use ? Smoking status: Never Smoker ? Smokeless tobacco: Never Used Substance and Sexual Activity ? Alcohol use: Yes Alcohol/week: 2.0 standard drinks Types: 2 Cans of beer per week Comment: occasionally ? Drug use: Yes Types: Marijuana Comment: occasionally ? Sexual activity: Yes Partners: Male control/protection: Pill Comment: Pt now has an IUD Lifestyle ? Physical activity Days per week: Not on file Minutes per session: Not on file ? Stress: Not on file Relationships ? Social connections Talks on phone: Not on file Gets together: Not on file Attends amish service: Not on file Active member of club or organization: Not on file Attends meetings of clubs or organizations: Not on file Relationship status: Not on file ? Intimate partner violence Fear of current or ex partner: Not on file Emotionally abused: Not on file Physically abused: Not on file Forced sexual activity: Not on file Other Topics Concern ? Back Care Not Asked ? Bike Helmet Not Asked ? Blood Transfusions Not Asked ? Caffeine Concern Not Asked ? Exercise Not Asked ? Hobby Hazards Not Asked ? International Travel Not Asked ? Service Not Asked ? Occupational Exposure Not Asked ? Seat Belt Not Asked ? Self-Exams Not Asked ? Sleep Concern Not Asked ? Special Diet Not Asked ? Stress Concern Not Asked ? 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 REVIEW OF SYSTEMS: Review of Systems Constitutional: Positive for malaise/fatigue. Negative for chills and fever. HENT: Positive for congestion and ear pain. Negative for ear discharge, hearing loss, sore throat and tinnitus. Respiratory: Negative for cough. Musculoskeletal: Positive for myalgias. Neurological: Negative for dizziness and headaches. Objective PHYSICAL EXAM: VITALS: BP 120/64 | Pulse 94 | Temp 99.8 F (37.7 C) (Tympanic) | Ht 5' 10" (1.778 m) | Wt 164 lb (74.4 kg) | SpO2 97% | BMI 23.53 kg/m Body mass index is 23.53 kg/m. Physical Exam Vitals signs and nursing note reviewed. Constitutional: General: She is not in acute distress. Appearance: Normal appearance. HENT: Head: Normocephalic and atraumatic. Right Ear: A middle ear effusion is present. Left Ear: A middle ear effusion is present. Nose: Nose normal. Mouth/Throat: Lips: [place]. Mouth: Mucous membranes are moist. Pharynx: No posterior oropharyngeal erythema. Eyes: Pupils: Pupils are equal, round, and reactive to light. Neck: Musculoskeletal: Normal range of motion. Lymphadenopathy: Head: Right side of head: No preauricular or posterior auricular adenopathy. Left side of head: No preauricular or posterior auricular adenopathy. Cervical: Cervical adenopathy present. Right cervical: No superficial cervical adenopathy. Left cervical: Superficial cervical adenopathy present. Skin: General: Skin is warm and dry. Capillary Refill: Capillary refill takes less than 2 seconds. Coloration: Skin is not ashen, cyanotic or pale. Findings: No rash. Neurological: Mental Status: She is alert. Psychiatric: Behavior: Behavior is cooperative. ASSESSMENT / IMPRESSION: ICD-9-CM ICD-10-CM 1. Viral illness 079.99 B34.9 2. ETD (Eustachian tube dysfunction), bilateral 381.81 H69.83 Plan Rest Fluids Steam may help loosen congestion Mucinex thins mucus salt water gargle as needed for sore/scratchy throat Call if symptoms fail to resolve or worsen Ibuprofen 800 mg 3 times a day with 2 tylenol Call Friday if no improvement Author: BAL [place] 07/27/2019 13:59 documented in this encounter Plan of Treatment Date Type Specialty Care Team Description 08/25/2019 Office Visit Otorhinolaryngology Yaima Corbin PA-C [address] [address] Health Maintenance Due Date Last Done Comments HPV IMMUNIZATION SERIES (3 - 01/08/2009 09/08/2008, 03/06/2006 Female 3-dose series) HEPATITIS A IMMUNIZATION 03/10/2009 09/08/2008 SERIES (2 of 2 - 2-dose series) DTaP/Tdap/Td Vaccines (8 - 03/06/2016 03/06/2006, 06/06/2004, Tdap) 09/11/1994, Additional history exists INFLUENZA VACCINE (#1) 2019 DEPRESSION SCREENING 04/12/2020 04/12/2019, 04/12/2019 MENINGOCOCCAL VACCINE IMM Completed 09/08/2008 PNEUMOCOCCAL 0-64 YRS Aged Out No longer eligible based on patient's age to complete this topic documented as of this encounter Goals Goal Patient Goal Associated Recent Patient-Stated? Author Type Problems Progress Depression Depression 27 No ebenezer Hayes (PHQ-9) (04/12/2019 BAL [place] total score < 5 9:58 AM EST) Note: This is an individualized treatment (depression) goal for Dacia Contreras: Displayed above is your goal for a depression screening (PHQ-9) score that would indicate good control of your depression. Keep a regular sleep schedule Lifestyle No Beverley Hayes FNP Note: This is an individualized lifestyle goal for Daica Contreras: Please maintain a regular sleep schedule. This may help with some symptoms of depression. Take all prescribed medications as Self-management No Beverley Hayes FNP directed Note: This is an individualized self-management goal for Dacia Contreras: Please take all prescribed medications as directed. 1. Do not skip doses. If you cannot afford your medications, talk with your doctor. 2. Use a pill reminder system such as a pill box if needed. Your pharmacist can help you with this. 3. Contact your Pharmacy 5 days before your medication runs out. If you cannot take your medications for any reasons, talk with your doctor. 4. Please bring all of your medication bottles and inhalers (or a list of all your medications/inhalers) with you to every visit. Potential barriers to meeting all of your care plan goals will continue to be addressed on an ongoing basis. documented as of this encounter Results Not on filedocumented in this encounter Visit Diagnoses Diagnosis Viral illness Unspecified viral infection, in conditions classified elsewhere and of unspecified site ETD (Eustachian tube dysfunction), bilateral documented in this encounter Insurance Payer Benefit Plan / Subscriber ID Effective Dates Phone Address Type Group [employer] [id number] 2018-Present [employer] Guarantor Name Account Type Relation to Date of Phone Billing Address Patient Dacia Contreras Personal/Famil 1990 [phone] (Home) [place] [phone] [place] [address] 7 (Work) documented as of this encounter
--- OUTSIDE RECORDS SUMMARY | 2019-07-28 11:34 | XMS REPORT | Summary of Care ---
:1990 Author Organization [facility] Address [address] [place] [address] Care Team Providers Name Role Phone Kim Babcock Primary Care Provider Reason for Referral Refer to Department Only (Routine) Status Reason Specialty Diagnoses / Referred By Referred To Procedures Contact Contact Pending Review Physical Therapy Diagnoses Right foot pain Beverley Hayes, THERMOMETER MAKER [address] [place] [address] Reason for Visit Reason Comments Foot Pain bottom of right foot pain and swelling x1 month, unable to move toes Encounter Details Date Type Department Care Team Description 07/09/2019 Office Visit [place] Beverley Ferguson Right foot pain Practice THERMOMETER MAKER (Primary Dx) [address] [facility] [address] [place] [address] [place] [address] [phone] Allergies Active Allergy Reactions Severity Noted Date Comments Benadryl Allergy WHITE SUGAR PAN TANK OPERATOR Reaction 01/26/2016 Hallucinations, rapid heart rate, after IV benadryl Fluoxetine Rash 11/18/2016 Zoloft GI Reaction 11/07/2016 documented as of this encounter (statuses as of 07/09/2019) Medications Medication Sig Dispensed Refills Start Date [...] DAY TabIndications: Depression, unspecified depression type, Anxiety documented as of this encounter (statuses as of 07/09/2019) Active Problems Problem Noted Date Thrush of mouth and esophagus 10/12/2018 Abnormal uterine bleeding (AUB) 01/01/2018 Overview: Added automatically from request for surgery [id number] Chronic tonsillar hypertrophy 10/07/2016 Deviated nasal septum 10/07/2016 Hypertrophy, nasal, turbinate 10/07/2016 Idiopathic scoliosis 10/04/2016 Scoliosis 11/14/2010 documented as of this encounter (statuses as of 07/09/2019) Immunizations Name Administration Dates Next Due DTAP [...] Sign Reading Time Taken Comments Blood Pressure 130/68 07/09/2019 2:53 PM EST Pulse - - Temperature - - Respiratory Rate - - Oxygen Saturation - - Inhaled Oxygen Concentration - - Weight 73.5 kg (162 lb) 07/09/2019 2:53 PM EST Height 177.8 cm (5' 10") 07/09/2019 2:53 PM EST Body Mass Index 23.24 07/09/2019 2:53 PM EST documented in this encounter Patient Instructions Patient InstructionsBeverley Hayes FNP - 07/09/2019 2:40 PM ESTIbuprofen 2-3 tabs 2-3 times a day with food Warm soak with epsom salt may help Xray done PT referral done 3: 25 PM EST documented in this encounter Progress Notes Beverley Hayes FNP - 07/09/2019 2:40 PM EST PATIENT: Dacia Contreras : 1990 DATE OF SERVICE: 07/09/2019 CHIEF COMPLAINT: Chief Complaint Patient presents with Foot Pain bottom of right foot pain and swelling x1 month, unable to move toes Subjective HISTORY OF PRESENT ILLNESS: Dacia Contreras is a 29-y.o. female. HPI Pain in ball of foot x 1 month - did have injury about a year ago to same foot/ toes that was never evaluated. Using Ibuprofen - no change Pain better with shoes on , worse if bare foot. Past Medical History: Diagnosis Date Acne Cardiac [...] mouth. citalopram (CELEXA) 10 MG Oral Tab TAKE ONE TABLET BY MOUTH EVERY DAY MULTIPLE VITAMIN PO Take 1 Tab by mouth DAILY. SIMPESSE 0.15-0.03 &0.01 MG Oral Tab TAKE ONE TABLET BY MOUTH EVERY DAY No current facility-administered medications for this visit. Allergies Allergen Reactions Benadryl Allergy WHITE SUGAR PAN TANK OPERATOR Reaction Hallucinations, rapid heart rate, after IV benadryl Prozac [Fluoxetine] Rash Zoloft GI Reaction Social History Socioeconomic History Marital status: Single Spouse name: Not on file Number of children: Not on file Years of education: Not on file Highest education level: Not on file Occupational History Not on file Social Needs Financial resource strain: Not on file Food insecurity Worry: Not on file Inability: Not on file Transportation needs Medical: Not on file Non-medical: Not on file Tobacco Use Smoking status: Never Smoker Smokeless tobacco: Never Used Substance and Sexual Activity Alcohol use: Yes Alcohol/week: 2.0 standard drinks Types: 2 Cans of beer per week Comment: occasionally Drug use: Yes Types: Marijuana Comment: occasionally Sexual activity: Yes Partners: Male control/protection: Pill Comment: Pt now has an IUD Lifestyle Physical activity Days per week: Not on file Minutes per session: Not on file Stress: Not on file Relationships Social connections Talks on phone: Not on file Gets together: Not on file Attends faith service: Not on file Active member of club or organization: Not on file Attends meetings of clubs or organizations: Not on file Relationship status: Not on file Intimate partner violence Fear of current or [...] Not Asked Social History Kenn Works at [employer]; 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 REVIEW OF SYSTEMS: Review of Systems Cardiovascular: Negative for leg swelling. Musculoskeletal: Positive for joint pain and myalgias. Negative for falls. Neurological: Negative for tingling. Objective PHYSICAL EXAM: VITALS: BP 130/68 | Ht 5' 10" (1.778 m) | Wt 162 lb (73.5 kg) | BMI 23.24 kg /m Body mass index is 23.24 kg/m. Physical Exam Vitals signs and nursing note reviewed. Constitutional: Appearance: Normal appearance. Musculoskeletal: Right foot: Normal range of motion and normal capillary refill. Tenderness present. No swelling, crepitus, deformity or laceration. Feet: Skin: General: Skin is warm and dry. Capillary Refill: Capillary refill takes less than 2 seconds. Findings: No bruising, erythema or rash. Neurological: Mental Status: She is alert and oriented to person, place, and time. Sensory: Sensation is intact. Gait: Gait is intact. Psychiatric: Behavior: Behavior is cooperative. ASSESSMENT / IMPRESSION: ICD-9-CM ICD-10-CM 1. Right foot pain 729.5 M79.671 XR FOOT MIN 3 VIEWS RIGHT (STANDARD) REFER TO PHYSICAL THERAPY / REHAB Plan Ibuprofen 2-3 tabs 2-3 times a day with food Warm soak with epsom salt may help Xray done PT referral done Author: BAL [place] 07/09/2019 15:29 documented in this encounter Plan of Treatment Name Type Priority Associated Diagnoses Date/Time XR FOOT MIN 3 VIEWS Imaging Routine Right foot pain 07/09/2019 3:14 PM EST RIGHT (STANDARD) Name Type Priority Associated Diagnoses Order Schedule XR FOOT MIN 3 VIEWS Imaging Routine Right foot pain Expected: 07/09/2019, RIGHT (STANDARD) Expires: 07/08/2020 Name Type Priority Associated Diagnoses Order Schedule REFER TO PHYSICAL Referral Routine Right foot pain 99 Occurrences starting THERAPY / REHAB 07/09/2019 until 07/09/2020 Health Maintenance Due Date Last Done Comments [...] Depression 27 No ebenezer Hayes (PHQ-9) (04/12/2019 Beverley, THERMOMETER MAKER total score < 5 9:58 AM EST) Note: This is an individualized treatment (depression) goal for Dacia Contreras: Displayed above is your goal for a depression screening (PHQ-9) score that would indicate good control of your depression. Keep a regular sleep schedule Lifestyle No Beverley Hayes FNP Note: This is an individualized lifestyle goal for Dacia Contreras: Please maintain a regular sleep schedule. [...] filedocumented in this encounter Visit Diagnoses Diagnosis Right foot pain Pain in limb documented in this encounter Insurance Payer Benefit Plan / Subscriber ID Effective Dates Phone Address Type Group MILANA MOREJONBS MILANA MOREJONBS xxxxxxxxxxxx 2018-Present [employer] Guarantor Name Account Type Relation to Date of Phone Billing Address Patient Dacia Contreras Personal/Famil 1990 [phone] [address] (Home) [facility] [phone] [place] [address] 7 (Work) documented as of this encounter
--- OUTSIDE RECORDS SUMMARY | 2019-07-28 11:34 | XMS REPORT | Summary of Care ---
:1990 Author Organization [facility] Address [address] [facility] [place] [address] Care Team Providers Name Role Phone Oneida Babcockh Primary Care Provider Reason for Visit Reason Comments Sinus Problem Encounter Details Date Type Department Care Team Description 07/21/2019 Office Visit Yaima Whitley, Nasal congestion (Primary Dx); Otorhinolaryngology PA-C Facial pressure; [address] Mucous retention cyst of maxillary sinus [place] [address] [place] [address] Allergies Active Allergy Reactions Severity Noted Date Comments Benadryl Allergy TOUR ESCORT Reaction 01/26/2016 Hallucinations, rapid heart rate, after IV benadryl Fluoxetine Rash 11/18/2016 Zoloft GI Reaction 11/07/2016 documented as of this encounter (statuses as of 07/21/2019) Medications Medication Sig Dispensed Refills Start Date [...] as of this encounter (statuses as of 07/21/2019) Active Problems Problem Noted Date Thrush of mouth and esophagus 10/12/2018 Abnormal uterine bleeding (AUB) 01/01/2018 Overview: Added automatically from request for surgery [id number] Chronic tonsillar hypertrophy 10/07/2016 Deviated nasal septum 10/07/2016 Hypertrophy, nasal, turbinate 10/07/2016 Idiopathic scoliosis 10/04/2016 Scoliosis 11/14/2010 documented as of this encounter (statuses as of 07/21/2019) Immunizations Name Administration Dates Next Due DTAP [...] Sign Reading Time Taken Comments Blood Pressure 110/78 07/21/2019 9:02 AM EST Pulse 80 07/21/2019 9:02 AM EST Temperature - - Respiratory Rate - - Oxygen Saturation 99% 07/21/2019 9:02 AM EST Inhaled Oxygen Concentration - - Weight 73.8 kg (162 lb 9.6 oz) 07/21/2019 9:02 AM EST Height 177.8 cm (5' 10") 07/21/2019 9:02 AM EST Body Mass Index 23.33 07/21/2019 9:02 AM EST documented in this encounter Patient Instructions Patient InstructionsYaima Corbin PA-C - 07/21/2019 9:00 AM ESTWe have discussed the use of Flonase and Singulair today since you have difficulty with antihistamines. You did not adequately use the flonase for the recommended duration for symptom relief which is why we have discussed resuming this today You may use 2 sprays in each nostril once daily. Please point the tip of the nasal spray to the outside of the nose to help prevent irritation and bleeding. You will also want to use nasal saline (3 hours after Flonase) every 3-4 hours to help keep the noise moisturized and prevent bleeding. I haveexplained this may not provide immediate relief, as it can often take 4 weeks to notice full benefitfrom it, but some response may be seen in 2 weeks. I have also asked that you begin using singulair since you are unable to take an antihistamine. If in 4 weeks you have had no improvement we will look to repeat your sinus CT. All questions answered today and you are comfortable with the above outlined treatment plan. documented in this encounter Progress Notes Yaima Corbin PA-C - 07/21/2019 9:00 AM EST [facility] Otolaryngology OFFICE NOTE Name: Dacia Contreras Date of : 1990 B Number: [id number] Date of Examination: 07/21/2019 Chief Complaint: Chief Complaint Patient presents with ? Sinus Problem History of Present Illness: Dacia Contreras is a 29-y.o. female who presents today for sinus pressure/pain for >1 month. She reports she has tried the neti pot, nasal sprays including flonase (for a couple of weeks), ayr nasal gel , decongestants and other OTC sinus medications and amoxicillin. Patient has never been allergy tested and does not know of any at this time. She deos not take an antihistamine because the "make me feel really weird and the opposite of drowsy, my heart races." She states the majority of her sinus pressure is in the bridge of the nose and under her eyes. States the right side is most bothersome. She denies other related symptoms or complaints. Past History: Past medical and surgical histories were reviewed. Patient Active Problem List Diagnosis ? Scoliosis ? Idiopathic scoliosis ? Chronic tonsillar hypertrophy ? Deviated nasal septum ? Hypertrophy, nasal, turbinate ? Abnormal uterine bleeding (AUB) ? Thrush of mouth and esophagus (HCC) Allergies: Allergies Allergen Reactions ? Benadryl Allergy TOUR ESCORT Reaction Hallucinations, rapid heart rate, after IV benadryl ? Prozac [Fluoxetine] Rash ? Zoloft GI Reaction Current Medications: Current medications include Current Outpatient Medications Medication Sig ? albuterol [...] current facility-administered medications for this visit. Social History: Social History Tobacco Use Smoking Status Never Smoker Smokeless Tobacco Never Used Social History Substance and Sexual Activity Alcohol Use Yes ? Alcohol/week: 2.0 standard drinks ? 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 Nose: nasal congestion, facial pressure She denies chronic nasal obstruction, nasal bleeding, othernasal drainage Oral: She denies oral pain, oral bleeding, dental pain, oral ulcerations or sores. Pharynx: She denies frequent sore throats, nausea or vomiting, or dysphagia. Larynx: She denies hoarseness, stridor or hemoptysis Neck: She denies neck masses or neck pain Skin: She denies prior facial or skin cancers or lesions. General Review of Systems: Respiratory: She denies dyspnea, stridor or wheezing. Cardiac: She denies chest pain or palpitations. Neurologic: She denies abnormal change in level of consciousness or motor impairment. All other systems were negative PHYSICAL EXAMINATION: Vital Signs: BP 110/78 | Pulse 80 | Ht 5' 10" (1.778 m) | Wt 162 lb 9.6 oz ( 73.8 kg) | SpO2 99% | BMI 23.33 kg/m General: Dacia Contreras is a well-developed, well-nourished 29-y.o. female who appears her statedage. The patient is alert and oriented x 3, in no acute distress without pallor, cyanosis or jaundice. Head: Normocephalic without masses. She does not have swelling in the parotid regions or in the submandibular salivary glands. Facial nerve function is intact and symmetrical bilaterally. Ears: Both pinnae are normal and well formed without skin lesions. External auditory canals are clear without cerumen. Tympanic membranes are intact and clear without bulging or retraction. No middle ear effusions are present. No cholesteatoma is evident in either ear. Nose: The external nose is clear without skin lesions. The nasal septum is intact and mildly deviated with small septal spur on the right. Nasal turbinates are mildly enlarged not boggy. No nasal polyps are noted. There is no nasal purulence or discharge. Nasopharynx: endoscopic examination of the nasopharynx revealed no masses. The eustachian orificeswere not obstructed. The adenoid pad was non- obstructing. There were no cysts noted. No signs of inflammation or infection were seen. Oral: The oral mucosa is clear: There are no lesions of the lips, palate, buccal mucosa, floor of mouth or tongue. There is good tongue mobility. Pharynx: Tonsils WNL. Pharynx is not injected. Larynx: She speaks with a clear voice. Neck: Neck exam does not show cervical lymphadenopathy or other masses.No skin lesions are noted inthe neck area. Neurologic: She is fully oriented and alert. PROCEDURE: Both nasal cavities were decongested with a 4% lidocaine and Afrin solution. Both nasal cavities were examined with a 0 degree sinus telescope. The findings are noted above. The patient tolerated the procedure well. ASSESSMENT: ICD-9-CM ICD-10-CM 1. Nasal congestion 478.19 R09.81 NASAL ENDOSCOPY, DIAGNOSTIC 2. Facial pressure 780.99 R68.89 NASAL ENDOSCOPY, DIAGNOSTIC 3. Mucous retention cyst of maxillary sinus 478.19 J34.1 PLANS AND RECOMMENDATIONS: Requested Prescriptions Signed Prescriptions Disp Refills ? montelukast (SINGULAIR) 10 MG Oral Tab 30 Tab 1 Sig: Take 1 Tab by mouth DAILY. Patient Instructions We have discussed the use of Flonase and Singulair today since you have difficulty with antihistamines. You did not adequately use the flonase for the recommended duration for symptom relief which is why we have discussed resuming this today You may use 2 sprays in each nostril once daily. Please point the tip of the nasal spray to the outside of the nose to help prevent irritation and bleeding. You will also want to use nasal saline (3 hours after Flonase) every 3-4 hours to help keep the noise moisturized and prevent bleeding. I haveexplained this may not provide immediate relief, as it can often take 4 weeks to notice full benefitfrom it, but some response may be seen in 2 weeks. I have also asked that you begin using singulair since you are unable to take an antihistamine. If in 4 weeks you have had no improvement we will look to repeat your sinus CT. All questions answered today and you are comfortable with the above outlined treatment plan. Yaima Corbin PA-C [facility] Otolaryngology Attending Physician: Dr. Jean-Pierre Moreno MD documented in this encounter Plan of Treatment Date Type Specialty Care Team Description 08/25/2019 Office Visit Otorhinolaryngology Yaima Corbin PA-C [address] [place] [address] Name Type Priority Associated Diagnoses Order Schedule NASAL ENDOSCOPY, Procedures Routine Nasal congestion Ordered: 07/21/2019 DIAGNOSTIC Facial pressure Health Maintenance Due Date Last Done Comments [...] filedocumented in this encounter Visit Diagnoses Diagnosis Nasal congestion Other diseases of nasal cavity and sinuses Facial pressure Mucous retention cyst of maxillary sinus Other diseases of nasal cavity and sinuses documented in this encounter Insurance Payer Benefit Plan / Subscriber ID Effective Dates Phone Address Type Group MILANA MOREJONBS [id number] 2018-Present [employer] Name Account Type Relation to Date of Phone Billing Address Patient Dacia Contreras Personal/Famil 1990 [phone] (Home) [place] [phone] [place] [address] 7 (Work) documented as of this encounter
[2019-07-28 11:53] VITALS: BP 130/75
--- NOTE | 2019-07-28 11:58 | UC ---
Throat Pain/Nasal [place] HPI - HPI Summary HPI Summary: 29 yo female presents with LEFT ear/head pain. She tells me that on sunday 07/23 she developed left posterior ear pain that is very painful to touch and with some head movement. Since that time her pain has significantly worsened and she feels it into her inner left ear and radiating to her occiput. She has taken tylenol and ibuprofen with no relief of the pain to any degree. Last night she felt feverish. She endorses a headache behind both of her eyes. Denies sinus symptoms, sore throat, cough, dizziness, vision changes, change in hearing, SOB , or chest pain. No recent illness. - History of Current Complaint Chief Complaint: UCHeadache Stated Complaint: EAR & NECK PAIN Time Seen by Provider: 07/28/19 11:57 Hx Obtained From: Patient Hx Last Menstrual Period: does not get it Onset/Duration: Sudden Onset Severity: Severe Pain Intensity: 8 Pain Scale Used: 0-10 Numeric - Allergies/Home Medications Allergies/Adverse Reactions: Allergies Allergy/AdvReac Type Severity Reaction Status Date / Time diphenhydramine Allergy Hallucinati Verified 07/28/19 13:30 ons ANTIHISTAMINES Allergy Unknown ANXIETY, Uncoded 07/28/19 11:53 HEART RACES Home Medications: Home Medications Multivit-Min/Iron Fum/Folic AC [Rbdnv-Tvhjhsc-Hxckuggm Tablet] 1 tab PO DAILY [History Confirmed 07/28/19] Acetaminophen [Masophen] 1,000 mg PO ONCE PRN 07/28/19 [History Confirmed ] Albuterol HFA INHALER* [Ventolin HFA Inhaler*] 2 puff INH Q4H PRN 07/28/19 [ History Confirmed 07/28/19] Biotin 10,000 mcg PO DAILY 07/28/19 [History Confirmed 07/28/19] Citalopram TAB* [CeleXA TAB*] 10 mg PO DAILY 07/28/19 [History Confirmed ] Ibuprofen [Advil Migraine] 800 mg PO DAILY 07/28/19 [History Confirmed 07/28/19] Ketorolac TAB * [Toradol TAB *] 10 mg PO Q6H 4 Days #12 tab 07/28/19 [Rx] Naproxen Sodium [Aleve] 440 mg PO ONCE PRN 07/28/19 [History Confirmed 07/28/19] l-Norgest/E.estradiol-E.estrad [Simpesse 0.15-0.03-0.01 mg Tab] 1 tab PO DAILY 07/28/19 [History Confirmed 07/28/19] PMH/Surg Hx/FS Hx/Imm Hx - Additional Past Medical History Additional PMH: None - Surgical History Surgical History: Yes Surgery Procedure, Year, and Place: tubes in ears - childhood, LAPAROSCOPIC SURGERY FOR ENDOMETRIOSIS 2018, TONSILLECTOMY 2018 - Family History Known Family History: Positive: Cardiac Disease - maternal grandfather, Diabetes - maternal grandfather, Blood Disorder - Anemia, Other - A Fib, murmur mother B12 deficient , possibly secondary to vegan diet Negative: Hypertension Family History: Both parents are living and healthy - Social History Lives: With Family Alcohol Use: Occasionally Alcohol Amount: 3-4 Substance Use Type: None Substance Use Comment - Amount & Last Used: occasional Smoking Status (MU): Never Smoked Tobacco - Immunization History Most Recent Influenza Vaccination: No Most Recent Tetanus Shot: unknown Most Recent Pneumonia Vaccination: never Review of Systems All Other Systems Reviewed And Are Negative: No Constitutional: Positive: Negative Skin: Positive: Negative Eyes: Positive: Negative ENT: Positive: Ear Ache Respiratory: Positive: Negative Cardiovascular: Positive: Negative Gastrointestinal: Positive: Negative Neurovascular: Positive: Negative Neurological/Mental Status: Positive: Headache Psychological: Positive: Negative Physical Exam - Summary Physical Exam Summary: GENERAL: NAD. WDWN. No pain distress. SKIN: No rashes, sores, lesions, or open wounds. HEENT: Head: AT/NC. Severe TTP at left mastoid and SCM near mastoid. No ecchymosis or nagy sign. No edema, warmth, erythema, or fluctuance. Eyes: EOM intact. Conjunctiva clear without inflammation or discharge. Ears: Hearing grossly normal. TMs intact, no bulging, erythema, or edema. Nose: Nasal mucosa pink and moist. NTTP maxillary and frontal sinus. Throat: Posterior oropharynx without exudates, erythema, or tonsillar enlargement. Uvula midline. NECK: FROM. Pain at noted area with neck flexion and turning head side to side. CHEST: CTAB. No r/r/w. No accessory muscle use. Breathing comfortably and in no distress. CV: RRR. Pulses intact. Cap refill <2seconds NEURO: Alert. PSYCH: Age appropriate behavior. Triage Information Reviewed: Yes Vital Signs: Initial Vital Signs Temp 98.2 F 07/28/19 11:49 Pulse 92 07/28/19 11:49 Resp 18 07/28/19 11:49 BP 130/75 07/28/19 11:49 Pulse Ox 97 07/28/19 11:49 Multivit-Min/Iron Fum/Folic AC [Vakxj-Xmjpvmt-Ssddcwas Tablet] 1 tab PO DAILY [History Confirmed 07/28/19] Magnesium Oxide [Magnesium] 250 mg PO DAILY WITH MEAL 10/18/18 [History Confirmed 07/28/19] Fluticasone NASAL SPRAY 50MCG* [Flonase NASAL SPRAY 50MCG*] 2 spray BOTH NARES DAILY #1 btl 05/23/19 [Rx Confirmed 07/28/19] Acetaminophen [Masophen] 1,000 mg PO ONCE PRN 07/28/19 [History Confirmed ] Ibuprofen [Advil Migraine] 800 mg PO DAILY 07/28/19 [History Confirmed 07/28/19] Naproxen Sodium [Aleve] 440 mg PO ONCE PRN 07/28/19 [History Confirmed 07/28/19] l-Norgest/E.estradiol-E.estrad [Simpesse 0.15-0.03-0.01 mg Tab] 1 tab PO DAILY 07/28/19 [History Confirmed 07/28/19] Vital Signs Reviewed: Yes Throat Pain/Nasal Course/Dx - Course Course Of Treatment: Pain is out of proportion to exam and she has had no injury. Tylenol and ibuprofen has not provided her any relief of her discomfort and she feels her pain is worsening with feeling feverish last night. She does not exhibit any obvious signs of an infectious process. This could be an underlying mastoiditis or soft tissue abscess, but ddx includes MSK etiology. I asked Dr. Nuñez to eval pt and she favors MSK in origin, but pt stated her pain was into her left ear as well therefore agrees with possible ddx as above and recommends further eval in the ED. I spoke with Dr. Suarez in the ED and made him aware of pt, exam, and considerations here today. Pt voiced understanding and will go to the ED now. - Differential Dx/Diagnosis Provider Diagnosis: Pain of left mastoid Discharge ED - Sign-Out/Discharge Documenting (check all that apply): Patient Departure All imaging exams completed and their final reports reviewed: No Studies - Discharge Plan Condition: Stable Disposition: HOME-RECOMMEND TO ED Referrals: Kim Babcock MD [Primary Care Provider] - Additional Instructions: I recommend that you go to the ER for your severe ear/head pain. Suspicion in the clinic today for mastoiditis or underlying soft tissue abscess. - Billing Disposition and Condition Condition: STABLE Disposition: Home-Recommend to ED - Attestation Statements Provider Attestation: I was available for consult. This patient was seen by the [facility]. The patient was not presented to, seen by, or examined by me. -Juan Daniel
== END 2019-07-28 13:00 | disposition home health service (06) ==
LOC: UCEAST 11:26
DX: H92.02 Otalgia, left ear (principal); M54.2 Cervicalgia; R51 Headache; Z88.8 Allergy status to other drugs, medicaments and biological substances
CPT/HCPCS: 99212; G0463

== ENCOUNTER 2019-07-28 13:22 | Emergency (ER) | payer BC ==
[2019-07-28 14:52] LABS: ABS Eosinophils 0.1 10^3/ul (0-0.6); ABS Lymphocytes 1.3 10^3/ul (1.0-4.8); ABS Monocytes 0.5 10^3/ul (0-0.8); ABS Neutrophils 3.1 10^3/ul (1.5-7.7); Eosinophil % 1.4 %; Hematocrit 42 % (35-47); Hemoglobin 14.6 g/dL (12.0-16.0); Lymphocyte % 26.3 %; Mean Corpuscular HGB Conc 35 g/dL (31-36); Mean Corpuscular Hemoglobin 33 pg (27-31); Mean Corpuscular Volume 94 fL (80-97); Mean Platelet Volume 7.6 fL (7.4-10.4); Nucleated Red Blood Cells % 0.1; Platelet Count 192 10^3/uL (150-450); Red Blood Count 4.42 10^6 /uL (3.70-4.87); Red Cell Distribution Width 12 % (10-15); White Blood Count 4.9 10^3/uL (3.5-10.8)
[2019-07-28 15:09] LABS: ALT 11 U/L (7-52); AST 17 U/L (13-39); Albumin 4.3 g/dL (3.2-5.2); Albumin/Globulin Ratio 1.7 (1-3); Alkaline Phosphatase 34 U/L (34-104); Anion Gap 7 mmol/L (2-11); Blood Urea Nitrogen 9 mg/dL (6-24); CO2 Carbon Dioxide 26 mmol/L (22-32); Chloride 105 mmol/L (101-111); EGFR African American 89.6 (>60); Globulin 2.6 g/dL (2-4); Glucose 83 mg/dL (70-100); Potassium 4.1 mmol/L (3.5-5.0); Sodium 138 mmol/L (135-145); Total Protein 6.9 g/dL (6.4-8.9)
[2019-07-28 15:15] LABS: HCG Pregnancy < 0.60 mIU/mL
[2019-07-28] MEDS ORDERED: Ketorolac INJ* 30 MG/ML 1 ML VIAL IV ONE (15:30)
--- NOTE | 2019-07-28 15:32 | ED ---
Throat Pain/Nasal Congestion - HPI Summary HPI Summary: This pt is a 29 Y/O F presenting to [facility] with a CC of left ear pain that is currently rated an 8/10 in severity. She presents from [facility] w concern for mastoiditis and for further imaging. She states that the pain has been increasing since 07/23/2019 without relief. She states that the pain is described as pressure. She denies any fevers, chills, headaches, SOB and CP. She has no pertinent PMHx and states that she has a FHx of DM and HTN. She has no aggravating or alleviating factors. - History of Current Complaint Chief Complaint: EDNeckComplaint Time Seen by Provider: 07/28/19 15:21 Hx Obtained From: Patient Onset/Duration: Sudden Onset, Lasting Days - 5, Still Present Severity: Moderate Cough: None - Allergies/Home Medications Allergies/Adverse Reactions: Allergies Allergy/AdvReac Type Severity Reaction Status Date / Time diphenhydramine Allergy Hallucinati Verified 07/28/19 13:30 ons ANTIHISTAMINES Allergy Unknown ANXIETY, Uncoded 07/28/19 11:53 HEART RACES Home Medications: Home Medications Multivit-Min/Iron Fum/Folic AC [Ezkqw-Tuxreny-Pmqridxz Tablet] 1 tab PO DAILY [History Confirmed 07/28/19] Acetaminophen [Masophen] 1,000 mg PO ONCE PRN 07/28/19 [History Confirmed ] Albuterol HFA INHALER* [Ventolin HFA Inhaler*] 2 puff INH Q4H PRN 07/28/19 [ History Confirmed 07/28/19] Biotin 10,000 mcg PO DAILY 07/28/19 [History Confirmed 07/28/19] Citalopram TAB* [CeleXA TAB*] 10 mg PO DAILY 07/28/19 [History Confirmed ] Ibuprofen [Advil Migraine] 800 mg PO DAILY 07/28/19 [History Confirmed 07/28/19] Ketorolac TAB * [Toradol TAB *] 10 mg PO Q6H 4 Days #12 tab 07/28/19 [Rx] Naproxen Sodium [Aleve] 440 mg PO ONCE PRN 07/28/19 [History Confirmed 07/28/19] l-Norgest/E.estradiol-E.estrad [Simpesse 0.15-0.03-0.01 mg Tab] 1 tab PO DAILY 07/28/19 [History Confirmed 07/28/19] PMH/Surg Hx/FS Hx/Imm Hx Previously Healthy: Yes Endocrine/Hematology History: Denies: Hx Diabetes, Hx Thyroid Disease Cardiovascular History: Reports: Other Cardiovascular Problems/Disorders - SVT Denies: Hx Congestive Heart Failure, Hx Hypertension, Hx Pacemaker/ICD Respiratory History: Denies: Hx Asthma, Hx Chronic Obstructive Pulmonary Disease (COPD) GI History: Denies: Hx Ulcer History: Denies: Hx Dialysis, Hx Renal Disease Musculoskeletal History: Reports: Hx Scoliosis Sensory History: Reports: Hx Contacts or Glasses Denies: Hx Hearing Aid Opthamlomology History: Reports: Hx Contacts or Glasses Psychiatric History: Denies: Hx Panic Disorder - Cancer History Hx Chemotherapy: No Hx Radiation Therapy: No - Surgical History Surgical History: Yes Surgery Procedure, Year, and Place: tubes in ears - childhood, LAPAROSCOPIC SURGERY FOR ENDOMETRIOSIS 2018, TONSILLECTOMY 2018 - Immunization History Immunizations Up to Date: Yes Infectious Disease History: No Infectious Disease History: Denies: Hx Clostridium Difficile, Hx Hepatitis, Hx Human Immunodeficiency Virus (HIV), Hx of Known/Suspected MRSA, Hx Shingles, Hx Tuberculosis, Hx Known/ Suspected VRE, Hx Known/Suspected VRSA, History Other Infectious Disease, Traveled Outside the [place] in Last 30 Days - Family History Known Family History: Positive: Cardiac Disease - maternal grandfather, Diabetes - maternal grandfather, Blood Disorder - Anemia, Other - A Fib, murmur mother B12 deficient , possibly secondary to vegan diet Negative: Hypertension Family History: Both parents are living and healthy - Social History Occupation: Employed Full-time Lives: Alone Alcohol Use: Occasionally Alcohol Amount: 3-4 Hx Substance Use: Yes Substance Use Type: Reports: None Substance Use Comment - Amount & Last Used: occasional Hx Tobacco Use: No Smoking Status (MU): Never Smoked Tobacco Review of Systems - ROS Summary Review of Systems Summary: Home Medications Medication Instructions Recorded Confirmed Type Multivit-Min/Iron Fum/Folic AC 1 tab PO DAILY 07/15/18 07/28/19 History [Qozne-Vnslgee-Jpetsczx Tablet] Acetaminophen [Masophen] 1,000 mg PO ONCE PRN 07/28/19 07/28/19 History Albuterol HFA INHALER* [Ventolin 2 puff INH Q4H PRN 07/28/19 07/28/19 History HFA Inhaler*] Biotin 10,000 mcg PO DAILY 07/28/19 07/28/19 History Citalopram TAB* [CeleXA TAB*] 10 mg PO DAILY 07/28/19 07/28/19 History Ibuprofen [Advil Migraine] 800 mg PO DAILY 07/28/19 07/28/19 History Naproxen Sodium [Aleve] 440 mg PO ONCE PRN 07/28/19 07/28/19 History l-Norgest/E.estradiol-E.estrad 1 tab PO DAILY 07/28/19 07/28/19 History [Simpesse 0.15-0.03-0.01 mg Tab] Negative: Fever, Chills ENT: Other Positive: Epistaxis - L ear pain Negative: Chest Pain Negative: Shortness Of Breath Negative: Headache All Other Systems Reviewed And Are Negative: Yes Physical Exam - Summary Physical Exam Summary: Constitutional: Well-developed, Well-nourished, Alert. (-) Distressed Skin: Warm, Dry HENT: Normocephalic; Atraumatic, tenderness over the L mastoid process, Bilateral TMs, cordon and pearly Eyes: Conjunctiva normal Neck: Musculoskeletal ROM normal neck. (-) JVD, (-) Stridor, (-) Nuchal rigidity Cardio: Rhythm regular, rate normal, Heart sounds normal; Intact distal pulses; Radial pulses are 2+ and symmetric. (-) Murmur Pulmonary/Chest wall: Effort normal. (-) Respiratory distress, (-) Wheezes, (-) Rales Abd: Soft, (-) tenderness, (-) Distension, (-) Guarding, (-) Rebound Musculoskeletal: (-) Edema Lymph: (-) Cervical adenopathy Neuro: Alert, Oriented x3 Psych: Mood and affect Normal Triage Information Reviewed: Yes Vital Signs On Initial Exam: Initial Vitals Temp Pulse Resp BP Pulse Ox 98.3 F 77 16 150/88 98 07/28/19 13:27 07/28/19 13:27 07/28/19 13:27 07/28/19 13:27 07/28/19 13:27 Vital Signs Reviewed: Yes Procedures - Sedation Patient Received Moderate/Deep Sedation with Procedure: No Diagnostics - Vital Signs Vital Signs Temp Pulse Resp BP Pulse Ox 07/28/19 13:27 98.3 F 77 16 150/88 98 - Laboratory Lab Results: Lab Results 07/28/19 07/28/19 Range/Units 14:45 14:45 WBC 4.9 (3.5-10.8) 10^3/uL RBC 4.42 (3.70-4.87) 10^6 /uL Hgb 14.6 (12.0-16.0) g/dL Hct 42 (35-47) % MCV 94 (80-97) fL MCH 33 H (27-31) pg MCHC 35 (31-36) g/dL RDW 12 (10-15) % Plt Count 192 (150-450) 10^3/uL MPV 7.6 (7.4-10.4) fL Neut % (Auto) 62.5 % Lymph % (Auto) 26.3 % Rooks % (Auto) 9.4 % Eos % (Auto) 1.4 % Baso % (Auto) 0.4 % Absolute Neuts (auto) 3.1 (1.5-7.7) 10^3/ul Absolute Lymphs (auto) 1.3 (1.0-4.8) 10^3/ul Absolute Monos (auto) 0.5 (0-0.8) 10^3/ul Absolute Eos (auto) 0.1 (0-0.6) 10^3/ul Absolute Basos (auto) 0.0 (0-0.2) 10^3/ul Absolute Nucleated RBC 0.0 10^3/ul Nucleated RBC % 0.1 Sodium 138 (135-145) mmol/L Potassium 4.1 (3.5-5.0) mmol/L Chloride 105 (101-111) mmol/L Carbon Dioxide 26 (22-32) mmol/L Anion Gap 7 (2-11) mmol/L BUN 9 (6-24) mg/dL Creatinine 0.90 (0.51-0.95) mg/dL Est GFR ( Amer) 89.6 (>60) Est GFR (Non-Af Amer) 74.0 (>60) BUN/Creatinine Ratio 10.0 (8-20) Glucose 83 (70-100) mg/dL Calcium 9.0 (8.6-10.3) mg/dL Total Bilirubin 0.50 (0.2-1.0) mg/dL AST 17 (13-39) U/L ALT 11 (7-52) U/L Alkaline Phosphatase 34 (34-104) U/L Total Protein 6.9 (6.4-8.9) g/dL Albumin 4.3 (3.2-5.2) g/dL Globulin 2.6 (2-4) g/dL Albumin/Globulin Ratio 1.7 (1-3) Beta HCG, Quant < 0.60 mIU/mL Result Diagrams: 07/28/19 14:45 07/28/19 14:45 Lab Statement: Any lab studies that have been ordered have been reviewed, and results considered in the medical decision making process. - CT Temporal Bone CT CT Interpretation Completed By: Radiologist Summary of CT Findings: No acute findings. No evidence of acute mastoiditis. Re-Evaluation - Re-Evaluation First Eval Re-Evaluation Time: 18:20 Change: Improved - d/w patient neg CT results, given toradol rx EENT Course/Dx - Course Course Of Treatment: 29 y/o F w L mastoid pain presenting from for concern over mastoiditis. - PE well appearing, tenderness over L mastoid. Left TM normal. Afebrile. Normal WBC. Lower suspicion but will check CT temporal bone. - given toradol for pain - Diagnoses Provider Diagnoses: Mastoid pain Discharge ED - Sign-Out/Discharge Documenting (check all that apply): Patient Departure - discharge - Discharge Plan Condition: Stable Disposition: HOME Prescriptions: Ketorolac TAB * [Toradol TAB *] 10 mg PO Q6H 4 Days #12 tab Patient Education Materials: Neck Pain (ED) Referrals: Kim Babcock MD [Primary Care Provider] - Additional Instructions: You were seen in the emergency department for pain behind her ear. Your CT scan did not show any evidence of any infection. Please follow up with your primary care doctor in next 2-3 days and return to emergency department for worsening pain, or any worsening or concerning symptoms. It was a pleasure taking care of you today. - Billing Disposition and Condition Condition: STABLE Disposition: Home - Attestation Statements Document Initiated by Scribe: Yes Documenting Scribe: Harvey Guerra Provider For Whom Scribe is Documenting (Include Credential): Rosana Marin MD Scribe Attestation: I, Harvey Guerra, scribed for Rosana Marin MD on 07/29/19 at 0657. Scribe Documentation Reviewed: Yes Provider Attestation: The documentation as recorded by the scribeHarvey accurately reflects the service I personally performed and the decisions made by me, Rosana Marin MD Status of Scribe Document: Viewed
[2019-07-28] MEDS ORDERED: Iohexol 300* (CONTRAST) 10 ML SDV IV ONE (16:01)
[2019-07-28 18:49] VITALS: BP 125/85
== END 2019-07-28 18:47 | disposition home or self-care (01) ==
LOC: ED 13:22
DX: H92.02 Otalgia, left ear (principal); Z79.899 Other long term (current) drug therapy; Z88.8 Allergy status to other drugs, medicaments and biological substances
CPT/HCPCS: 36415; 70481; 80053; 84702; 85025; 96374; 99283; J1885; Q9967